=== PATIENT | male | born 1960 | race Caucasian/White ===

== ENCOUNTER → 2017-10-01 14:28 | Outpatient (CLI) | payer OTHER, SELFPAY ==
--- NOTE | 2017-10-01 14:33 | RAD_ITS ---
STUDY: X-RAY CHEST REASON FOR EXAM: Male, 57 years old. Congestion since Thanksgiving, several rounds of antibiotics. TECHNIQUE: PA and lateral views of the chest. COMPARISON: None. FINDINGS: There are areas of hyperinflation. Linear left basilar markings likely scarring rather than atelectasis. There is no demonstrated pleural abnormality. Normal size heart. Normal mediastinum and narendra. Normal visualized pulmonary arteries. Normal visualized aortic arch and descending thoracic aorta. There are diffuse degenerative changes of the visualized thoracic spine. There is loss of mid vertebral body height with mild kyphosis. Normal visualized ribs, clavicles, and shoulders. There is no demonstrated abnormality of the visualized soft tissue structures of the upper abdomen. RAD/Chest PA and Lateral IMPRESSION: Component of COPD with mild chronic interstitial lung disease suspected. No pulmonary edema, congestive heart failure or confluent pneumonia. Other nonacute findings as outlined above. Electronically Signed: Pennie Key MD at 3:40 EST , Service support ,
== END ==
PROVIDERS: Family Provider Family Medicine; PCP Family Medicine; Visit Provider Family Medicine
DX: J98.01 Acute bronchospasm (principal)
CPT/HCPCS: 71046

== ENCOUNTER → 2018-06-08 08:46 | Outpatient (CLI) | payer OTHER, SELFPAY ==
[2018-06-08 10:38] LABS: AST(SGOT) 17 U/L (15-37); Alanine Aminotransfer ALT/SGPT 21 U/L (16-61); Anion Gap 4 (5-15); BUN 18 mg/dL (7-18); BUN/Creat Ratio 14.3 RATIO (10-20); Calcium,Total 8.7 mg/dL (8.5-10.1); Chloride 105 mmol/L (98-107); Cholesterol 179 mg/dL (200); Creatinine, Serum 1.26 mg/dL (0.70-1.30); EST Glomerular Filtration Rate 63 mL/min (>60); Est Glom Filt Rate - Afr Amer 76 mL/min (>60); Glucose 95 mg/dL (74-106); High Density Lipoprotein 54 mg/dL; Potassium 4.4 mmol/L (3.5-5.1); Sodium Level 139 mmol/L (136-145); Thyroid Stim Hormone (TSH) 1.48 uIU/mL (0.358-3.74); Triglycerides 68 mg/dL; Very Low Density Lipoprotein 14 mg/dL (5-40)
== END ==
PROVIDERS: Family Provider Family Medicine; PCP Family Medicine; Referring Provider Family Medicine; Visit Provider Family Medicine
DX: E78.5 Hyperlipidemia, unspecified (principal); R89.9 Unspecified abnormal finding in specimens from other organs, systems and tissues
CPT/HCPCS: 36415; 80048; 80061; 83036; 84443; 84450; 84460

== ENCOUNTER → 2018-09-04 14:53 | Outpatient (CLI) | payer OTHER, SELFPAY ==
--- NOTE | 2018-09-04 14:56 | RAD_ITS ---
STUDY: X-RAY CHEST REASON FOR EXAM: Male, 58 years old. Cough, wheezing x4 months. TECHNIQUE: PA and lateral views of the chest. COMPARISON: PA and lateral chest x-ray October 01, 2017. FINDINGS: Curvilinear density in the inferolateral left lower lobe consistent with subsegmental atelectasis or scarring. The lungs are otherwise clear and expanded. There is no demonstrated pleural abnormality. Normal size heart. Normal mediastinum and narendra. Normal visualized pulmonary arteries. Normal visualized aortic arch and descending thoracic aorta. There are stable degenerative changes of the visualized thoracic spine as well as stable mild anterior wedging of 2 contiguous mid thoracic vertebrae, likely T8 and T9. 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 There is no demonstrated abnormality of the visualized soft tissue structures of the upper abdomen. RAD/Chest PA and Lateral IMPRESSION: Minor curvilinear subsegmental atelectasis or scarring in the left lung base. Electronically Signed: Silvestre Kelly MD at 14:58 EST , Service support ,
== END ==
PROVIDERS: Family Provider Family Medicine; PCP Family Medicine; Referring Provider Family Medicine; Visit Provider Family Medicine
DX: R05 Cough (principal)
CPT/HCPCS: 71046

== ENCOUNTER → 2018-10-23 15:48 | Outpatient (CLI) | payer OTHER, SELFPAY ==
[2018-10-23 17:47] LABS: AST(SGOT) 24 U/L (15-37); Alanine Aminotransfer ALT/SGPT 30 U/L (16-61); Cholesterol 198 mg/dL (200); High Density Lipoprotein 50 mg/dL; PSA,Total - Annual Screen 0.59 ng/mL (0.00-4.00); Triglycerides 246 mg/dL; Very Low Density Lipoprotein 49 mg/dL (5-40)
== END ==
PROVIDERS: Family Provider Family Medicine; PCP Family Medicine; Referring Provider Family Medicine; Visit Provider Family Medicine
DX: Z00.00 Encounter for general adult medical examination without abnormal findings (principal); E78.5 Hyperlipidemia, unspecified
CPT/HCPCS: 36415; 80061; 84153; 84450; 84460; G0103

== ENCOUNTER → 2018-11-12 08:52 | Outpatient (CLI) | payer OTHER, SELFPAY ==
--- NOTE | 2018-11-12 09:57 | BD_ITS ---
STUDY: DUAL ENERGY X-RAY ABSORPTIOMETRY / DXA REASON FOR EXAM: Male, 58 years old. Compression fracture of the T8 vertebra. No loss of height. TECHNIQUE: Bone Mineral Density (BMD) measurements of lumbar spine and bilateral hips were obtained. COMPARISON: None. FINDINGS: Lumbar Spine (L1-L4): g/cm2 (1.163) / T-score (-0.5) / Z-score (-0.2) Findings are suggestive of normal bone density with a low fracture risk. Left Femur Total: g/cm2 (1.071) / T-score (-0.2) / Z-score (0.2) Left Femoral Neck: g/cm2 (1.077) / T-score (0.1) / Z-score (0.9) Right Femur Total: g/cm2 (1.029) / T-score (-0.5) / Z-score (-0.1) Right Femoral Neck: g/cm2 (1.035) / T-score (-0.3) / Z-score (0.6) BD/Dexa Bone Density Study IMPRESSION: The patient is considered normal as outlined below according to World [place] Organization (WHO) criteria with a low fracture risk. Reference Information: The T-score is the number of standard deviations above or below the standard which is normal for young adults at their peak bone mineral density. The World Health Organization (WHO) interprets the T-scores as follows: Above -1 Normal bone density Between -1 and -2.5 Osteopenia Equal to / or below -2.5 Osteoporosis As a practical clinical guideline, osteopenia may be graded as follows: Mild -1 through -1.5 Moderate -1.6 through -2.0 Severe -2.1 through -2.4 The Z-score is the number of standard deviations above or below age-matched controls. A Z-score of less than -1.5 would be considered abnormal. References: 1. NIH Osteoporosis and Related Bone Diseases http://www.osteo.org 2. International Society for Clinical Densitometry http://www.iscd.org 3. National Osteoporosis Foundation http://www.nof.org Electronically Signed: Vicente Reid, at 15:45 EDT , Service support ,
== END ==
PROVIDERS: Family Provider Family Medicine; PCP Family Medicine; Referring Provider Family Medicine; Visit Provider Family Medicine
DX: M48.54XA Collapsed vertebra, not elsewhere classified, thoracic region, initial encounter for fracture (principal)
CPT/HCPCS: 77080

== ENCOUNTER 2018-11-18 09:04 | Day surgery (SDC) | payer OTHER, SELFPAY ==
[2018-11-18 09:25] VITALS: BP 135/81; PULSE 69; RESP 16; TEMP 36.7; O2SAT 99; BMI 24.6
--- NOTE | 2018-11-18 09:59 | PCM.HP.STD ---
Problem List (1) Screening for colon cancer Status: Acute History of Present Illness Date of Admission: 11/18/18 The patient is a 58 year old M who presents for screening colonoscopy. His last colonoscopy was more than 20 years ago Past Medical History Allergies No Known Allergies Allergy (Verified 11/14/18 11:29) Home Medications: Ambulatory Orders Medication Instructions Recorded Aspirin [Aspirin, Baby] 81 mg PO QHS 11/14/18 Atorvastatin Calcium [Lipitor] 20 mg PO QHS 11/14/18 Smoking Status: Never smoker - *Family History Maternal History Items: No pertinent history Review of Systems Cardiovascular: Denies: Chest Pain, Chest Pressure, Chest Tightness, Palpitations Respiratory: Denies: Cough, Hemoptysis, Shortness of breath at rest, Shortness of breath upon exertion, Wheezing Gastrointestinal: Denies: Abdominal Pain, Constipation, Diarrhea, Hematemesis, Nausea, Melena, Vomiting VTE Information - Inpt Only VTE Present on Admission: No VTE Mechan Device Prophylaxis: None VTE Pharm Prophylaxis ordered?: No Reason prophylaxis not ordered:: Treatment Not Indicated Patient Problems: Active and Suspected Problems Screening for colon cancer (Acute) - Physical Exam General: Alert, Oriented x3 Lungs: Clear to auscultation Cardiovascular: Regular rate, Regular Rhythm, No murmurs Abdomen: Bowel Sounds Present, Soft, Non Tender, Non-Distended Vital Signs Temp Pulse Resp BP Pulse Ox 98.1 F 69 16 135/81 H 99 11/18/18 09:25 11/18/18 09:25 11/18/18 09:25 11/18/18 09:25 11/18/18 09:25 Oxygen Delivery Method Room Air Weight: 181 lb 7.047 oz Body Mass Index (BMI) 24.6 Assessment/Plan All Active Problems Screening for colon cancer (Acute) My plan is to perform a colonoscopy. Risk and benefits have been reviewed in detail with the patient and his . Including but not limited to bleeding injury to the colon which could require further surgeries. Patient agrees to proceed.
[2018-11-18 10:25] VITALS: BP 107/78; BP 135/81; PULSE 59; RESP 16; TEMP 36.8; O2SAT 95
--- NOTE | 2018-11-18 10:26 | OP.ENDO_ITS ---
11/18/2018 Keke Boyd [address] [place] [address] Re : Colonoscopy procedure for Damien Braden Dear Dr. Boyd This procedure was performed on Sunday, November 18, 2018. My impressions and recommendations are as follows: Impressions : - The entire examined colon is normal. - No specimens collected. Recommendations : - Discharge patient to home. - Resume previous diet. - Continue present medications. - Repeat colonoscopy in 5 years because the bowel preparation was poor. - Return to primary care physician at appointment to be scheduled. My findings are described in the full procedure note, which is enclosed. If I can be of further assistance, please feel free to contact me at Doctor phone number(s): , Fax: [phone], Work: . Sincerely, MD Hubert Leigh MD 11/18/2018 10:26:29 AM This report has been signed electronically.
[2018-11-18 10:30] VITALS: BP 108/73; BP 135/81; PULSE 59; RESP 16; O2SAT 95
[2018-11-18 10:35] VITALS: BP 108/73; BP 135/81; PULSE 54; RESP 16; O2SAT 94
[2018-11-18 10:40] VITALS: BP 109/76; BP 135/81; PULSE 61; RESP 16; TEMP 36.7; O2SAT 94
[2018-11-18 10:58] VITALS: BP 135/81
== END 2018-11-18 11:09 | disposition home or self-care (01) ==
LOC: EN 09:04 → AC 09:06
PROVIDERS: Family Provider Family Medicine; PCP Family Medicine; Referring Provider Surgery; Visit Provider Surgery
PROC: 0DJD8ZZ Inspection of Lower Intestinal Tract, Via Natural or Artificial Opening Endoscopic (ICD-10-PCS; CPT 45378; principal; 2018-11-18 09:55)
DX: Z12.11 Encounter for screening for malignant neoplasm of colon (principal); E78.00 Pure hypercholesterolemia, unspecified; J45.909 Unspecified asthma, uncomplicated; G47.30 Sleep apnea, unspecified; Z79.82 Long term (current) use of aspirin; Z79.899 Other long term (current) drug therapy
CPT/HCPCS: 45378; J7120; J1610

== ENCOUNTER → 2020-06-22 12:07 | Outpatient (CLI) | payer BC, SELFPAY ==
[2020-06-22 11:16] VITALS: BMI 24.0
[2020-06-22 12:34] LABS: Absolute Lymphocyte Count 1.72 X10^3/uL (0.83-4.51); Basophil# 0.11 X10^3/uL; Basophil% 1.5 % (0-1); Eosinophil# 0.76 X10^3/uL; Eosinophils% 10.5 % (0-5); Hematocrit 44.8 % (40-54); Hemoglobin 14.7 g/dL (13.0-16.5); Lymphocyte # 1.72 X10^3/ul (4.0); Lymphocyte % 23.8 % (19-41); Mean Corp Hgb Conc 32.8 g/dL (32-36); Mean Corpuscular Hgb 29.3 pg (27.0-32.0); Mean Corpuscular Volume 89.4 fL (80-94); Mean Platelet Vol. 9.3 fl (6.2-12.0); Monocyte# 0.63 X10^3/uL; Monocyte% 8.7 % (0-10); NRBC Flagged by Analyzer 0 % (0-5); Neutrophil # 3.97 X10^3/uL (2.7-7.7); Neutrophil % 54.9 % (47-70); Platelet Count 220 K/mm3 (150-450); RBC Distribution Width SD 39.4 fl (35.1-43.9); Red Blood Count 5.01 M/mm3 (4.6-6.2); White Blood Count 7.2 K/mm3 (4.4-11.0)
[2020-06-24 20:08] LABS: Alternaria tenuis 1.61 kU/L (Class III); Ash, White 0.34 kU/L (Class I); Aspergillus fumigatus 0.18 kU/L (Class 0/I); Birch <0.10 kU/L (Class 0); Black Walnut 0.43 kU/L (Class I); Cat Hair / Dander,Stand 4.98 kU/L (Class IV); Cedar, Mountain 0.47 kU/L (Class I); Cockroach, American 0.27 kU/L (Class 0/I); Cottonwood 0.42 kU/L (Class I); D farinae Mite 0.43 kU/L (Class I); D pteronyssinus 0.44 kU/L (Class I); Dog Epithelia 5.57 kU/L (Class IV); Elm, American White 0.47 kU/L (Class I); Immunoglobulin E 650 IU/mL (6-495); Mulberry, White 0.25 kU/L (Class 0/I); Oak, White 0.36 kU/L (Class I); Pecan 0.34 kU/L (Class I); Penicillium Notatum <0.10 kU/L (Class 0); Ragweed, Short/Common 0.57 kU/L (Class II); Russian Thistle 0.44 kU/L (Class I); Sheep Sorrel 0.39 kU/L (Class I); Sycamore, American 0.37 kU/L (Class I); Timothy Grass 0.42 kU/L (Class I)
[2020-06-24 21:37] LABS: Mouse Urine <0.10 kU/L (Class 0)
[2020-06-26 03:06] LABS: Aspirgillus flavus Negative (Neg:<1:1); Aspirgillus fumigatus Negative (Neg:<1:1); Aspirgillus niger Negative (Neg:<1:1); Cytoplasmic Ab (C-ANCA) <1:20 titer (Neg:<1:20)
[2020-06-28 10:04] LABS: Immunoglobulin E 678 IU/mL (6-495); Perinuclear Ab (P-ANCA) <1:20 titer (Neg:<1:20)
== END ==
PROVIDERS: PCP Family Medicine; Referring Provider Internal Medicine Critical Care Medicine; Visit Provider Internal Medicine Critical Care Medicine
DX: J45.909 Unspecified asthma, uncomplicated (principal)
CPT/HCPCS: 36415; 82785; 85025; 86003; 86256; 86606

== ENCOUNTER → 2020-06-29 08:11 | Outpatient (CLI) | payer BC, SELFPAY ==
[2020-06-22 11:16] VITALS: BMI 24.0
--- NOTE | 2020-06-29 15:13 | PFTCOMP_ITS ---
COMPLETE PULMONARY FUNCTION TEST INTERPRETATION Brief HPI: Patient is a 60 year old male, currently under the care of Dr. Chatman, who presents to [facility] for complete pulmonary function tests secondary to diagnosis of asthma. Respiratory therapist reports good effort and reproducible results. Interpretation: Forced expiration spirometry shows no large airways obstructive ventilatory defect with an FEV1 of 101% predicted. There is no significant bronchodilator response by strict ATS criteria, but this barely missed criteria. Spirograms are of good quality and plateau slowly, indicating slowly emptying areas of the lungs. The respiratory flow volume loop shows decreased expiratory flow rates at high lung volumes consistent with small airways obstruction. Lung volumes by body plethysmography show a normal total lung capacity at 7.89 L, 111% predicted. All other lung volumes are within normal limits. Diffusion capacity by carbon monoxide is elevated at 132% predicted. The airway resistance is normal. No previous pulmonary function tests were available for review. Impression: Grossly normal pulmonary function test that barely misses criteria for a positive bronchodilator response.
== END ==
PROVIDERS: PCP Family Medicine; Referring Provider Internal Medicine Critical Care Medicine; Visit Provider Internal Medicine Critical Care Medicine
DX: J45.909 Unspecified asthma, uncomplicated (principal)
CPT/HCPCS: 94060; 94726; 94729

== ENCOUNTER → 2020-09-10 11:23 | Outpatient (CLI) | payer BC, SELFPAY ==
[2020-09-10 10:48] VITALS: BMI 25.3
[2020-09-10 11:43] LABS: Absolute Lymphocyte Count 1.94 X10^3/uL (0.83-4.51); Absolute Neutrophil Count 4.7 X10^3/uL (2.0-7.7); Basophil% 1.2 % (0-1); Eosinophils% 7.3 % (0-5); Hemoglobin 14.9 g/dL (13.0-16.5); Lymphocyte # 1.94 X10^3/ul (4.0); Lymphocyte % 23.7 % (19-41); Mean Corp Hgb Conc 33.1 g/dL (32-36); Mean Corpuscular Hgb 29.5 pg (27.0-32.0); Mean Corpuscular Volume 89.1 fL (80-94); Mean Platelet Vol. 9.4 fl (6.2-12.0); Monocyte# 0.75 X10^3/uL; Monocyte% 9.2 % (0-10); NRBC Flagged by Analyzer 0 % (0-5); Neutrophil # 4.74 X10^3/uL (2.7-7.7); Neutrophil % 57.9 % (47-70); Platelet Count 241 K/mm3 (150-450); RBC Distribution Width CV 12.3 % (11.6-14.6); RBC Distribution Width SD 40.3 fl (35.1-43.9); Red Blood Count 5.05 M/mm3 (4.6-6.2); White Blood Count 8.2 K/mm3 (4.4-11.0)
[2020-09-13 14:09] LABS: Alternaria alternata 1.55 kU/L (Class III); Bermuda Grass 0.26 kU/L (Class 0/I); Bluegrass, Kentucky 0.31 kU/L (Class 0/I); Cat Hair/Dander, Standard 4.73 kU/L (Class IV); D farinae Mite 0.41 kU/L (Class I); D pteronyssinus 0.32 kU/L (Class I); Dog Epithelia 5.09 kU/L (Class IV); Elm, American White 0.37 kU/L (Class I); Mouse Urine <0.10 kU/L (Class 0); Oak, White 0.26 kU/L (Class 0/I); Plantain, English 0.27 kU/L (Class 0/I); Ragweed, Short/Common 0.38 kU/L (Class I)
[2020-09-13 15:18] LABS: ANTINUCLEAR ANTIBODIES DIRECT Negative (Negative)
[2020-09-14 20:07] LABS: Aspirgillus flavus Negative (Neg:<1:1); Aspirgillus fumigatus Negative (Neg:<1:1); Aspirgillus niger Negative (Neg:<1:1)
[2020-09-14 21:20] LABS: Immunoglobulin E 596 IU/mL (6-495)
== END ==
PROVIDERS: PCP Family Medicine; Referring Provider Nurse Practitioner Acute Care; Visit Provider Nurse Practitioner Acute Care
DX: J45.909 Unspecified asthma, uncomplicated (principal)
CPT/HCPCS: 36415; 82785; 85025; 86003; 86038; 86225; 86235; 86606

== ENCOUNTER → 2020-10-06 08:16 | Outpatient (CLI) | payer BC, SELFPAY ==
[2020-09-22 14:08] VITALS: BMI 25.3
--- NOTE | 2020-10-06 08:20 | CT_ITS ---
STUDY: CT MAXILLOFACIAL SINUSES REASON FOR EXAM: Male, 60 years old. Sinusitis x years, congestion, drainage now causing hoarseness. No prior surgery. [employer] navigation protocol. RADIATION DOSAGE (If Supplied By Facility): CTDIvol = ( 33.06 ) mGy, DLP = ( 912.36 ) mGycm TECHNIQUE: The patient was scanned in a multi detector CT scanner. High resolution axial imaging was performed without the administration of intravenous contrast material. Sagittal and coronal images were reconstructed. Individualized dose optimization techniques were used for this CT. COMPARISON: None. FINDINGS: FRONTAL SINUSES: Mucosal thickening of the anterior aspect of the left frontal sinus. ETHMOIDAL SINUSES: Opacification of the ethmoid sinuses. MAXILLARY SINUSES: Nodular mucosal thickening of the maxillary sinuses bilaterally. SPHENOIDAL SINUSES: Minimal mucosal thickening along the anterior aspect of the right sphenoid sinus. There is compromise of the ostiomeatal complexes bilaterally due to mucosal hypertrophy. There is a elías bullosa of the right middle turbinate. There is hypertrophy of the right inferior nasal turbinate. Normal midline nasal septum. There is patency of the bilateral nasal airways. Nasal septal deviation towards the left side of midline with a bony spur. The visualized osseous structures are normal. The visualized bilateral orbital contents are normal. CT/Sinus/Facial Bone IMPRESSION: Pansinusitis. Hypertrophy of the right inferior turbinate and nasal septal deviation towards the left side of the midline. Electronically Signed: Vicente Reid MD at 9:02 EST , Service support ,
== END ==
PROVIDERS: PCP Family Medicine; Referring Provider Otolaryngology; Visit Provider Otolaryngology
DX: J32.9 Chronic sinusitis, unspecified (principal)
CPT/HCPCS: 70486

== ENCOUNTER → 2020-11-01 14:16 | Outpatient (CLI) | payer BC, SELFPAY ==
[2020-09-22 14:08] VITALS: BMI 25.3
== END ==
PROVIDERS: PCP Family Medicine; Referring Provider Otolaryngology; Visit Provider Otolaryngology
DX: Z11.59 Encounter for screening for other viral diseases (principal)
CPT/HCPCS: 87635; C9803; U0005; U0003

== ENCOUNTER → 2021-05-03 07:37 | Outpatient (CLI) | payer BC, SELFPAY ==
[2021-05-03 08:11] LABS: Absolute Lymphocyte Count 1.93 X10^3/uL (0.83-4.51); Absolute Neutrophil Count 3.1 X10^3/uL (2.0-7.7); Basophil# 0.09 X10^3/uL; Basophil% 1.4 % (0-1); Eosinophil# 0.69 X10^3/uL; Eosinophils% 10.7 % (0-5); Hemoglobin 13.9 g/dL (13.0-16.5); Lymphocyte # 1.93 X10^3/ul (0.83-4.51); Lymphocyte % 29.9 % (19-41); Mean Corp Hgb Conc 33.1 g/dL (32-36); Mean Corpuscular Hgb 29.5 pg (27.0-32.0); Mean Corpuscular Volume 89.2 fL (80-94); Mean Platelet Vol. 9.2 fl (6.2-12.0); Monocyte# 0.58 X10^3/uL; NRBC Flagged by Analyzer 0 % (0-5); Neutrophil # 3.12 X10^3/uL (2.7-7.7); Neutrophil % 48.4 % (47-70); Platelet Count 213 K/mm3 (150-450); RBC Distribution Width CV 12.6 % (11.6-14.6); RBC Distribution Width SD 41.1 fl (35.1-43.9); Red Blood Count 4.71 M/mm3 (4.6-6.2); White Blood Count 6.5 K/mm3 (4.4-11.0)
[2021-05-06 08:35] LABS: Immunoglobulin E 661 IU/mL (6-495)
== END ==
PROVIDERS: PCP Family Medicine; Referring Provider Internal Medicine Critical Care Medicine; Visit Provider Internal Medicine Critical Care Medicine
DX: J45.50 Severe persistent asthma, uncomplicated (principal)
CPT/HCPCS: 36415; 82785; 85025

== ENCOUNTER → 2021-05-26 15:51 | Outpatient (CLI) | payer BC, SELFPAY ==
--- NOTE | 2021-05-26 15:53 | CT_ITS ---
INDICATION: CHRONIC SINUSITIS EXAMINATION: CT SINUSES - CT Sinuses W/O Contrast Injection TECHNIQUE: Helically acquired images were obtained of the paranasal sinuses. A radiation dose optimization technique was used for this scan. IV Contrast dosage and agent: COMPARISON: 10/06/2020 FINDINGS: Persistent paranasal sinus disease with scattered mucosal thickening throughout the ethmoid air cells, left frontoethmoidal recess and bilateral maxillary sinuses. Interval increase in mucosal thickening left maxillary sinus compared to the prior exam and decrease in mucosal thickening of the right maxillary sinus compared to the prior exam. Sphenoid sinuses are clear. Mastoid air cells and middle ears are normally aerated. No sinus wall sclerosis. There is a abnormally smaller right maxillary sinus compared to the left. Moderate leftward spurring of the bony nasal septum. Asymmetric enlargement right inferior turbinate and right middle turbinate compared to the left. Small right middle turbinate elías bullosa. There is narrowing of the left maxillary sinus outflow tract. C4-5 incompletely visualized degenerative endplate changes and facet arthropathy. In the right posterior fossa adjacent to the sigmoid sinuses a 5 mm wide vascular channel, incompletely assessed on this unenhanced exam. CT/Sinus/Facial Bone IMPRESSION: Persistent paranasal sinus disease. Small right maxillary sinus may represent chronic changes from chronic sinus disease. Obstructive paranasal sinus anatomy as above. Incompletely visualized vascular channel through the right occipital bone which appears to communicate the sigmoid sinus with extracranial vessel, incompletely visualized. Electronically Signed: Doc Brown DO at 0:17 EDT Tel , Service support ,
== END ==
PROVIDERS: PCP Family Medicine; Referring Provider Otolaryngology; Visit Provider Otolaryngology
DX: J32.8 Other chronic sinusitis (principal)
CPT/HCPCS: 70486

== ENCOUNTER → 2021-06-05 | Outpatient (CLI) | payer BC, SELFPAY | END | disposition home or self-care (01) | PROVIDERS: PCP Family Medicine; Referring Provider Physician Assistant; Visit Provider Physician Assistant | DX: R50.9 Fever, unspecified (principal) | CPT/HCPCS: 87635; U0005; U0003 ==

== ENCOUNTER → 2021-08-03 09:02 | Outpatient (CLI) | payer BC, SELFPAY ==
--- NOTE | 2021-08-03 09:06 | EKG12_ITS ---
Test Reason : PRE-OP Blood Pressure : / mmHG Vent. Rate : 065 BPM Atrial Rate : 065 BPM P-R Int : 160 ms QRS Dur : 134 ms QT Int : 428 ms P-R-T Axes : 002 -09 -24 degrees QTc Int : 445 ms Normal sinus rhythm Right bundle branch block Voltage criteria for left ventricular hypertrophy Abnormal ECG Confirmed by IESHA GRANADOS, CASTILLO ([id number]), health editor DONA DAWSON ([id number]) on 08/04/2021 8:28:12 AM Referred By: Armaan Simmons Confirmed By:CASTILLO JULIAN MD
[2021-08-03 10:27] LABS: Hematocrit 42.4 % (40-54); Mean Corpuscular Hgb 29.3 pg (27.0-32.0); Mean Corpuscular Volume 88.7 fL (80-94); Mean Platelet Vol. 9.6 fl (6.2-12.0); Platelet Count 216 K/mm3 (150-450); RBC Distribution Width CV 12.5 % (11.6-14.6); Red Blood Count 4.78 M/mm3 (4.6-6.2); White Blood Count 5.7 K/mm3 (4.4-11.0)
[2021-08-03 10:59] LABS: Anion Gap 6 (5-15); BUN 17 mg/dL (7-18); Calcium,Total 9.1 mg/dL (8.5-10.1); Chloride 102 mmol/L (98-107); Creatinine, Serum 1.13 mg/dL (0.70-1.30); EST Glomerular Filtration Rate 70 mL/min (>60); Est Glom Filt Rate - Afr Amer 85 mL/min (>60); Glucose 77 mg/dL (74-106); Potassium 4.1 mmol/L (3.5-5.1); Sodium Level 140 mmol/L (136-145)
== END ==
PROVIDERS: PCP Family Medicine; Referring Provider Otolaryngology; Visit Provider Otolaryngology
DX: Z01.818 Encounter for other preprocedural examination (principal)
CPT/HCPCS: 36415; 80048; 85027; 93005

== ENCOUNTER → 2021-08-10 15:08 | Outpatient (CLI) | payer BC, SELFPAY ==
--- NOTE | 2021-08-09 13:38 | NASAL_PTH ---
PATIENT: REGINALD DA SILVA LOC: LAB U#:[id number] AGE/SX: 65/M ROOM: RE08/10/[address]: Dr. Marc Simmons MD : 1960 BED: DIS: SPEC #: [id number] RECD: 08/10/21 15:03 STATUS: KEVIN PHYLLIS #: [id number] BHARTI: 08/09/21 13:[address]: Marc Simmons DEPT: SURGICAL PATHOLOGY RECD BY: Chel Carpenter ENTERED: 08/11/21 09:18 SP TYPE: NASAL SPEC OTHR DR: Dr. Keke Boyd MD [facility] Tissues: A - Ethmoid sinus, NOS B - Ethmoid sinus, NOS Procedures: Decalcification bone/plaque Surgery Specimen Level III HEADER OPERATION: Septoplasty, resection inferior turbinates, functional endoscopic sinus surgery PRE-OP DIAGNOSIS: Deviated nasal septum TISSUE SUBMITTED: A ? Right sinus contents, B ? Left sinus contents MICROSCOPIC DIAGNOSIS A. Right sinus contents, curettings: Consistent with chronic sinusitis. Fragments of bone with no pathologic change. B. Left sinus contents, curettings: Consistent with chronic sinusitis. Fragments of bone with no pathologic change. AM:dai 08/15/2021 MICROSCOPIC DESCRIPTION Slides are reviewed. GROSS DESCRIPTION A - Received in fixative is one container labeled with the patient's name and designated right sinus contents. The specimen consists of multiple irregular and gritty fragments of butler tissue and bone that in aggregate measure 2 x 1 x 0.2 cm. The specimen is totally submitted in one cassette after decalcification. B - Received in fixative is one container labeled with the patient's name and designated left sinus contents. The specimen consists of multiple irregular and gritty fragments of butler tissue and bone that in aggregate measure 3 x 2.5 x 0.2 cm. The specimen is totally submitted in one cassette after decalcification. / AM:dai 08/11/21 TC:3 CPT: 63581 x2, 80515 x2
== END ==
PROVIDERS: PCP Family Medicine; Visit Provider Otolaryngology
DX: J34.2 Deviated nasal septum (principal)
CPT/HCPCS: 88304; 88305; 88311

== ENCOUNTER 2021-09-09 12:00 | Outpatient (CLI) | payer BC, SELFPAY ==
[2021-09-09 16:01] LABS: AST(SGOT) 25 U/L (15-37); Alanine Aminotransfer ALT/SGPT 36 U/L (16-61); Cholesterol 233 mg/dL (200); High Density Lipoprotein 53 mg/dL; PSA,Total - Annual Screen 2.42 ng/mL (0.00-4.00); Triglycerides 124 mg/dL; Very Low Density Lipoprotein 25 mg/dL (5-40)
== END 2021-09-09 23:59 | disposition short-term general hospital (02) ==
LOC: MFPLAB 12:01
PROVIDERS: PCP Family Medicine; Referring Provider Family Medicine; Visit Provider Family Medicine
DX: Z00.00 Encounter for general adult medical examination without abnormal findings (principal); E78.5 Hyperlipidemia, unspecified; Z12.5 Encounter for screening for malignant neoplasm of prostate
CPT/HCPCS: 36415; 80061; 84153; 84450; 84460; G0103

== ENCOUNTER → 2021-12-26 | Outpatient (CLI) | payer BC, SELFPAY ==
--- NOTE | 2021-12-26 07:52 | CT_ITS ---
EXAM: CT MAXILLOFACIAL SINUSES WITHOUT INTRAVENOUS CONTRAST CLINICAL INDICATION: CHRONIC SINUSITIS TECHNIQUE: Helically acquired images were obtained of the maxillofacial sinuses without intravenous contrast. This CT exam was performed using one or more of the following dose reduction techniques: automated exposure control, adjustment of the mA and/or kV according to patient size, and/or use of iterative reconstruction technique. This report was created using [employer] report generation technology. COMPARISON: May 26, 2021 FINDINGS: Paranasal SINUSES: No significant change in the diffuse mucosal thickening of the paranasal sinuses. Interval bilateral maxillary antrostomies with resection of the middle turbinates. Size disparity of the maxillary sinuses in seen. NASAL CAVITY/SEPTUM: Interval septoplasty which is now within the midline. ORBITS: Intraorbital soft tissues are normal. DENTAL: Unremarkable as visualized. No periodontal osseous erosion. BRAIN AND EXTRA-AXIAL SPACES: Anterior cranial fossa is unremarkable. CT/Sinus/Facial Bone IMPRESSION: 1. Interval bilateral maxillary antrostomies with resection of the middle turbinates and septoplasty. 2. Persistent mucosal thickening of the paranasal sinuses. Electronically Signed: Gonzalez Pineda MD at 8:35 EDT ,
== END | disposition home or self-care (01) ==
LOC: CT 07:50
PROVIDERS: PCP Family Medicine; Referring Provider Otolaryngology; Visit Provider Otolaryngology
DX: J32.9 Chronic sinusitis, unspecified (principal)
CPT/HCPCS: 70486

== ENCOUNTER → 2021-12-29 | Outpatient (CLI) | payer BC, SELFPAY ==
[2021-12-29 17:13] LABS: Hematocrit 43.4 % (40-54); Hemoglobin 14.5 g/dL (13.0-16.5); Mean Corp Hgb Conc 33.4 g/dL (32-36); Mean Corpuscular Hgb 29.8 pg (27.0-32.0); Mean Corpuscular Volume 89.1 fL (80-94); Mean Platelet Vol. 9.9 fl (6.2-12.0); Platelet Count 243 K/mm3 (150-450); RBC Distribution Width CV 12.7 % (11.6-14.6); Red Blood Count 4.87 M/mm3 (4.6-6.2); White Blood Count 8.2 K/mm3 (4.4-11.0)
[2022-01-02 14:10] LABS: Absolute CD4 Helper 990 /uL (359-1519); Basophils (Absolute) 0.1 x10E3/uL (0.0-0.2); CD4/CD8 Ratio 1.97 (0.92-3.72); Eosinophils 5 % (Not Estab.); Eosinophils (Absolute) 0.4 x10E3/uL (0.0-0.4); Hematocrit 45.4 % (37.5-51.0); Hemoglobin 14.7 g/dL (13.0-17.7); Immature Granulocytes 1 % (Not Estab.); Immature Granulocytes Absolute 0.1 x10E3/uL (0.0-0.1); Immunoglobulin A 157 mg/dL (61-437); Immunoglobulin G 1124 mg/dL (603-1613); Lymphs 23 % (Not Estab.); Lymphs (Absolute) 1.9 x10E3/uL (0.7-3.1); MCHC 32.4 g/dL (31.5-35.7); MCV 90 fL (79-97); Monocytes 8 % (Not Estab.); Monocytes (Absolute) 0.6 x10E3/uL (0.1-0.9); Neutrophils 62 % (Not Estab.); Neutrophils (Absolute) 5.2 x10E3/uL (1.4-7.0); Percent % CD4 Pos. Lymph. 52.1 % (30.8-58.5); Percent % CD8 Pos. Lymph. 26.5 % (12.0-35.5); Platelets 260 x10E3/uL (150-450); RBC Count 5.07 x10E6/uL (4.14-5.80); RDW 12.5 % (11.6-15.4); WBC Count 8.3 x10E3/uL (3.4-10.8)
[2022-01-02 16:03] LABS: Immunoglobulin M 78 mg/dL (20-172)
== END | disposition home or self-care (01) ==
LOC: LAB 15:57
PROVIDERS: PCP Family Medicine; Visit Provider Otolaryngology
DX: J32.9 Chronic sinusitis, unspecified (principal)
CPT/HCPCS: 36415; 82784; 85027; 86360

== ENCOUNTER → 2022-03-13 | Outpatient (CLI) | payer BC, SELFPAY | END | disposition home or self-care (01) | PROVIDERS: PCP Family Medicine; Visit Provider Otolaryngology | DX: J32.9 Chronic sinusitis, unspecified (principal) | CPT/HCPCS: 87070; 87077; 87205 ==

== ENCOUNTER → 2022-09-11 | Outpatient (CLI) | payer OTHER, SELFPAY ==
[2022-09-11 14:09] LABS: AST(SGOT) 22 U/L (15-37); Alanine Aminotransfer ALT/SGPT 37 U/L (16-61); Cholesterol 273 mg/dL (200); High Density Lipoprotein 62 mg/dL; Triglycerides 135 mg/dL; Very Low Density Lipoprotein 27 mg/dL (5-40)
== END | disposition home or self-care (01) ==
PROVIDERS: PCP Family Medicine; Referring Provider Family Medicine; Visit Provider Family Medicine
DX: E78.5 Hyperlipidemia, unspecified (principal)
CPT/HCPCS: 36415; 80061; 84450; 84460

== ENCOUNTER → 2024-01-25 | Outpatient (CLI) | payer OTHER, SELFPAY ==
[2024-01-25 09:38] LABS: ALB/GLOB Ratio 1.1 RATIO (0.9-2.4); AST(SGOT) 19 U/L (15-37); Alanine Aminotransfer ALT/SGPT 27 U/L (16-61); Albumin, Serum 3.7 g/dL (3.2-5.0); Alkaline Phosphatase 63 U/L (45-117); Anion Gap 7 (5-15); BUN 19 mg/dL (7-18); BUN/Creat Ratio 14.7 RATIO (10-20); Calcium,Total 8.8 mg/dL (8.5-10.1); Chloride 107 mmol/L (98-107); Cholesterol 191 mg/dL (200); Creatinine, Serum 1.29 mg/dL (0.70-1.30); EST Glomerular Filtration Rate 60 mL/min (>60); Est Glom Filt Rate - Afr Amer 72 mL/min (>60); Globulin 3.5 g/dL (2.2-4.2); Glucose 129 mg/dL (74-106); High Density Lipoprotein 57 mg/dL; Protein, Total 7.2 g/dL (6.4-8.2); Sodium Level 138 mmol/L (136-145); Thyroid Stim Hormone (TSH) 2.31 uIU/mL (0.358-3.74); Triglycerides 88 mg/dL; Very Low Density Lipoprotein 18 mg/dL (5-40)
== END | disposition home or self-care (01) ==
LOC: LAB 07:28
PROVIDERS: Internal Medicine Endocrinology, Diabetes & Metabolism; PCP Family Medicine; Visit Provider Registered Nurse
DX: E78.2 Mixed hyperlipidemia (principal)
CPT/HCPCS: 36415; 80053; 80061; 84443

== ENCOUNTER → 2024-05-30 | Outpatient (CLI) | payer OTHER, SELFPAY ==
--- NOTE | 2024-05-30 07:00 | CT_ITS ---
STUDY: CT FACIAL BONES WITHOUT CONTRAST REASON FOR EXAM: Male, 63 years old. CHRONIC SINUSITIS RADIATION DOSAGE (If Supplied By Facility): CTDIvol = ( 33.06 ) mGy, DLP = ( 904.09 ) mGycm TECHNIQUE: The patient was scanned in a multi detector CT scanner. Sagittal and coronal images were reconstructed. Individualized dose optimization techniques were used for this CT. COMPARISON: Comparison is made with prior study December 26, 2021. FINDINGS: Normal soft tissue structures. Normal orbital waters and orbital contents. Normal nasal bones and anterior nasal spine. Normal facial bones. There is no demonstrated fracture. There is evidence of prior resection of the medial aspects of both maxillary sinuses. There is a 1.3 cm polyp or retention cyst along the lateral wall of the left maxillary sinus. Mild degree of bilateral cortical thickening. There is partial opacification of the ethmoid sinuses. Mucosal thickening of the left frontal sinus. CT/Sinus/Facial Bone IMPRESSION: Prior resection of the medial aspects of both maxillary sinuses. Mild degree of mucosal thickening of both maxillary sinuses with a 1.3 cm polyp or retention cyst along the lateral wall the left maxillary sinus. Partial opacification of the ethmoid sinuses and mucosal thickening of the left frontal sinus. Electronically Signed: Vicente Reid MD at 11:58 EDT ,
== END | disposition home or self-care (01) ==
PROVIDERS: PCP Family Medicine; Referring Provider Otolaryngology; Visit Provider Otolaryngology
DX: J32.9 Chronic sinusitis, unspecified (principal)
CPT/HCPCS: 70486

== ENCOUNTER → 2025-03-04 | Outpatient (CLI) | payer OTHER, SELFPAY ==
[2025-03-04 13:52] LABS: PSA,Total - Annual Screen 0.64 ng/mL (0.02-4.00)
== END | disposition home or self-care (01) ==
LOC: LAB 11:31
PROVIDERS: PCP Family Medicine
DX: Z12.5 Encounter for screening for malignant neoplasm of prostate (principal)
CPT/HCPCS: 36415; 84153; G0103

== ENCOUNTER → 2025-06-09 | Outpatient (CLI) | payer OTHER, SELFPAY ==
--- NOTE | 2025-06-09 13:34 | RAD_ITS ---
EXAM: XR Lumbosacral Spine Flexion/Extension Only, 2 or 3 Views CLINICAL INDICATION: PAIN TECHNIQUE: Lateral flexion/extension views of the lumbar spine and sacrum. COMPARISON: No relevant prior studies available. FINDINGS: VERTEBRAE: Moderate facet arthropathy of L3-S1. Normal sagittal alignment. No acute fracture. SACRUM/COCCYX: Unremarkable as visualized. No acute fracture. DISC SPACES: No acute findings. No significant narrowing. SOFT TISSUES: Unremarkable. RAD/L/S Spine Min 4 Views IMPRESSION: 1. No acute fracture. 2. Degenerative changes as above. Reading Location: [id number]
--- NOTE | 2025-06-09 13:34 | RAD_ITS ---
PROCEDURE: THORACIC SPINE 3 VIEWS 06/09/2025 REASON FOR EXAM: POSSIBLE HISTORY OF COMPRESSION FRACTURE T8 TECHNIQUE: Procedure Code: RADSPT Modality: DX Procedure: THORACIC SPINE 3 VIEWS COMPARISON: None. FINDINGS: Vertebrae: No acute bony abnormalities. Discs: Multilevel disc space narrowing with sclerosis. Alignment: Unremarkable. RAD/Thoracic Spine 3 Views IMPRESSION: No acute osseous abnormalities. Reading Location: [id number]
--- NOTE | 2025-06-09 13:34 | RAD_ITS ---
PROCEDURE: THORACIC SPINE 3 VIEWS 06/09/2025 REASON FOR EXAM: POSSIBLE HISTORY OF COMPRESSION FRACTURE T8 TECHNIQUE: Procedure Code: RADSPT Modality: DX Procedure: THORACIC SPINE 3 VIEWS COMPARISON: None. FINDINGS: Vertebrae: No acute bony abnormalities. Discs: Multilevel disc space narrowing with sclerosis. Alignment: Unremarkable. RAD/Thoracic Spine 3 Views IMPRESSION: No acute osseous abnormalities. Reading Location: [id number]
--- NOTE | 2025-06-09 13:34 | RAD_ITS ---
EXAM: XR Lumbosacral Spine Flexion/Extension Only, 2 or 3 Views CLINICAL INDICATION: PAIN TECHNIQUE: Lateral flexion/extension views of the lumbar spine and sacrum. COMPARISON: No relevant prior studies available. FINDINGS: VERTEBRAE: Moderate facet arthropathy of L3-S1. Normal sagittal alignment. No acute fracture. SACRUM/COCCYX: Unremarkable as visualized. No acute fracture. DISC SPACES: No acute findings. No significant narrowing. SOFT TISSUES: Unremarkable. RAD/L/S Spine Min 4 Views IMPRESSION: 1. No acute fracture. 2. Degenerative changes as above. Reading Location: [id number]
== END | disposition home or self-care (01) ==
LOC: MTRAD 13:32
PROVIDERS: PCP Family Medicine; Referring Provider Family Medicine; Visit Provider Family Medicine
DX: M54.50 Low back pain, unspecified (principal)
CPT/HCPCS: 72072; 72110

== ENCOUNTER → 2025-06-13 | Outpatient (CLI) | payer MEDICARE, OTHER, SELFPAY ==
[2025-06-13 08:10] LABS: Hematocrit 43.6 % (40-54); Hemoglobin 14.6 g/dL (13.0-16.5); Immature Granulocytes Count 0.080 X10^3/uL (0.0-0.0); Mean Corp Hgb Conc 33.5 g/dL (32-36); Mean Corpuscular Volume 86.5 fL (80-94); Mean Platelet Vol. 9.3 fl (6.2-12.0); NRBC Flagged by Analyzer 0 % (0-5); Platelet Count 226 K/mm3 (150-450); RBC Distribution Width CV 12.5 % (11.6-14.6); RBC Distribution Width SD 39.0 fl (35.1-43.9); Red Blood Count 5.04 M/mm3 (4.6-6.2); White Blood Count 8.6 K/mm3 (4.4-11.0)
[2025-06-13 08:28] LABS: Creatinine, Urine (random) 161.00 mg/dL (39.00-259.00); Microalbumin,Random Urine < 12.0 mg/L (<20 mg/L)
[2025-06-13 09:01] LABS: AST(SGOT) 20 U/L (<=37); Alanine Aminotransfer ALT/SGPT 23 U/L (<=46); Albumin, Serum 4.2 g/dL (3.4-4.8); Alkaline Phosphatase 52 U/L (40-129); Anion Gap 9 (5-15); BUN 20 mg/dL (4-19); BUN/Creat Ratio 17.7 RATIO (10-20); Calcium,Total 9.1 mg/dL (7.6-11.0); Carbon Dioxide 28.2 mmol/L (21.0-32.0); Chloride 103 mmol/L (98-108); Cholesterol 151 mg/dL (<=200); Globulin 2.8 g/dL (2.2-4.2); Glucose 94 mg/dL (70-99); Low Density Lipoprotein Calc. 70 mg/dL; Potassium 4.1 mmol/L (3.3-5.1); Triglycerides 65 mg/dL; Very Low Density Lipoprotein 13 mg/dL (5-40); cholesterol:hdl ratio screen 2.23
== END | disposition home or self-care (01) ==
PROVIDERS: PCP Family Medicine; Referring Provider Internal Medicine Endocrinology, Diabetes & Metabolism; Visit Provider Internal Medicine Endocrinology, Diabetes & Metabolism
DX: E78.5 Hyperlipidemia, unspecified (principal); R73.01 Impaired fasting glucose; R73.03 Prediabetes
CPT/HCPCS: 80053; 80061; 82043; 82570; 83036; 85025

== ENCOUNTER → 2025-07-20 | Outpatient (CLI) | payer OTHER, MEDICARE, SELFPAY ==
--- NOTE | 2025-07-20 15:46 | US_ITS ---
PROCEDURE: THYROID 07/20/2025 REASON FOR EXAM: NODEULE TECHNIQUE: Procedure Code: USTHY Modality: US Procedure: THYROID COMPARISON: None FINDINGS: Right thyroid lobe size: 3.9 cm 1.3 cm x 0.9 cm Left thyroid lobe size: 3.8 cm x 0.9 cm 1.1 cm Isthmus: 0.3 cm Background parenchymal echotexture is homogeneous. Nodules: No thyroid nodule seen. US/Thyroid IMPRESSION: Unremarkable examination. RECOMMENDATION: Based on most suspicious nodule. Nodule size = largest diameter Only evaluate nodule if =>5 mm. Growth > 20% in 2 dimensions = worsening. Follow up to 4 nodules. Recommend biopsy for no more than 2 nodules. Reading Location: [id number]
== END | disposition home or self-care (01) ==
LOC: US 15:42
PROVIDERS: PCP Family Medicine; Referring Provider Family Medicine; Visit Provider Family Medicine
DX: E04.1 Nontoxic single thyroid nodule (principal)
CPT/HCPCS: 76536

== ENCOUNTER → 2025-07-28 | Outpatient (CLI) | payer OTHER, MEDICARE, SELFPAY ==
--- NOTE | 2025-07-28 15:22 | RAD_ITS ---
PROCEDURE: HIP, UNI W/ PELVIS 2-3 VIEWS 07/28/2025 REASON FOR EXAM: PAIN IN HIP TECHNIQUE: Procedure Code: RAD Modality: DX Procedure: HIP, UNI W/ PELVIS 2-3 VIEWS Laterality: Right COMPARISON: None FINDINGS: Bones: There are no fractures or dislocations. There are no osteolytic or osteoblastic lesions. There appears to be normal mineralization of the osseous structures. Joints: Mild degenerative osteoarthritic changes are seen involving both hips. SI joints are well preserved. Pubic symphysis is unremarkable. Soft tissues: Unremarkable. Other: Phleboliths are seen in the pelvis. Degenerative changes of the lower lumbar spine are noted. Moderate amount of stool and gas is present throughout a nondistended colon. RAD/HIP, UNI W/ Pelvis 2-3 Views IMPRESSION: Mild degenerative osteoarthritic changes are seen involving both hips. Degenerative changes of the lower lumbar spine are noted. Reading Location: [id number]
--- OUTSIDE RECORDS SUMMARY | 2025-07-28 19:02 | XMS RPT_ITS | CCD ---
Author Organization [facility] Care Team Providers Care Out Patient Therapist Name Role Phone Dr. Keke Boyd Primary Care Provider Dr. Keke Boyd Referring Provider Dr. Amol Chatman Attending Provider Keke Boyd Unavailable Unavailable Unavailable Dr. Keke Boyd Primary Care Unavail able Dimas, Elizabeth Attending Unavailable Jolliff, Dr. eKke Shaver Primary Care Unavail able Maroniavahid, Elizabeth Attending Unavailable Jolliff, Dr. Keke Shaver Primary Care Unavail able Maroniavahid, Elizabeth Attending Unavailable Jolliff, Dr. Keke Shaver Primary Care Unavail able Maroniavahid, Elizabeth Attending Unavailable Jolliff, Dr. Keke Shaver Primary Care Unavail able Marnola, Elizabeth Attending Unavailable Maroniavahid, Elizabeth Attending Unavailable Iris, Dr. Marc Quezada Referring Unavailable Oliver, Dr. Keke Shaver Primary Care Unavail able Verona Hi MD Primary Care Provider Dr. Verona Hi MD Primary Care Provider Gloriaorrow Boris YEE Attending Provider [phone] Glorianorth matewanBoris Myers Referring Provider Dr. Verona Hi MD [facility] SH[facility] STAMPERBoris Motley Attending Physician Dr. Verona Hi MD Attending Physician Dr. Verona Hi MD Referring Provider Dr. Amol Chatman DO Attending Physician [phone] Dr. Keke Boyd MD Referring Provider King DARWIN, Dr. Aly Attending Physician Dr. Jermain Solis MD Attending Physician UnavailDr. Jermain Schaefer MD Referring Provider CHANTAL ALVES Attending Unavailable SCHVERONA PATRICIA Primary Care Unavailable HUBERT MORENO Attending Unavailable CHANTAL ALVES Referring Unavailable SCHINMOISES, VERONA Berg Primary Care Unavailable VERONA HI Primary Care Unavailable Jermain Solis Referring Unavailable Jermain Solis Attending Unavailable Verona Hi Primary Care Unavailable McMorrow SHOE STAMPER, Boris Attending Unavailable McMorrow SHOE STAMPER, Boris Referring Unavailable Schinner, Verona Berg Primary Care Unavailable SchVerona patricia Attending Unavailable Verona Hi Referring Unavailable Verona Hi Primary Care Unavailable Keke Boyd Referring Unavailable Amol Chatman Attending Unavailable Verona Hi Primary Care Unavailable Jermain Solis Attending Unavailable Keke Boyd Referring Unavailable Verona Hi Primary Care Unavailable Medications Current Medications Medication Drug Class(es) Dates Sig (Normalized) Sig (Original) allergy shots (3 sources) Start: 10-09-2022 Start: 10-09-2022 allergy shots Active IM October 09, 2022 1:00am weekly Complies with drug therapy Start: 10-09-2022 allergy shots Active IM October 09, 2022 1:00am weekly aspirin 81 mg delayed release oral tablet (14 sources) Platelet Aggregation Inhibitor, Nonsteroidal Anti-inflammatory Drug Start: 02-25-2024 Start: 11-14-2018 End: 12-01-2020 take 1 tablet by mouth at bedtime Aspirin 81 MG tablet,chewable Discontinued 81 mg PO AT BEDTIME November 14, 2018 12:00am December 01, 2020 7:20am [facility] atorvastatin 40 mg oral tablet (17 sources) HMG-CoA Reductase Inhibitor Start: 02-18-2025 take 1 tablet by mouth once daily atorvastatin (LIPITOR) 40 mg tablet Take 1 tablet by mouth once daily. 02/18/2025 Active Start: 11-14-2018 End: 11-20-2022 take 1 tablet by mouth at bedtime Atorvastatin 20 MG tablet Discontinued 20 mg PO AT BEDTIME November 14, 2018 12:00am November 20, 2022 9:32am CHOLESTEROL Atorvastatin Jonas cium 40 MG Oral Tablet Quantity: 0 Refills: 0 Ordered: 03-Apr-2022 DO Active Blood-Glucose Sensor (Freestyle Daisy 3 Plus Sensor) device (3 sources) Start: 09-25-2024 Blood-Glucose Sensor (Freestyle Daisy 3 Plus Sensor) device Active 0 .Route 6 September 25, 2024 1:00am As directed empagliflozin 25 mg oral tablet (1 source) Sodium-Glucose Cotransporter 2 Inhibitor Start: 06-23-2025 take 1 tablet by mouth once daily Start: 06-23-2025 take 1 tablet by mouth once da tiffanie ezetimibe 10 mg oral tablet (8 sources) Dietary Cholesterol Absorption Inhibitor Start: 02-25-2024 End: 05-05-2025 take 1 tablet by mouth once daily Fluticasone Furoate (18 sources) Corticosteroid Start: 06-10-2025 take 200 ug by inhalation once daily Start: 06-10-2025 take 200 ug by inhal ation once daily Fluticasone Furoate (Arnuity Ellipta) 200 mcg/actuation blister with device Active 1 NMA INHALATION daily 09 13June 10, 2025 11:35am administer at approximately the same time(s) each day Complies with drug therapy Start: 08-15-2024 End: 06-10-2025 take 200 ug by inhalation once daily Fluticasone Furoate (Arnuity Ellipta) 200 mcg/actuation blister with device Discontinued 1 NMA INHALATION daily 09 13August 15, 2024 1:00am June 10, 2025 11:35am administer at approximately the same time(s) each day Start: 08-15-2024 take 200 ug by inhal ation once daily Fluticasone Furoate (Arnuity Ellipta) 200 mcg/actuation blister with device Active 1 NMA INHALATION daily 09 13August 15, 2024 1:00am administer at approximately the same time(s) each day Start: 02-26-2023 End: 08-15-2024 Fluticasone Propionate 220 mcg/actuation HFA aerosol inhaler Discontinued 2 NMA INHALATION TWICE A DAY 08 13March 04, 2024 12:36pm August 15, 2024 11:41am administer with spacer Start: 08-06-2020 End: 12-01-2020 Fluticasone Propionate 50 mcg/actuation spray,suspension Discontinued 2 NMA INTRANASAL DAILY 16 August 06, 2020 1:00am December 01, 2020 7:20am Unspecified asthma, uncomplicated Start: 08-06-2020 End: 12-01-2020 Fluticasone Propionate Disco ntinued 2 SPRAY INTRANASAL DAILY August 06, 2020 12:00am December 01, 2020 6:20am omeprazole 40 mg delayed release oral capsule (20 sources) Proton Pump Inhibitor Start: 02-25-2024 take 1 capsule by mouth once daily Start: 02-23-2021 End: 02-21-2023 take 1 capsule by mouth once daily Omeprazole 40 mg capsule,delayed release(DR/EC) Discontinued 40 mg PO DAILY February 23, 2021 12:00am February 21, 2023 8:22am predniSONE 20 mg oral tablet (16 sources) Start: 06-10-2025 take 1 tablet by mouth twice d aily Start: 09-10-2020 End: 09-22-2020 Prednisone 10 mg tablet Disc ontinued 10 mg PO daily 30 September 10, 2020 1:00am September 22, 2020 3:09pm take 4 tabs for three days, then 3 tabs for three days, then 2 tabs for three days, then 1 tab for 3 days Start: 08-06-2020 End: 09-10-2020 take 3 tablets by mouth once daily at mealtime Prednisone 20 mg tablet Discontinued 60 mg PO daily 15 August 06, 2020 1:00am September 10, 2020 11:48am Unspecified asthma, uncomplicated administer with food or milk Start: 08-06-2020 End: 09-10-2020 take 60 mg by mouth once daily at mealtime Prednisone Discontinued 60 MG PO daily August 06, 2020 12:00am September 10, 2020 10:48am administer with food or milk Completed/Discontinued Medications Medication Drug Class(es) Dates Sig (Normalized) Sig (Original) [id number] 200 actuat albuterol 0.09 mg/actuat metered dose inhaler (20 sources) beta2-Adrenergic Agonist Start: 06-22-2020 End: 05-16-2024 Albuterol Sulfate 90 mcg/actuation HFA aerosol inhaler Discontinued 2 NMA INHALATION Q4H as needed for shortness of breath or wheezing 18 01March 16, 2022 7:45am May 16, 2024 3:13pm Start: 06-22-2020 End: 03-16-2022 take 1 puff(s) by inhalation every four hours Albuterol Sulfate Discontinued 2 PUFF INHALATION Q4H December 07, 2020 12:32pm March 16, 2022 6:45am take 2 puff(s) by in halation every four hours as needed for wheezing albuterol HFA (PROAIR HFA) 90 mcg/actuation inhaler Inhale 2 puffs as instructed every 4 hours as needed for wheezing/shortness of breath. Active Budesonide-Formoterol (20 sources) Corticosteroid, beta2-Adrenergic Agonist Start: 05-05-2022 End: 02-21-2023 Budesonide-Formoterol (Symbicort) 160-4.5 mcg/actuation HFA aerosol inhaler Discontinued 2 NMA INHALATION TWICE A DAY 10.2 6 May 05, 2022 1:52pm February 21, 2023 8:31am Start: 05-05-2022 take 1 puff(s) by in halation twice daily Budesonide-Formoterol (Symbicort) 160-4.5 mcg/actuation HFA aerosol inhaler Active 2 PUFF INHALATION TWICE A DAY 10.2 May 05, 2022 12:52pm Start: 05-02-2021 End: 05-05-2022 Budesonide-Formoterol (Symbi jax) 160-4.5 mcg/actuation HFA aerosol inhaler Discontinued 2 NMA INHALATION TWICE A DAY 10.2 May 02, 2021 1:46pm May 05, 2022 1:53pm Start: 05-02-2021 End: 05-05-2022 take 1 puff(s) by inhalation twice daily Budesonide-Formoterol (Symbicort) 160-4.5 mcg/actuation HFA aerosol inhaler Discontinued 2 PUFF INHALATION TWICE A DAY 10.2 May 02, 2021 12:46pm May 05, 2022 12:53pm Start: 05-02-2021 take 1 puff(s) by in halation twice daily Budesonide-Formoterol (Symbicort) 160-4.5 mcg/actuation HFA aerosol inhaler Active 2 PUFF INHALATION TWICE A DAY 10.2 May 02, 2021 1:46pm Start: 12-01-2020 End: 05-02-2021 take 1 puff(s) by inhalation twice daily Budesonide-Formoterol (Symbicort) 160-4.5 mcg/actuation HFA aerosol inhaler Discontinued 2 PUFF INHALATION TWICE A DAY 10.2 December 01, 2020 7:37am May 02, 2021 1:46pm Start: 12-01-2020 End: 05-02-2021 Budesonide-Formoterol (Symbi jax) 160-4.5 mcg/actuation HFA aerosol inhaler Discontinued 2 NMA INHALATION TWICE A DAY 10.2 6 December 01, 2020 12:00am May 02, 2021 1:46pm Start: 12-01-2020 End: 05-02-2021 take 1 puff(s) by inhalation twice daily Budesonide-Formoterol (Symbicort) 160-4.5 mcg/actuation HFA aerosol inhaler Discontinued 2 PUFF INHALATION TWICE A DAY 10.2 November 30, 2020 11:00pm May 02, 2021 12:46pm Start: 12-01-2020 End: 05-02-2021 take 1 puff(s) by inhalation twice daily Budesonide-Formoterol (Symbicort) 160-4.5 mcg/actuation HFA aerosol inhaler Discontinued 2 PUFF INHALATION TWICE A DAY 10.2 December 01, 2020 12:00am May 02, 2021 1:46pm Start: 06-29-2020 End: 12-01-2020 Budesonide-Formoterol (Symbi jax) 160-4.5 mcg/actuation HFA aerosol inhaler Discontinued 2 NMA INHALATION TWICE A DAY 10.2 3 June 29, 2020 11:10am December 01, 2020 7:20am Start: 06-29-2020 End: 12-01-2020 take 1 puff(s) by inhalation twice daily Budesonide-Formoterol (Symbicort) 160-4.5 mcg/actuation HFA aerosol inhaler Discontinued 2 PUFF INHALATION TWICE A DAY 10.2 June 29, 2020 10:10am December 01, 2020 6:20am Start: 06-29-2020 End: 12-01-2020 take 1 puff(s) by inhalation twice daily Budesonide-Formoterol (Symbicort) 160-4.5 mcg/actuation HFA aerosol inhaler Discontinued 2 PUFF INHALATION TWICE A DAY 10.2 June 29, 2020 11:10am December 01, 2020 7:20am Start: 06-22-2020 End: 06-29-2020 take 1 puff(s) by inhalation twice daily Budesonide-Formoterol (Symbicort) 160-4.5 mcg/actuation HFA aerosol inhaler Discontinued 2 PUFF INHALATION TWICE A DAY 10.2 June 22, 2020 12:04pm June 29, 2020 11:10am Start: 06-22-2020 End: 06-29-2020 Budesonide-Formoterol (Symbi jax) 160-4.5 mcg/actuation HFA aerosol inhaler Discontinued 2 NMA INHALATION TWICE A DAY 10.2 3 June 22, 2020 12:00am June 29, 2020 11:10am Start: 06-22-2020 End: 06-29-2020 take 1 puff(s) by inhalation twice daily Budesonide-Formoterol (Symbicort) 160-4.5 mcg/actuation HFA aerosol inhaler Discontinued 2 PUFF INHALATION TWICE A DAY 10.2 June 21, 2020 11:00pm June 29, 2020 10:10am Start: 06-22-2020 End: 06-29-2020 take 1 puff(s) by inhalation twice daily Budesonide-Formoterol (Symbicort) 160-4.5 mcg/actuation HFA aerosol inhaler Discontinued 2 PUFF INHALATION TWICE A DAY 10.2 June 22, 2020 12:00am June 29, 2020 11:10am budesonide-formo terol (SYMBICORT) 160-4.5 mcg/actuation inhaler Inhale as instructed. Active Symbicort 160-4. 5 MCG/ACT Inhalation Aerosol Quantity: 0 Refills: 0 Ordered: 03-Apr-2022 DO Active calcium chloride 0.0014 meq/ml / potassium chloride 0.004 meq/ml / sodium chloride 0.103 meq/ml / sodium lactate 0.028 meq/ml injectable solution (1 source) Start: 03-26-2025 End: 03-26-2025 take 30 mL intravenously every hour 30 mL/hr, INTRAVENOUS, CONTINUOUS, Starting on [place] 03/26/25 at 1100, Until [place] 03/26/25 at 1142, Preprocedure diphenhydrAMINE (1 source) Histamine-1 Receptor Antagonist Start: 03-26-2025 End: 03-26-2025 12.5-50 mg, INTRAVENOUS, DIRECTED, Starting on [place] 03/26/25 at 1130, Until [place] 03/26/25 at 1529, DOSING DIRECTED BY PHYSICIAN FOR PROCEDURAL SEDATION ONLY, Intraprocedure 1 ml fentaNYL 0.05 mg/ml injection (1 source) Opioid Agonist Start: 03-26-2025 End: 03-26-2025 25-100 mcg, INTRAVENOUS, DIRECTED, Starting on [place] 03/26/25 at 1130, Until [place] 03/26/25 at 1529, DOSING DIRECTED BY PHYSICIAN FOR PROCEDURAL SEDATION ONLY, Intraprocedure Flucelvax Quad [id number] (PF) (flu vac qs 2020(2 yr up)CD(PF)) 60 mcg (15 mcg x (2 sources) Start: 05-31-2021 End: 05-31-2021 inject 15 ug by intramuscular injection once Flucelvax Quad (PF) (flu vac qs 2020(2 yr up)CD(PF)) 60 mcg (15 mcg x Discontinued 0.5 ML IM ONCE 0.5 May 31, 2021 8:17am May 31, 2021 8:54am Fluticasone Propionate (Flovent Hfa) 220 mcg/actuation HFA aerosol inhaler (2 sources) Start: 02-28-2023 End: 03-04-2024 Fluticasone Propionate (Flovent Hfa) 220 mcg/actuation HFA aerosol inhaler Discontinued 2 NMA INHALATION TWICE A DAY 08 13February 28, 2023 3:40pm March 04, 2024 12:36pm administer with spacer Start: 02-26-2023 End: 02-28-2023 Fluticasone Propionate (Flov ent Hfa) 220 mcg/actuation HFA aerosol inhaler Discontinued 2 NMA INHALATION TWICE A DAY 12 February 26, 2023 12:00am February 28, 2023 3:40pm administer with spacer Fluticasone Propionate 220 mcg/actuation HFA aerosol inhaler (1 source) Start: 03-04-2024 End: 08-15-2024 Fluticasone Propionate 220 mcg/actuation HFA aerosol inhaler Discontinued 2 NMA INHALATION TWICE A DAY 08 13March 04, 2024 12:36pm August 15, 2024 11:41am administer with spacer glucagon (rdna) 1 mg injection (1 source) Antihypoglycemic Agent Start: 03-26-2025 End: 03-26-2025 0.25-1 mg, INTRAMUSCULAR, DIRECTED, Starting on [place] 03/26/25 at 1130, Until [place] 03/26/25 at 1529, Dosing as directed for intraprocedural use only, Intraprocedure ipratropium bromide 0.042 mg/actuat metered dose nasal spray (7 sources) Anticholinergic Start: 02-23-2021 End: 10-09-2022 Ipratropium [place] 42 mcg (0.06 %) spray,non-aerosol Discontinued 2 NMA INTRANASAL THREE TIMES A DAY 15 02February 23, 2021 12:00am October 09, 2022 9:18am administer into each nostril Start: 02-23-2021 take 1 spray(s) nasa l route three times daily Ipratropium [place] Active 2 SPRAY INTRANASAL THREE TIMES A DAY February 22, 2021 11:00pm administer into each nostril loratadine 10 mg oral capsule (20 sources) Start: 02-23-2021 End: 06-12-2025 take 1 capsule by mouth once daily Loratadine 10 mg capsule Discontinued 10 mg PO DAILY May 05, 2022 1:53pm June 12, 2025 1:08pm Start: 08-06-2020 End: 12-01-2020 take 1 capsule by mouth once daily Loratadine 10 mg capsule Discontinued 10 mg PO daily 02 03August 06, 2020 1:00am December 01, 2020 7:20am Unspecified asthma, uncomplicated End: 02-26-2025 take 1 tablet by mouth once daily loratadine (CLARITIN) 10 mg tablet Take 10 mg by mouth once daily. 02/26/2025 Discontinued 5 ml midazolam 1 mg/ml injection (1 source) Benzodiazepine Start: 03-26-2025 End: 03-26-2025 1-5 mg, INTRAVENOUS, DIRECTED, Starting on [place] 03/26/25 at 1130, Until [place] 03/26/25 at 1529, DOSING DIRECTED BY PHYSICIAN FOR PROCEDURAL SEDATION ONLY, Intraprocedure 120 actuat mometasone furoate 0.1 mg/actuat metered dose inhaler (2 sources) Corticosteroid Start: 02-21-2023 End: 02-26-2023 Mometasone (Asmanex Hfa) 100 mcg/actuation HFA aerosol inhaler Discontinued 2 NMA INHALATION TWICE A DAY 13 February 21, 2023 12:00am February 26, 2023 9:17am Mometasone (Asmanex Hfa) 100 mcg/actuation HFA aerosol inhaler (1 source) Start: 02-21-2023 End: 02-26-2023 Mometasone (Asmanex Hfa) 100 mcg/actuation HFA aerosol inhaler Discontinued 2 NMA INHALATION TWICE A DAY 13 February 21, 2023 12:00am February 26, 2023 9:17am montelukast 10 mg oral tablet (20 sources) Leukotriene Receptor Antagonist Start: 08-06-2020 End: 10-09-2022 take 1 tablet by mouth once daily in the evening Montelukast (Singulair) 10 mg tablet Discontinued 10 mg PO EVERY EVENING 30 6 May 02, 2021 1:46pm October 09, 2022 9:18am rosuvastatin calcium 40 mg oral tablet (11 sources) HMG-CoA Reductase Inhibitor Start: 11-20-2022 End: 04-02-2025 take 1 tablet by mouth once daily Rosuvastatin 40 mg tablet Discontinued 40 mg PO DAILY 90 0 December 05, 2023 5:10pm February 25, 2024 9:46am Problems Active Problems Problem Classification Problem Date Documented Da te Episodic/Chronic Asthma (11 sources) Asthma; Translations: [Unspecified asthma, uncomplicated] Onset: 06-23-2025 Chronic Chronic obstructive pulmonary disease and bronchiectasis (7 sources) Bronchitis; Translations: [Bronchitis, not specified as acute or chronic] 06-22-2020 Episodic Diabetes mellitus without complication (3 sources) Diabetes mellitus; Translations: [Type 2 diabetes mellitus without complications] Onset: 2025 06-15-2025 Chronic Diabetes mellitus without complication (1 source) Prediabetes; Translations: [Prediabetes] Onset: 2025 Episodic Disorders of lipid metabolism (6 sources) Mixed hyperlipidemia; Translations: [Mixed hyperlipidemia] Onset: 2025 03-10-2024 Chronic Fever of unknown origin (7 sources) Fever; Translations: [Fever, unspecified] 06-05-2021 Episodic Other lower respiratory disease (7 sources) Cough; Translations: [Cough with exposure to COVID-19 virus] 06-05-2021 Episodic Other upper respiratory disease (6 sources) Bilateral partial vocal cord paralysis; Translations: [Bilateral paralysis of vocal cords or larynx, partial] Chronic Other upper respiratory disease (3 sources) Allergic rhinitis; Translations: [Allergic rhinitis, unspecified] 05-16-2024 Chronic Other upper respiratory disease (6 sources) Hoarse; Translations: [Dysphonia] Episodic Other upper respiratory disease (6 sources) Disorder of vocal cord; Translations: [Other diseases of vocal cords] Episodic Other upper respiratory disease (6 sources) Dysphonia; Translations: [Dysphonia] Episodic Residual codes; unclassified (7 sources) Obstructive sleep apnea syndrome; Translations: [Obstructive sleep apnea (adult) (pediatric)] 06-22-2020 Chronic Thyroid disorders (1 source) Nontoxic single thyroid nodule; Translations: [Nontoxic uninodular goiter] Onset: 07-09-2025 Chronic Unclassified (1 source) Low back pain, unspecified; Translations: [Low back pain, unspecified] Onset: 06-26-2025 Past or Other Problems Problem Classification Problem Date Documented Da te Episodic/Chronic Other screening for suspected conditions (not mental disorders or infectious disease) (14 sources) Patient encounter status; Translations: [Encounter for screening for malignant neoplasm of colon] Onset: 03-10-2025 11-18-2018 Episodic Sprains and strains (4 sources) Sprain of wrist; Translations: [Unspecified sprain of unspecified wrist, initial encounter] Onset: 04-03-2005 12-30-2024 Episodic Unclassified (2 sources) Patient encounter status 02-26-2025 Results Test Name Value Interpretation Reference Range Facility T4 Free SerPl-mCncon 025 Free T4 [Mass/Vol] 1.2 ng/dL Normal 0.9-1.7 [facility] Comment on above: Order Comment: Rom farias Type: BLOOD SPECIMEN Ordering Facility: [facility] Address: [address] [facility] [place] [address] Performed By: #### 3 016-3, 3024-7 #### [facility] CLIA [id number] [address] [place] [address] [place] THYROGLOBULIN ANTIBODYon Thyroglobulin Ab Qn [IU]/mL Normal <4.0 [facility] Comment on above: Order Comment: Rom farias Type: BLOOD SPECIMEN Ordering Facility: [facility] Address: [place] [address] Result Comment: The Thyroglobulin Antibody test was performed using the Ecochlor DXI paramagnetic particle chemiluminescent immunoassay method. Results obtained with different assay methods or kits cannot be used interchangeably. Performed By: #### T BRYANT #### [facility] CLIA [id number] [address] [place] [address] [place] THYROID PEROXIDASE ANTIBODYo n 07-09-2025 TPO Ab Qn [IU]/mL Normal <5.6 [facility] Comment on above: Order Comment: Rom farias Type: BLOOD SPECIMEN Ordering Facility: [facility] Address: [place] [address] Result Comment: Thyr oid Peroxidase Antibody test is used as an aid in diagnosis of autoimmune thyroid disease. Clinical correlation is required. Performed By: #### M ICRO #### [facility] CLIA [id number] [address] [place] [address] [place] TSH SerPl-aCncon 07-09-2025 TSH Qn 1.940 m[IU]/L Normal 0.270-4.200 [facility] Comment on above: Order Comment: Rom farias Type: BLOOD SPECIMEN Ordering Facility: [facility] Address: [address] [facility] [place] [address] Performed By: #### 3 016-3, 3024-7 #### [facility] CLIA [id number] [address] [place] [address] [place] Absolute lymphocyte countOrd ered By: Verona Hi on 06-13-2025 Lymphocytes Auto (Unsp spec) [#/Vol] 2.98 10*3/uL 0.83-4.51 [facility] Absolute neutrophil countOrd ered By: Verona Hi on 06-13-2025 Neutrophils (Bld) [#/Vol] 4.4 10*3/uL 2.0-7.7 [facility] Anion gap in Serum or Plasma Ordered By: Verona Hi on 06-13-2025 Anion gap [Moles/Vol] 9 mmol/L 01-15 [facility] Automated lymphocyte count a s percentage of total leukocytesOrdered By: Verona Hi on 06-13-2025 Lymphocytes/100 WBC Auto (Unsp spec) 34.8 % [facility] BUN/creatinine ratioOrdered By: Verona Hi on 06-13-2025 Urea nitrogen/Creatinine [Mass ratio] 17.7 mg/mg 06-22 [facility] Basophil percentageOrdered B y: Verona Hi on 06-13-2025 Basophils/100 WBC (Bld) 1.2 % High 0- [facility] Bilirubin, totalOrdered By: Verona Hi on 06-13-2025 Bilirubin [Mass/Vol] 0.46 mg/dL 0.00-1.30 [facility] CBC W/Diff, Automatedon 06-03 Absolute Lymph 2.98 X10 3/uL Normal 0.83-4.51 [facility] Comment on above: Order Comment: Order Date: 06/09/25 Order Info: 0184-1 - CBCD Performed By: #### L 100.0100, L500.4100, L500.4050, L501.9985 #### [facility] [address] [place], [place], [id number] Absolute Neut 4.4 X10 3/uL Normal 2.0-7.7 [facility] Comment on above: Order Comment: Order Date: 06/09/25 Order Info: 0184-1 - CBCD Performed By: #### L 100.0100, L500.4100, L500.4050, L501.9985 #### [facility] [address] [place], [address] Basophils/100 WBC (Bld) 1.2 % High 0-1 [facility] Comment on above: Order Comment: Order Date: 06/09/25 Order Info: 0184-1 - CBCD Performed By: #### L 100.0100, L500.4100, L500.4050, L501.9985 #### [facility] [address] [place], [address] Eosinophils/100 WBC (Bld) 4.0 % Normal 0-5 [facility] Comment on above: Order Comment: Order Date: 06/09/25 Order Info: 0184-1 - CBCD Performed By: #### L 100.0100, L500.4100, L500.4050, [id number] #### [facility] [address] [place], [address] Erythrocyte distribution width (RBC) [Ratio] 12.5 % Normal 11.6-14.6 [facility] Comment on above: Order Comment: Order Date: 06/09/25 Order Info: 0184-1 - CBCD Performed By: #### L 100.0100, L500.4100, L500.4050, [id number] #### [facility] [address] [place], [address] Hematocrit (Bld) [Volume fraction] 43.6 % Normal 40-54 [facility] Comment on above: Order Comment: Order Date: 06/09/25 Order Info: 0184-1 - CBCD Performed By: #### L 100.0100, L500.4100, L500.4050, [id number] #### [facility] [address] [place], [address] Hemoglobin (Bld) [Mass/Vol] 14.6 g/dL Normal 13.0-16.5 [facility] Comment on above: Order Comment: Order Date: 06/09/25 Order Info: 0184-1 - CBCD Performed By: #### L 100.0100, L500.4100, L500.4050, [id number] #### [facility] [address] [place], [address] IG% 0.900 Normal 0.0-0.9 [facility] Comment on above: Order Comment: Order Date: 06/09/25 Order Info: 0184- - CBCD Result Comment: IG% - Immature Granulocytes (promyelocytes, myelocytes and metamyelocytes) > 1% indicates that a LEFT SHIFT is Present. Performed By: #### L 100.0100, L500.4100, L500.4050, L501.9985 #### [facility] Laboratory [address] [place], [address] Lymphocytes/100 WBC (Bld) 34.8 % Normal 19-41 [facility] Comment on above: Order Comment: Order Date: 06/09/25 Order Info: 0184-1 - CBCD Performed By: #### L 100.0100, L500.4100, L500.4050, L501.9985 #### [facility] [address] [place], [address] MCH (RBC) [Entitic mass] 29.0 pg Normal 27.0-32.0 [facility] Comment on above: Order Comment: Order Date: 06/09/25 Order Info: 0184-1 - CBCD Performed By: #### L 100.0100, L500.4100, L500.4050, L501.9985 #### [facility] [address] [place], [address] MCHC (RBC) [Mass/Vol] 33.5 g/dL Normal 32-36 [facility] Comment on above: Order Comment: Order Date: 06/09/25 Order Info: 0184-1 - CBCD Performed By: #### L 100.0100, L500.4100, L500.4050, L501.9985 #### [facility] [address] [place], [address] MCV (RBC) [Entitic vol] 86.5 fL Normal 80-94 [facility] Comment on above: Order Comment: Order Date: 06/09/25 Order Info: 0184-1 - CBCD Performed By: #### L 100.0100, L500.4100, L500.4050, [id number] #### [facility] [address] [place], [address] Monocytes/100 WBC (Bld) 8.2 % Normal 0-10 [facility] Comment on above: Order Comment: Order Date: 06/09/25 Order Info: 0184-1 - CBCD Performed By: #### L 100.0100, L500.4100, L500.4050, [id number] #### [facility] [address] [place], [address] Neutrophils/100 WBC (Bld) 50.9 % Normal 47-70 [facility] Comment on above: Order Comment: Order Date: 06/09/25 Order Info: 0184-1 - CBCD Performed By: #### L 100.0100, L500.4100, L500.4050, L501.9985 #### [facility] [address] [place], [address] Nucleated RBC (Bld) [#/Vol] 0 10*3/uL Normal 0-5 [facility] Comment on above: Order Comment: Order Date: 06/09/25 Order Info: 0184-1 - CBCD Performed By: #### L 100.0100, L500.4100, L500.4050, L501.9985 #### [facility] [address] [place], [address] Platelet mean volume (Bld) [Entitic vol] 9.3 fL Normal 6.2-12.0 [facility] Comment on above: Order Comment: Order Date: 06/09/25 Order Info: 0184-1 - CBCD Performed By: #### L 100.0100, L500.4100, L500.4050, L501.9985 #### [facility] [address] [place], [address] Platelets (Bld) [#/Vol] 226 10*3/uL Normal 150-450 [facility] Comment on above: Order Comment: Order Date: 06/09/25 Order Info: 0184-1 - CBCD Performed By: #### L 100.0100, L500.4100, L500.4050, L501.9985 #### [facility] [address] [place], [address] RBC (Bld) [#/Vol] 5.04 10*6/uL Normal 4.6-6.2 [facility] Comment on above: Order Comment: Order Date: 06/09/25 Order Info: 0184-1 - CBCD Performed By: #### L 100.0100, L500.4100, L500.4050, L501.9985 #### [facility] [address] [place], [address] RDW SD 39.0 fl Normal 35.1-43.9 [facility] Comment on above: Order Comment: Order Date: 06/09/25 Order Info: 0184-1 - CBCD Performed By: #### L 100.0100, L500.4100, L500.4050, L501.9985 #### [facility] [address] [place], [address] WBC (Bld) [#/Vol] 8.6 10*3/uL Normal 4.4-11.[address] [facility] Comment on above: Order Comment: Order Date: 06/09/25 Order Info: 0184-1 - CBCD Performed By: #### L 100.0100, L500.4100, L500.4050, L501.9985 #### [facility] [address] [place], [address] Calculated very low density lipoprotein (VLDL) cholesterol measurementOrdered By: Verona Hi on 06-13-2025 Calculated very low density lipoprotein (VLDL) cholesterol measurement 13 mg/dL 5-40 [facility] Carbon dioxide, total [Moles /volume] in Central venous bloodOrdered By: Verona Hi on 06-13-2025 CO2 [Moles/Vol] 28.2 mmol/L 21.0-32.0 [facility] Chloride assayOrdered By: Tika Hi on 06-13-2025 Chloride [Moles/Vol] 103 mmol/L 98-108 [facility] Comprehensive Metabolic Prof ilon 06-13-2025 Albumin [Mass/Vol] 4.2 g/dL Normal 3.4-4.[address] [facility] Comment on above: Order Comment: Order Date: 06/09/25 Order Info: 0786-1 - CMP Order Info: [id number] - LIPID Performed By: #### L 100.0100, L500.4100, L500.4050, L501.9985 #### [facility] [address] [place], [address] Albumin/Globulin [Mass ratio] 1.5 {ratio} Normal 0.9-2.4 [facility] Comment on above: Order Comment: Order Date: 06/09/25 Order Info: 0786-1 - CMP Order Info: [id number] - LIPID Performed By: #### L 100.0100, L500.4100, L500.4050, L501.9985 #### [facility] [address] [place], [address] ALK PHOS 52 U/L Normal 40-129 [facility] Comment on above: Order Comment: Order Date: 06/09/25 Order Info: 0786-1 - CMP Order Info: [id number] - LIPID Performed By: #### L 100.0100, L500.4100, L500.4050, L501.9985 #### [facility] [address] [place], [address] ALT [Catalytic activity/Vol] 23 U/L Normal <=46 [facility] Comment on above: Order Comment: Order Date: 06/09/25 Order Info: 86-1 - CMP Order Info: [id number] - LIPID Performed By: #### L 100.0100, L500.4100, L500.4050, L501.9985 #### [facility] [address] [place], [address] AST [Catalytic activity/Vol] 20 U/L Normal <=37 [facility] Comment on above: Order Comment: Order Date: 06/09/25 Order Info: 785- - CMP Order Info: [id number] - LIPID Performed By: #### L 100.0100, L500.4100, L500.4050, L501.9985 #### [facility] [address] [place], [address] Bilirubin [Mass/Vol] 0.46 mg/dL Normal 0.00-1.30 [facility] Comment on above: Order Comment: Order Date: 06/09/25 Order Info: 0786- - CMP Order Info: [id number] - LIPID Performed By: #### L 100.0100, L500.4100, L500.4050, L501.9985 #### [facility] [address] [place], [address] BUN/CRE 17.7 RATIO Normal 10-20 [facility] Comment on above: Order Comment: Order Date: 06/09/25 Order Info: 0786-1 - CMP Order Info: [id number] - LIPID Performed By: #### L 100.0100, L500.4100, L500.4050, L501.9985 #### [facility] [address] [place], [address] Calcium [Mass/Vol] 9.1 mg/dL Normal 7.6-11.[address] [facility] Comment on above: Order Comment: Order Date: 06/09/25 Order Info: 0786 - CMP Order Info: [id number] - LIPID Performed By: #### L 100.0100, L500.4100, L500.4050, L501.9985 #### [facility] [address] [place], [address] Chloride [Moles/Vol] 103 mmol/L Normal 98-108 [facility] Comment on above: Order Comment: Order Date: 06/09/25 Order Info: 07 - CMP Order Info: [id number] - LIPID Performed By: #### L 100.0100, L500.4100, L500.4050, L501.9985 #### [facility] [address] [place], [address] CO2 [Moles/Vol] 28.2 mmol/L Normal 21.0-32.0 [facility] Comment on above: Order Comment: Order Date: 06/09/25 Order Info: 0786 - CMP Order Info: [id number] - LIPID Performed By: #### L 100.0100, L500.4100, L500.4050, L501.9985 #### [facility] [address] [place], [address] Creatinine [Mass/Vol] 1.15 mg/dL Normal 0.70-1.20 [facility] Comment on above: Order Comment: Order Date: 06/09/25 Order Info: 0786 - CMP Order Info: [id number] - LIPID Performed By: #### L 100.0100, L500.4100, L500.4050, L501.9985 #### [facility] [address] [place], [address] GAP 9 Normal 5-15 [facility] Comment on above: Order Comment: Order Date: 06/09/25 Order Info: 0786-1 - CMP Order Info: [id number] - LIPID Performed By: #### L 100.0100, L500.4100, L500.4050, L501.9985 #### [facility] [address] [place], [address] GFR/1.73 sq M.predicted among non-blacks MDRD (S/P/Bld) [Vol rate/Area] 71 mL/min/{1.73_m2} Normal >60 [facility] Comment on above: Order Comment: Order Date: 06/09/25 Order Info: 0786-1 - CMP Order Info: [id number] - LIPID Result Comment: mL/m in/1.73m2 CKD-EPI Creatinine Equation (2020) Performed By: #### L 100.0100, L500.4100, L500.4050, L501.9985 #### [facility] [address] [place], [address] Globulin (S) [Mass/Vol] 2.8 g/dL Normal 2.2-4.2 [facility] Comment on above: Order Comment: Order Date: 06/09/25 Order Info: 0786-1 - CMP Order Info: [id number] - LIPID Performed By: #### L 100.0100, L500.4100, L500.4050, L501.9985 #### [facility] [address] [place], [address] Glucose [Mass/Vol] 94 mg/dL Normal 70-[address] [facility] Comment on above: Order Comment: Order Date: 06/09/25 Order Info: 0786-1 - CMP Order Info: [id number] - LIPID Performed By: #### L 100.0100, L500.4100, L500.4050, L501.9985 #### [facility] [address] [place], [address] Potassium [Moles/Vol] 4.1 mmol/L Normal 3.3-5.1 [facility] Comment on above: Order Comment: Order Date: 06/09/25 Order Info: 0786- - CMP Order Info: [id number] - LIPID Performed By: #### L 100.0100, L500.4100, L500.4050, L501.9985 #### [facility] [address] [place], [address] Sodium [Moles/Vol] 140 mmol/L Normal 133-[address] [facility] Comment on above: Order Comment: Order Date: 06/09/25 Order Info: 0786- - CMP Order Info: [id number] - LIPID Performed By: #### L 100.0100, L500.4100, L500.4050, L501.9985 #### [facility] [address] [place], [address] T PROT 6.9 g/dL Normal 5.9-8.4 [facility] Comment on above: Order Comment: Order Date: 06/09/25 Order Info: 0786- - CMP Order Info: [id number] - LIPID Performed By: #### L 100.0100, L500.4100, L500.4050, L501.9985 #### [facility] [address] [place], [address] Urea nitrogen [Mass/Vol] 20 mg/dL High 4-19 [facility] Comment on above: Order Comment: Order Date: 06/09/25 Order Info: 0786- - CMP Order Info: [id number] - LIPID Performed By: #### L 100.0100, L500.4100, L500.4050, L501.9985 #### [facility] [address] [place], [address] Eosinophil percentageOrdered By: Verona Hi on 06-13-2025 Eosinophils/100 WBC (Bld) 4.0 % 0-5 [facility] Erythrocyte distribution wid th ratioOrdered By: Verona Hi on 06-13-2025 Erythrocyte distribution width (RBC) [Ratio] 12.5 % 11.6-14.6 [facility] Erythrocyte distribution wid th standard deviationOrdered By: Verona Hi on 06-13-2025 Erythrocyte distribution width (RBC) [Ratio] 39.0 fl 35.1-43.9 [facility] Glomerular filtration rate ( GFR) estimation/1.73 sq m using serum, plasma, or whole bOrdered By: Verona Hi on 06-13-2025 GFR/1.73 sq M.predicted among non-blacks MDRD (S/P/Bld) [Vol rate/Area] 71 mL/min/{1.73_m2} >60 [facility] Comment on above: mL/min/1.73m2 CKD-EP I Creatinine Equation (2020) Hematocrit Auto (Bld) [Volum e fraction]Ordered By: Verona Hi on 06-13-2025 Hematocrit (Bld) [Volume fraction] 43.6 % 40-54 [facility] Hemoglobin A1con 06-13-2025 HbA1c (Bld) [Mass fraction] 6.3 % High <=5.6 [facility] Comment on above: Order Comment: Order Date: 06/09/25 Order Info: [id number] - A1C Result Comment: Norm al < 5.7 % Prediabetic 5.7 - 6.4 % Diabetic >or= 6.5 % Please note range changes. Performed By: #### L 100.0100, L500.4100, L500.4050, L501.9985 #### [facility] [address] [place] [address]. [place], [address] Hemoglobin A1c percentageOrd ered By: Verona Hi on 06-13-2025 HbA1c (Bld) [Mass fraction] 6.3 % High <5.7 [facility] Comment on above: Normal < 5.7 % Predi abetic 5.7 - 6.4 % Diabetic >or= 6.5 % Please note range changes. Hemoglobin measurementOrdere d By: Verona Hi on 06-13-2025 Hemoglobin (Bld) [Mass/Vol] 14.6 g/dL 13.0-16.5 [facility] Immature granulocytes/100 WB C Auto (Bld)Ordered By: Verona Hi on 06-13-2025 Immature granulocytes/100 WBC (Bld) 0.900 % 0.0-0.9 [facility] Comment on above: IG% - Immature Granu locytes (promyelocytes, myelocytes and metamyelocytes) > 1% indicates that a LEFT SHIFT is Present. LDL calc ser/plasOrdered By: Verona Hi on 06-13-2025 Cholesterol in LDL [Mass/Vol] 70 mg/dL [facility] Comment on above: Boeynzwcgr=105-940 m g/dL & Higher Rwho=710 mg/dL or greaterFriedwald Equation for LDL-C Laboratory - Chemistry and C hemistry - challengeOrdered By: Verona Hi on 06-13-2025 AST [Catalytic activity/Vol] 20 U/L <38 [facility] Lipid Profileon 06-13-2025 CHOL:HDL 2.[address] [facility] Comment on above: Order Comment: Order Date: 06/09/25 Order Info: 0786-1 - CMP Order Info: [id number] - LIPID Performed By: #### L 100.0100, L500.4100, L500.4050, L501.9985 #### [facility] [address] [place], [address] Cholesterol [Mass/Vol] 151 mg/dL Normal <=200 [facility] Comment on above: Order Comment: Order Date: 06/09/25 Order Info: 0786-1 - CMP Order Info: [id number] - LIPID Result Comment: Chol esterol level, Desirable <200 mg/dL Borderline high cholesterol 200-239 mg/dL High cholesterol >=240 mg/dL Recommendations of the NCEP Adult Treatment Panel for the following risk-cutoff thresholds for the [place] population. Performed By: #### L 100.0100, L500.4100, L500.4050, L501.9985 #### [facility] [address] [place], [address] Cholesterol in HDL [Mass/Vol] 68 mg/dL Normal [facility] Comment on above: Order Comment: Order Date: 06/09/25 Order Info: 0786-1 - CMP Order Info: [id number] - LIPID Result Comment: Vandana onal Cholesterol Education Program (NCEP) guidelines: <40 mg/dL: Low HDL-cholesterol (major risk factor for CHD) >= 60 mg/dL: High HDL-cholesterol (negative risk factor for CHD) HDL-cholesterol is affected by a number of factors, e.g. smoking, exercise, hormones, sex and age. Performed By: #### L 100.0100, L500.4100, L500.4050, L501.9985 #### [facility] [address] [place], [address] Cholesterol in LDL [Mass/Vol] 70 mg/dL Normal [facility] Comment on above: Order Comment: Order Date: 06/09/25 Order Info: 0786- - CMP Order Info: [id number] - LIPID Result Comment: Bord otlvcj=082-341 mg/dL Higher Xnfs=096 mg/dL or greater Friedwald Equation for LDL-C Performed By: #### L 100.0100, L500.4100, L500.4050, L501.9985 #### [facility] [address] [place], [address] Cholesterol in VLDL [Mass/Vol] 13 mg/dL Normal 5-40 [facility] Comment on above: Order Comment: Order Date: 06/09/25 Order Info: 0786-1 - CMP Order Info: [id number] - LIPID Performed By: #### L 100.0100, L500.4100, L500.4050, L501.9985 #### [facility] [address] [place], [address] Triglyceride [Mass/Vol] 65 mg/dL Normal [facility] Comment on above: Order Comment: Order Date: 06/09/25 Order Info: 0786-1 - CMP Order Info: [id number] - LIPID Result Comment: The drugs N-Acetylcysteine and Metamizole may falsely depress this assay. Normal range: <150 mg/dL Borderline High: 150-199 mg/dL High: 200-499 mg/dL Very High: >500 mg/dL Performed By: #### L 100.0100, L500.4100, L500.4050, L501.9985 #### [facility] [address] [place], [place], [address] MCV (mean corpuscular volume ) determinationOrdered By: Verona Hi on 06-13-2025 MCV (RBC) [Entitic vol] 86.5 fL 80-94 [facility] Mean corpuscular hemoglobin (MCH) determinationOrdered By: Verona Hi on 06-13-2025 MCH (RBC) [Entitic mass] 29.0 pg 27.0-32.0 [facility] Mean corpuscular hemoglobin concentration (MCHC) determinationOrdered By: Verona Hi on 06-13-2025 MCHC (RBC) [Mass/Vol] 33.5 g/dL 32-36 [facility] Mean platelet volume determi nationOrdered By: Verona Hi on 06-13-2025 Platelet mean volume (Bld) [Entitic vol] 9.3 fL 6.2-12.0 [facility] Microalb:Creat Ratio,Random URon 06-13-2025 Creatinine [Mass/Vol] 161.00 mg/dL Normal 39.00-259.00 [facility] Comment on above: Performed By: #### L 502.0250 #### [facility] [address] [place], [place], [address] MALB:CREAT UNABLE TO CALCULATE Normal <30 mg/g CRE [facility] Comment on above: Performed By: #### L 502.0250 #### [facility] [address] [place], [place], [address] MICROALBUMIN,UR < 12.0 Normal <20 mg/L [facility] Comment on above: Performed By: #### L 502.0250 #### [facility] [address] [place], [address] Microalbumin/creat ratio urO rdered By: Jermain Solis on 06-13-2025 Urine microalbumin/creatinine ratio measurement UNABLE TO CALCULATE mg/g CRE <30 [facility] Monocyte percentageOrdered B y: Verona Hi on 06-13-2025 Monocytes/100 WBC (Bld) 8.2 % 0-10 [facility] Neutrophil percentageOrdered By: Verona Hi on 06-13-2025 Neutrophils/100 WBC (Bld) 50.9 % 47-70 [facility] Nucleated red blood cell per centageOrdered By: Verona Hi on 06-13-2025 Nucleated RBC/100 WBC (Bld) [Ratio] 0 % 0-5 [facility] Platelet countOrdered By: Tika Hi on 06-13-2025 Platelets (Bld) [#/Vol] 226 10*3/uL 150-450 [facility] Potassium measurement (mass/ volume)Ordered By: Verona Hi on 06-13-2025 Potassium (Unsp spec) [Mass/Vol] 4.1 mmol/L 3.3-5.1 [facility] RBC Auto (Bld) [#/Vol]Ordere d By: Verona Hi on 06-13-2025 RBC (Bld) [#/Vol] 5.04 10*6/uL 4.6-6.2 [facility] Random urine creatinine steph urement (mass/volume)Ordered By: Jermain Solis on 06-13-2025 Creatinine Unsp time (U) [Mass/Vol] 161.00 mg/dL 39.00-259.00 [facility] Screening total cholesterol/ high density lipoprotein (HDL) cholesterol ratioOrdered By: Verona Hi on 06-13-2025 Cholesterol.total/Choles terol in HDL [Mass ratio] 2.23 {ratio} [facility] Serum creatinine measurement (mass/volume)Ordered By: Verona Hi on 06-13-2025 Creatinine [Mass/Vol] 1.15 mg/dL 0.70-1.20 [facility] Serum globulin measurementOr dered By: Verona Hi on 06-13-2025 Globulin (S) [Mass/Vol] 2.8 g/dL 2.2-4.2 [facility] Serum glucose measurement (m ass/volume)Ordered By: Verona Hi on 06-13-2025 Glucose [Mass/Vol] 94 mg/dL 70-[address] [facility] Serum or plasma alanine peterson otransferase (ALT) measurementOrdered By: Verona Hi on 06-13-2025 ALT [Catalytic activity/Vol] 23 U/L <47 [facility] Serum or plasma albumin steph urement (mass/volume)Ordered By: Verona Hi on 06-13-2025 Albumin [Mass/Vol] 4.2 g/dL 3.4-4.[address] [facility] Serum or plasma albumin/glob ulin mass ratioOrdered By: Verona Hi on 06-13-2025 Albumin/Globulin [Mass ratio] 1.5 {ratio} 0.9-2.4 [facility] Serum or plasma alkaline josi sphatase measurementOrdered By: Verona Hi on 06-13-2025 ALP [Catalytic activity/Vol] 52 U/L 40-129 [facility] Serum or plasma calcium steph urement (mass/volume)Ordered By: Verona Hi on 06-13-2025 Calcium [Mass/Vol] 9.1 mg/dL 7.6-11.[address] [facility] Serum or plasma cholesterol in HDL measurement (mass/volume)Ordered By: Verona Hi on 06-13-2025 Cholesterol in HDL [Mass/Vol] 68 mg/dL >40 [facility] Comment on above: National Cholesterol Education Program (NCEP) guidelines:<40 mg/dL: Low HDL-cholesterol (major risk factor for CHD)>= 60 mg/dL: High HDL-cholesterol (negative risk factor for CHD)HDL-cholesterol is affected by a number of factors, e.g. smoking, exercise, hormones, sex and age. Serum or plasma cholesterol measurement (mass/volume)Ordered By: Verona Hi on 06-13-2025 Cholesterol [Mass/Vol] 151 mg/dL <201 [facility] Comment on above: Cholesterol level, D esirable <200 mg/dLBorderline high cholesterol 200-239 mg/dLHigh cholesterol >=240 mg/dLRecommendations of the NCEP Adult Treatment Panel for the following risk-cutoff thresholds for the [place] population. Serum or plasma urea nitroge n measurement (mass/volume)Ordered By: Verona Hi on 06-13-2025 Urea nitrogen [Mass/Vol] 20 mg/dL High 4-19 [facility] Sodium levelOrdered By: Verona Hi on 06-13-2025 Sodium [Moles/Vol] 140 mmol/L 133-[address] [facility] Total proteinOrdered By: Adan Hi on 06-13-2025 Protein [Mass/Vol] 6.9 g/dL 5.9-8.[address] [facility] Triglycerides measurementOrd ered By: Verona Hi on 06-13-2025 Triglyceride [Mass/Vol] 65 mg/dL <199 [facility] Comment on above: The drugs N-Acetylcy steine and Metamizole may falsely depress this assay. Normal range: <150 mg/dLBorderline High: 150-199 mg/dLHigh: 200-499 mg/dLVery High: >500 mg/dL Urine albumin measurement [facility] detection limit of 20 mg/L or less (mass/volume)Ordered By: Jermain Solis on 06-13-2025 Albumin DL <= 20 mg/L (U) [Mass/Vol] < 12.0 mg/L <20 mg/L [facility] White blood cell (WBC) count Ordered By: Verona Hi on 06-13-2025 WBC (Bld) [#/Vol] 8.6 10*3/uL 4.4-11.[address] [facility] Endocrinology Visit Reporton 06-12-2025 Endocrinology Visit Report [facility] [address] [place] [address] [address] [place] [address] OFFICE VISIT Date of Service: 06/12/25 MR#: [id number] Acct: [id number] Name: REGINALD BRADEN Rep #: [id number] : 1960 Provider: Lukas Panchal Age/Sex: 64/M [place] [facility] [place]: Signed Intake Vital Signs 05/16/24 10:59 06/10/25 08:46 06/12/25 13:02 Height 6 ft 6 ft 6 ft Weight: 187 lb 4 oz BMI 25.4 BP 148/80 H Blood Pressure Location Rt brachial Position Sitting Pulse 59 L Pulse Source Monitor Pulse Oximetry (%) 97 Oxygen Delivery Method room air Intake Visit Reasons: 16 M FU Chief Complaint: Hyperlipidemia/pre-d iabetes Is patient in pain?: No Allergies No Known Allergies Allergy (Verified 06/12/25 13:07) Medications ???Medication ???Instructions ???Recorded ???Confirmed ???Type allergy shots IM 10/09/22 06/12/25 History aspirin 81 mg tablet,delayed 81 mg PO DAILY 02/25/24 06/12/25 H istory release (Adult Low Dose Aspirin) omeprazole 40 mg capsule,delayed 40 mg PO QDAY 02/25/24 06/12/25 Hi story release albuterol sulfate 90 mcg/actuation 2 puff inhalation Q4H PRN 06/12/25 Rx aerosol inhaler shortness of breath or wheezing #18 grams FreeStyle Daisy 3 Plus Sensor #6 ea 09/25/24 06/10/25 Rx (blood-glucose sensor) rosuvastatin 40 mg tablet 40 mg PO DAILY #90 tabs 04/02/25 1 Rx ezetimibe 10 mg tablet 10 mg PO DAILY #90 tabs 05/05/25 1 Rx fluticasone furoate 200 1 inh inhalation QDAY #1 ea 06/12/25 Rx mcg/actuation blister powder for inhalation (Arnuity Ellipta) prednisone 20 mg tablet 20 mg PO BID 06/10/25 06/12/25 His tory [facility] Medical History (Updated 06/15/25 @ 07:[address] Jermain Solis MD) Diabetes Mixed hyperlipidemia RICARDO (obstructive sleep apnea) Asthma Surgical History History of surgery on arm Hx of appendectomy Family History Father Asthma Heart disease Diabetes Myocardial infarction age 81 High cholesterol Mother Heart disease Asthma Anxiety Arthritis Depression Myocardial infarction ages 79 and 81 High cholesterol CHF (congestive heart failure) Social History household members: spouse housing: house pets and animals: Yes pets and animals: dog(s) Smoking Status: Never smoker second hand exposure: No alcohol intake: current alcohol intake frequency: 0-2 drinks per day Alcohol type: beer substance use type: does not use what type of physical activity do you participate in: running frequency: 3-4 times per week HPI HPI Chief Complaint: Hyperlipidemia/pre-d iabetes Details: REGINALD BRADEN, is a 64 M who presents to the office today for follow up. He has FMH of hyperlipidemia. His grandfather had an SD in his 60's but was a smoker and drinker. His parents have heart disease, but first events in their 70's. He has never smoked. He drinks about one drink per day. He exercises regularly and follows a healthy diet. He has been on atorvastatin for years and he started ezetimibe 18 months ago. Lipids are controlled. TC 151 LDL 70 HDL 68 A1C is 6.3% He has sciatica and has been on steroids. ROS Const Constitutional: No fatigue, weight change or change in appetite Eyes Eyes: No change in vision ENT ENT: No dizziness/vertigo or difficulty swallowing Cardio Cardiology: No chest pain at rest, chest pain with exertion, shortness of breath or palpitations Musc Musculoskeletal: Positive for joint pain, radiating pain into limb, tingling and sciatica; No abnormal gait or numbness Neuro Neurology: Positive for tingling; No abnormal gait, memory loss or numbness Psych Psychiatric: No change in appetite, No memory loss and No Thoughts of harming yourself/Others Resp Respiratory: No cough, chest congestion or shortness of breath Gastro GI: No abdominal pain, constipation, diarrhea or difficulty swallowing Genitourinary Male: No burning urination Skin Skin: No itchy eyes or wounds Endo Endocrine: No fatigue or weight change Aller/Imm Allergy/Immunologic: No itchy eyes Exam Const General: cooperative, healthy appearing, comfortable, no acute distress, well developed and not cushingoid Nutritional Appearance: well nourished Orientation: alert, awake and oriented x3 HENMT Head: normal to inspection Ears: hearing grossly normal bilaterally Nose: external nose normal Mouth: oral mucosae normal Eyes General: appearance normal, both eyes and all related structures Alignment and Position: alignment normal Periorbital: periorbital findings normal Eyelids: eyelids (more content not included)... Normal [facility] Pulmonary Visit Reporton Pulmonary Visit Report [facility] Pulmonary Medicine [address] [place] [address] OFFICE VISIT Date of Service: 06/10/25 MR#: [id number] Acct: [id number] Name: REGINALD BRADEN Rep #: [id number] : 1960 Provider: Dr. Amol Chatman DO Age/Sex: 64/M Location: [facility].PMW Status: Signed Assessment and Plan Assessment and Plan (1) Asthma: Status: Chronic Qualifiers: Asthma complication type: uncomplicated Asthma persistence: persistent Asthma severity: severe Qualified Code(s): J45.50 - Severe persistent asthma, uncomplicated Plan: The patient remains symptomatically well-controlled on Arnuity Ellipta, which will be continued without change. The patient was instructed to contact our office with any worsening in his breathing quality and/or increasing reliance on his short acting beta agonist. Medications: Refilled fluticasone furoate 200 mcg/actuation (Arnuity Ellipta) administer at approximately the same time(s) each day 1 inh inhalation QDAY 1 ea 11RF HPI HPI Comments Details: The patient is a 64-year-old male who presents to the clinic today for a routine scheduled follow-up office visit due to underlying asthma. His is present at today's office visit as well. If you recall, the patient initially presented to our office in June 2020 for the evaluation of asthma, initially diagnosed in childhood. The patient apparently with time outgrew his symptoms and for a period of time the patient had no respiratory complaints. He reported that a typical trigger for him includes exposure to cat dander. The patient is a lifelong non-smoker and denied having grown up in a smoking household. 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 A multitude of years ago, the patient was diagnosed with mild obstructive sleep apnea, which apparently responded to positional therapy. He was never placed on any form of nocturnal CPAP therapy. Pulmonary function studies completed in June 2020 were grossly within normal limits. The patient did have a partial bronchodilator response. Lab work completed in April 2021 revealed evidence of peripheral eosinophilia along with an elevated IgE of 661. Today, the patient reported overall stability in his breathing quality. He has remained compliant with the Arnuity Ellipta and reports no recent use of his rescue inhaler. The patient has not been treated for any recent exacerbations. He denies any significant shortness of breath, chest tightness, wheezing or cough. He continues to receive weekly allergy immunotherapy injections through ENT. In addition, he reported that he is currently scheduled to undergo a sinuplasty surgery in the upcoming weeks with Dr. Simmons. His weight and appetite have been stable. He denies any fevers, chills or night sweats. The patient has already been vaccinated against influenza. 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 Required: No Accompanied by: Allergies No Known Allergies Allergy (Verified 06/10/25 11:12) Medications ???Medication ???Instructions ???Recorded ???Confirmed ???Type loratadine 10 mg capsule 10 mg PO DAILY #90 caps 05/05/22 1 Rx allergy shots IM 10/09/22 06/10/25 History aspirin 81 mg tablet,delayed 81 mg PO DAILY 02/25/24 06/10/25 H istory release (Adult Low Dose Aspirin) omeprazole 40 mg capsule,delayed 40 mg PO QDAY 02/25/24 06/10/25 Hi story release albuterol sulfate 90 mcg/actuation 2 puff inhalation Q4H PRN 06/10/25 Rx aerosol inhaler shortness of breath or wheezing #18 grams FreeStyle Daisy 3 Plus Sensor #6 ea 09/25/24 06/10/25 Rx (blood-glucose sensor) rosuvastatin 40 mg tablet 40 mg PO DAILY #90 tabs 04/02/25 1 Rx ezetimibe 10 mg tablet 10 mg PO DAILY #90 tabs 05/05/25 1 Rx fluticasone furoate 200 1 inh inhalation QDAY #1 ea 06/10/25 Rx mcg/actuation blister powder for inhalation (Arnuity Ellipta) prednisone 20 mg tablet 20 mg PO BID 06/10/25 06/10/25 His tory [facility] Medical History Mixed hyperlipidemia RICARDO (obstructive sleep apnea) Asthma Surgical History History of surgery on arm Hx of appendectomy Family History Father Asthma Heart disease Diabetes Myocardial infarction age (more content not included)... Normal [facility] L/S Spine Min 4 Viewson L/S Spine Min 4 Views [facility] Imaging Services [address] [place], [place] [id number] L/S Spine Min 4 Views MR#: [id number] Acct: [id number] Name: REGINALD BRADEN Rep #: [id number] : 1960 M 64 From: Alexander Muller MD PCP: Dr. Verona Hi MD Status: REG CLI Study: L/S Spine Min 4 Views Date of Exam: 06/09/25 Exam# [id number] Ordering Dr: Verona Hi MD EXAM: XR Lumbosacral Spine Flexion/Extension Only, 2 or 3 Views CLINICAL INDICATION: PAIN TECHNIQUE: Lateral flexion/extension views of the lumbar spine and sacrum. COMPARISON: No relevant prior studies available. FINDINGS: VERTEBRAE: Moderate facet arthropathy of L3-S1. Normal sagittal alignment. No acute fracture. SACRUM/COCCYX: Unremarkable as visualized. No acute fracture. DISC SPACES: No acute findings. No significant narrowing. SOFT TISSUES: Unremarkable. RAD/L/S Spine Min 4 Views IMPRESSION: 1. No acute fracture. 2. Degenerative changes as above. Reading Location: [facility] CC: Dr. Verona Hi MD Motor Polarizer: Signed Normal [facility] Thoracic Spine 3 Viewson Thoracic Spine 3 Views [facility] Imaging Services [address] [place] [address] Thoracic Spine 3 Views MR#: [id number] Acct: [id number] Name: REGINALD BRADEN Rep #: [id number] : 1960 M 64 From: Gm Soria MD PCP: Dr. Verona Hi MD Status: REG CLI Study: Thoracic Spine 3 Views Date of Exam: 06/09/25 Exam# [id number] Ordering Dr: Verona Hi MD PROCEDURE: THORACIC SPINE 3 VIEWS 06/09/2025 REASON FOR EXAM: POSSIBLE HISTORY OF COMPRESSION FRACTURE T8 TECHNIQUE: Procedure Code: RADSPT Modality: DX Procedure: THORACIC SPINE 3 VIEWS COMPARISON: None. FINDINGS: Vertebrae: No acute bony abnormalities. Discs: Multilevel disc space narrowing with sclerosis. Alignment: Unremarkable. RAD/Thoracic Spine 3 Views IMPRESSION: No acute osseous abnormalities. Reading Location: [facility] CC: Dr. Verona Hi MD Motor Polarizer: Signed Normal [facility] [id number] 03-26-2025 [id number] HNO ID: [id number] Author: LISA MANNING RN Service: ? Author Type: Registered Nurse Type: [id number] Filed: 03/26/2025 11:47 Note Text: The patient received a copy of Colonoscopy discharge instructions that contain information for how to contact the physician who performed the procedure and when to seek medical care. Normal [facility] Colonoscopyon 03-26-2025 Colonoscopy [facility] Gastrointestinal Endoscopy Patient Name: Reginald Braden Procedure Date: 03/26/2025 10:51 AM Date of : 1960 Admit Type: Outpatient Age: 64 Gender: Male Note Status: Finalized Procedure: Colonoscopy Indications: Screening for colorectal malignant neoplasm Providers: Hubert Moreno MD Patient Profile: This is a 64 year old male. Refer to note in patient chart for documentation of history and physical. Last Colonoscopy: 2019. Referring Physician: Chantal Alves (Referring ) Medicines: Fentanyl 100 micrograms IV, Midazolam 5 mg IV, Diphenhydramine 50 mg IV, Glucagon 1 mg IV Complications: No immediate complications. Estimated blood loss: None. Requesting Provider: Procedure: Pre-Anesthesia Assessment: - Prior to the procedure, a History and Physical was performed, and patient medications and allergies were reviewed. The patient's tolerance of previous anesthesia was also reviewed. The risks and benefits of the procedure and the sedation options and risks were discussed with the patient. All questions were answered, and informed consent was obtained. Prior Anticoagulants: The patient has taken no anticoagulant or antiplatelet agents except for aspirin. ASA Grade Assessment: II - A patient with mild systemic disease. After reviewing the risks and benefits, the patient was deemed in satisfactory condition to undergo the procedure. After I obtained informed consent, the scope was passed under direct vision. Throughout the procedure, the patient's blood pressure, pulse, and oxygen saturations were monitored continuously. The Colonoscope was introduced through the anus and advanced to the cecum, identified by appendiceal orifice and ileocecal valve. The colonoscopy was performed without difficulty. The patient tolerated the procedure well. The quality of the bowel preparation was adequate to identify polyps greater than 5 mm in size. The ileocecal valve, appendiceal orifice, and rectum were photographed. Moderate Sedation: The administration of moderate sedation was initiated at 11:06. Moderate (conscious) sedation was personally administered by the endoscopist. The following parameters were monitored: oxygen saturation, heart rate, blood pressure, respiratory rate, EKG, adequacy of pulmonary ventilation, and response to care. Total physician intraservice time was 26 minutes. Findings: The perianal and digital rectal examinations were normal. Non-bleeding internal hemorrhoids were found during retroflexion. The hemorrhoids were mild and small. The exam was otherwise without abnormality. Impression: - Non-bleeding internal hemorrhoids. - The examination was otherwise normal. - No specimens collected. Recommendation: - Patient has a contact number available for emergencies. The signs and symptoms of potential delayed complications were discussed with the patient. Return to normal activities tomorrow. Written discharge instructions were provided to the patient. - Resume previous diet. - Continue present medications. - Repeat colonoscopy in 10 years for screening purposes. - Return to primary care physician PRN. - Resume previous antiplatelet medication today at prior dose. Procedure Code(s): --- Professional --- 20345, Colonoscopy, flexible; diagnostic, including collection of specimen(s) by brushing or washing, when performed (separate procedure) G0500, Moderate sedation services provided by the same physician or other qualified health manager respiratory care performing a gastrointestinal endoscopic service that sedation supports, requiring the presence of an independent trained observer to assist in the monitoring of the patient's level of consciousness and physiological status; initial 15 minutes of intra-service time; patient age 5 years or older (additional time may be reported with 85086, as appropriate) 29235, Moderate sedation; each additional 15 minutes intraservice time Diagnosis Code(s): --- Professional --- Z12.11, Encounter for screening for malignant neoplasm of colon K64.8, Other hemorrhoids CPT copyright 2020 [employer]. All rights reserved. The codes documented in this report are preliminary and upon visiting professor review may be revised to meet current compliance requirements. Attending Participation: I personally performed the entire procedure. Scope In: 11:10:11 AM Scope Out: 11:32:51 AM MD Hubert Zavala MD 03/26/2025 11:36:48 AM This report has been signed electronically by Hubert Moreno MD Number of Addenda: 0 Note Initiated On: 03/26/2025 10:51 AM Estimated Blood Loss: Estimated blood loss: none. Normal [facility] Colonoscopy Study observatio non 03-26-2025 [facility] Gastrointestinal Endoscopy Patient Name: Reginald Braden Procedure Date: 03/26/2025 10:51 AM Date of : 1960 Admit Type: Outpatient Age: 64 Gender: Male Note Status: Finalized Procedure: Colonoscopy Indications: Screening for colorectal malignant neoplasm Providers: Hubert Moreno MD Patient Profile: This is a 64 year old male. Refer to note in patient chart for documentation of history and physical. Last Colonoscopy: 2018. Referring Physician: Chantal Alves (Referring ) Medicines: Fentanyl 100 micrograms IV, Midazolam 5 mg IV, Diphenhydramine 50 mg IV, Glucagon 1 mg IV Complications: No immediate complications. Estimated blood loss: None. Requesting Provider: Procedure: Pre-Anesthesia Assessment: - Prior to the procedure, a History and Physical was performed, and patient medications and allergies were reviewed. The patient's tolerance of previous anesthesia was also reviewed. The risks and benefits of the procedure and the sedation options and risks were discussed with the patient. All questions were answered, and informed consent was obtained. Prior Anticoagulants: The patient has taken no anticoagulant or antiplatelet agents except for aspirin. ASA Grade Assessment: II - A patient with mild systemic disease. After reviewing the risks and benefits, the patient was deemed in satisfactory condition to undergo the procedure. After I obtained informed consent, the scope was passed under direct vision. Throughout the procedure, the patient's blood pressure, pulse, and oxygen saturations were monitored continuously. The Colonoscope was introduced through the anus and advanced to the cecum, identified by appendiceal orifice and ileocecal valve. The colonoscopy was performed without difficulty. The patient tolerated the procedure well. The quality of the bowel preparation was adequate to identify polyps greater than 5 mm in size. The ileocecal valve, appendiceal orifice, and rectum were photographed. Moderate Sedation: The administration of moderate sedation was initiated at 11:06. Moderate (conscious) sedation was personally administered by the endoscopist. The following parameters were monitored: oxygen saturation, heart rate, blood pressure, respiratory rate, EKG, adequacy of pulmonary ventilation, and response to care. Total physician intraservice time was 26 minutes. Findings: The perianal and digital rectal examinations were normal. Non-bleeding internal hemorrhoids were found during retroflexion. The hemorrhoids were mild and small. The exam was otherwise without abnormality. Impression: - Non-bleeding internal hemorrhoids. - The examination was otherwise normal. - No specimens collected. Recommendation: - Patient has a contact number available for emergencies. The signs and symptoms of potential delayed complications were discussed with the patient. Return to normal activities tomorrow. Written discharge instructions were provided to the patient. - Resume previous diet. - Continue present medications. - Repeat colonoscopy in 10 years for screening purposes. - Return to primary care physician PRN. - Resume previous antiplatelet medication today at prior dose. Procedure Code(s): --- Professional --- 99447, Colonoscopy, flexible; diagnostic, including collection of specimen(s) by brushing or washing, when performed (separate procedure) G0500, Moderate sedation services provided by the same physician or other qualified health manager respiratory care performing a gastrointestinal endoscopic service that sedation supports, requiring the presence of an independent trained (more content not included)... [facility] Radiology Study observation (narrative) [facility] HISTORY PHYSICALon HISTORY PHYSICAL HNO ID: [id number] Author: HUBERT MORENO MD Service: General Surgery Author Type: Physician Type: H&P Filed: 03/26/2025 10:56 Note Text: HISTORY AND PHYSICAL Reginald Braden : 1960 REFERRING PHYSICIAN: No referring provider defined for this encounter. CHIEF COMPLAINT: Patient presents with: Consult: Last colonoscopy 2024 HPI: Reginald is a 64 year old male referred for endoscopy. Reginald notes due for screening colonoscopy-poor bowel prep. Reginald denies abdominal pain. Reginald denies diarrhea. Reginald denies constipation. Reginald denies a change in bowel habits. Reginald denies melena. Reginald denies bright red blood per rectum. Reginald denies hemorrhoids. Reginald denies family history of colon issues. Reginald denies heartburn. -takes omeprazole daily with good relief -notes EGD at [facility] recently Reginald denies dysphagia. Reginald denies a history of ulcers/ peptic ulcer disease. Reginald thinks last time he did Golytely, does recall following the instructions, denies any issues with constipation. Reginald has undergone prior endoscopy. Last colonoscopy was 11/[address] Moreno at [facility]. Sedation: MAC Impressions : - The entire examined colon is normal. - No specimens collected. CURRENT MEDICATIONS Current Outpatient Medications Medication Sig ezetimibe (ZETIA) 10 mg tablet Take 1 tablet by mouth once daily. atorvastatin (LIPITOR) 40 mg tablet Take 1 tablet by mouth once daily. albuterol HFA (PROAIR HFA) 90 mcg/actuation inhaler Inhale 2 puffs as instructed every 4 hours as needed for wheezing/shortness of breath. aspirin, enteric coated (ADULT LOW DOSE ASPIRIN) 81 mg EC tablet Take 81 mg by mouth once daily. omeprazole (PRILOSEC) 40 mg capsule Take 40 mg by mouth once daily. budesonide-formotero l (SYMBICORT) 160-4.5 mcg/actuation inhaler Inhale as instructed. No current facility-administere d medications for this visit. ALLERGIES: Patient has no known allergies. PAST MEDICAL HISTORY PAST MEDICAL HISTORY Diagnosis Date Asthma (HCC) Elevated fasting glucose HLD (hyperlipidemia) RICARDO (obstructive sleep apnea) Pain in back Sleep apnea PAST SURGICAL HISTORY PAST SURGICAL HISTORY Procedure Laterality Date APPENDECTOMY 1978 FRACTURE SURGERY Left Left Arm/ Closed reduction SINUS SURGERY HX x 2 FAMILY HISTORY FAMILY HISTORY Problem Relation Age of Onset Coronary Artery Disease Father other (high cholesterolemia) Father other (suicide) Sister Prostate Cancer Paternal Grandmother SOCIAL HISTORY Social History Tobacco Use Smoking status: Never Substance Use Topics Alcohol use: Yes REVIEW OF SYMPTOMS: REVIEW OF SYSTEMS: General: The patient denies fatigue, denies weight loss, denies weight gain, denies feeling hot, and feelings of cold. Eyes: The patient denies glaucoma, denies eye injury/surgery, + glasses or contacts. Ear/Nose/Throat: The patient + allergies, denies hayfever, denies ear infections, and denies bloody noses. Cardiovascular: The patient denies chest pain, denies heart disease, denies high blood pressure, denies high cholesterol, and denies poor circulation. Respiratory: The patient denies tuberculosis, denies pneumonia, denies frequent cough, denies shortness of breath, and denies coughing up blood. Gastrointestinal: The patient denies difficulty swallowing, denies acid reflux, denies ulcers, denies jaundice/hepatitis, denies gallbladder problems, denies vomiting, denies black or tarry stools, denies hemorrhoids, denies bleeding from rectum, denies diverticulitis, denies constipation, denies diarrhea, denies loss of stool control, and denies hernias. Kidney/Bladder: The patient denies kidney stones, denies urine infections, and denies bloody urine. Skin: The patient denies a history of skin cancer, denies bleeding/changing moles, and denies a history of skin rash. Neurologic: The patient denies a history of epilepsy/convulsions , denies headaches, denies head/spinal injuries, and denies stroke/TIA. Psychiatric: The patient denies psychiatric medications, denies depression, and denies voices. Endocrine: The patient denies thyroid disorders, denies diabetes, and denies hormonal problems. Hematologic: The patient denies a history of bruising, denies bleeding, and denies anemia. Infections: The patient denies a history of measles and mumps, denies rheumatic fever, and denies sexually transmitted diseases. Musculoskeletal: The patient denies back pain/injury, denies back problems, denies sciatica, denies knee/foot trouble, denies arthritis, or denies gout. PHYSICAL EXAMINATION: General: The patient is 64 year old, male well nourished, well hydrated in no acute distress. The patient is oriented to time, place, and person. VITALS: Blood pressure 137/78, pulse (!) 55, height 185.4 cm (6' 1), weight 84.8 kg (187 lb), SpO2 98%. Body mass index is 24.67 kg/m?. HEENT: Nor (more content not included)... [facility] - [facility] Screen[facility] 03-04-2025 PSA,TOT SCREEN 0.64 ng/mL Normal 0.02-4.00 [facility] Comment on above: Order Comment: Order Date: 02/18/25 Order Info: [id number] - PSA Comments: screening for prostate cancer Result Comment: This test was performed using the [employer] tPSA method. Measured values of a patient??sample can vary depending on the testing procedure used. PSA values determined on patient samples by different testing procedures cannot be used interchangeably. If there is a change in PSA assays while monitoring therapy, sequential testing should be performed to confirm baseline values. Performed By: #### L [id number] #### [facility] [address] [place], [address] CNOVon 02-26-2025 CNOV Office Visit (GENSWS) REGINALD BRADEN ([id number]) 1960 Date Time Provider Department 02/26/25 3:00 PM CHANTAL ALVES GENS During your visit today, we recorded the following information about you: Pulse Blood pressure Weight Height 55/minute 137/78 84.8 kg 1.854 m Chantal Alves APRN.AURICULOTHERAPIST 02/26/2025 3:25 PM Signed HISTORY AND PHYSICAL Reginald Samuels Jesúskelseaulises : 1960 REFERRING PHYSICIAN: No referring provider defined for this encounter. CHIEF COMPLAINT: Patient presents with: Consult: Last colonoscopy 2024 HPI: Reginald is a 64 year old male referred for endoscopy. Reginald notes due for screening colonoscopy-poor bowel prep. Reginald denies abdominal pain. Reginald denies diarrhea. Reginald denies constipation. Reginald denies a change in bowel habits. Reginald denies melena. Reginlad denies bright red blood per rectum. Reginald denies hemorrhoids. Reginald denies family history of colon issues. Reginald denies heartburn. -takes omeprazole daily with good relief -notes EGD at [facility] recently Reginald denies dysphagia. Reginald denies a history of ulcers/ peptic ulcer disease. Reginald thinks last time he did Golytely, does recall following the instructions, denies any issues with constipation. Reginald has undergone prior endoscopy. Last colonoscopy was 11/[address] Moreno at [facility]. Sedation: MAC Impressions : - The entire examined colon is normal. - No specimens collected. Current Outpatient Medications Medication Sig ezetimibe (ZETIA) 10 mg tablet Take 1 tablet by mouth once daily. atorvastatin (LIPITOR) 40 mg tablet Take 1 tablet by mouth once daily. albuterol HFA (PROAIR HFA) 90 mcg/actuation inhaler Inhale 2 puffs as instructed every 4 hours as needed for wheezing/shortness of breath. aspirin, enteric coated (ADULT LOW DOSE ASPIRIN) 81 mg EC tablet Take 81 mg by mouth once daily. omeprazole (PRILOSEC) 40 mg capsule Take 40 mg by mouth once daily. budesonide-formotero l (SYMBICORT) 160-4.5 mcg/actuation inhaler Inhale as instructed. No current facility-administere d medications for this visit. ALLERGIES: Patient has no known allergies. PAST MEDICAL HISTORY Diagnosis Date Asthma (HCC) Elevated fasting glucose HLD (hyperlipidemia) RICARDO (obstructive sleep apnea) Pain in back Sleep apnea PAST SURGICAL HISTORY Procedure Laterality Date APPENDECTOMY 1978 FRACTURE SURGERY Left Left Arm/ Closed reduction SINUS SURGERY HX x 2 FAMILY HISTORY Problem Relation Age of Onset Coronary Artery Disease Father other (high cholesterolemia) Father other (suicide) Sister Prostate Cancer Paternal Grandmother Social History Tobacco Use Smoking status: Never Substance Use Topics Alcohol use: Yes REVIEW OF SYMPTOMS: REVIEW OF SYSTEMS: General: The patient denies fatigue, denies weight loss, denies weight gain, denies feeling hot, and feelings of cold. Eyes: The patient denies glaucoma, denies eye injury/surgery, + glasses or contacts. Ear/Nose/Throat: The patient + allergies, denies hayfever, denies ear infections, and denies bloody noses. Cardiovascular: The patient denies chest pain, denies heart disease, denies high blood pressure, denies high cholesterol, and denies poor circulation. Respiratory: The patient denies tuberculosis, denies pneumonia, denies frequent cough, denies shortness of breath, and denies coughing up blood. Gastrointestinal: The patient denies difficulty swallowing, denies acid reflux, denies ulcers, denies jaundice/hepatitis, denies gallbladder problems, denies vomiting, denies black or tarry stools, denies hemorrhoids, denies bleeding from rectum, denies diverticulitis, denies constipation, denies diarrhea, denies loss of stool control, and denies hernias. Kidney/Bladder: The patient denies kidney stones, denies urine infections, and denies bloody urine. Skin: The patient denies a history of skin cancer, denies bleeding/changing moles, and denies a history of skin rash. Neurologic: The patient denies a history of epilepsy/convulsions , denies headaches, denies head/spinal injuries, and denies stroke/TIA. Psychiatric: The patient denies psychiatric medications, denies depression, and denies voices. Endocrine: The patient denies thyroid disorders, denies diabetes, and denies hormonal problems. Hematologic: The patient denies a history of bruising, denies bleeding, and denies anemia. Infections: The patient denies a history of measles and mumps, denies rheumatic fever, and denies sexually transmitted diseases. Musculoskeletal: The patient denies back pain/injury, denies back problems, denies sciatica, denies knee/foot trouble, denies arthritis, or denies gout. PHYSICAL EXAMINATION: General: The patient is 64 year old, male well nourished, well hydrated in no acute distress. The patient is oriented to time, tank (more content not included)... Normal [facility] Basophil percentageOrdered B y: Dr. Boyd on 09-11-2022 Cholesterol [Mass/Vol] 273 mg/dL <200 [facility] Comment on above: <200 mg/dL Desirable 200-240 mg/dL Borderline >240 mg/dL High Risk Triglyceride [Mass/Vol] 135 mg/dL <199 [facility] Comment on above: The drugs N-Acetylcy steine and Metamizole may falsely depress this assay.Serum Triglycerides Reference Interval Normal <150 mg/dL Borderline high 150 - 199 mg/dL High 200 - 499 mg/dL Very High > or = 500 mg/dL Laboratory - Chemistry and C hemistry - challengeOrdered By: Dr. Boyd on 09-11-2022 ALT [Catalytic activity/Vol] 37 U/L 16-61 [facility] Serum or plasma cholesterol in HDL measurement (mass/volume)Ordered By: Dr. Boyd on 09-11-2022 Cholesterol in HDL [Mass/Vol] 62 mg/dL >40 [facility] Comment on above: The drugs N-Acetylcy steine and Metamizole may falsely depress this assay. Reference Range HDL <40 mg/dL Low HDL Cholesterol HDL >or= 60 mg/dL High HDL Cholesterol Serum or plasma cholesterol in VLDL measurement (mass/volume)Ordered By: Dr. Boyd on 09-11-2022 Cholesterol in VLDL [Mass/Vol] 27 mg/dL 5-40 [facility] Serum or plasma low density lipoprotein (LDL) cholesterol measurement (mass/volume)Ordered By: Dr. Boyd on 09-11-2022 Cholesterol in LDL [Mass/Vol] 184 mg/dL 0-130 [facility] Thin prep Papanicolaou smear with manual screeningOrdered By: Dr. Boyd on 09-11-2022 Thin prep Papanicolaou smear with manual screening 22 U/L 15-37 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 You need speech therapy as part of your treatment. We will help you to schedule your speech appointment after your visit or you can call Speech Therapy Scheduling at [phone]. Please follow up pending the outcome of speech therapy. Welcome to Dr. Cochran?s clinic. We are here to assist you through your ENT care at [facility]. Dr. Cochran is an ENT surgeon who specializes in voice, airway and swallowing issues. This means that she specializes in taking care of patients with complex voice, airway and swallowing problems. Dr. Cochran's office number is [phone]. Please use this number to contact her and her care team regardless of which office you use to access care. This number is the most direct way to communicate with all the members of the care team. Dr. Cochran?s x ray consultant answers the office phone from 9am-4pm Sun-Sun. Call [phone] and push [phone]. She can help you with scheduling of appointments, general questions and information. You may need to leave a message if she is helping another patient. In this case, someone from the team will call you back the same day if you leave your message before 3pm, or the next business morning. Dr. Cochran?s nurse and can be reached by calling [phone]. We make every effort to return phone calls the same day. If you are in need of urgent assistance after hours, please call [phone] and ask for ENT labor conciliator. Dr. Cochran works closely with speech therapists as they work together to help solve your issues with speech and swallowing. You may see a speech therapist during your appointment if Dr. Cochran feels this is needed. If you need to reach speech therapy to talk with a therapist or to schedule an appointment, please call [phone]. Others who may be included in your care are dieticians, social workers, audiologists, neurologists, and physical therapists. Dr. Cochran will provide these referrals as needed. Please let her know if you would like to request a specific referral. For your convenience, Dr. Cochran sees patients at different [facility] locations including the [facility], and [facility] at the main campus of [facility]. While we try to make your appointments as convenient as possible, occasionally a visit to another location may be necessary to provide the best care for you. Dr. Cochran makes every effort to run on time for your appointments. Therefore, if you are more than 30 minutes late unrelated to a scan or another appointment such therapy or audiology, your appointment will need to be rescheduled to another day. We appreciate your understanding. We look forward to working with you to meet your healthcare goals. By signing my name below, I, Stephenie Ravi Breann, attest that this documentation has been prepared under the direction and in the presence of Dr. Elizabeth Cochran MD. 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 Working with Natalie in 2-3 sessions to rebalance the vocal cords. If there are no improvement in his voice, we will consider vocal cord injections to improve vocal cord closure. The patient?s questions were answered. Chief Complaint Voice History of Present IllnessREGINALD BRADEN is a 61 year male referred to me today by Dr. Simmons for dysphonia. He reports a 10-year history of dysphonia and hoarseness that was initially on and off until 2017 following a severe asthma attack. Today, his voice is stable. He did not receive voice therapy. Since that time he has noticed that his voice has been persistently hoarse. He recently underwent sinus surgery and septoplasty earlier this year and attempt to reduce his postnasal drainage. He is currently using nasal saline continues to have postnasal drainage. Denies heartburn or reflux-like symptoms. He has been trialed on omeprazole for the past year with no improvement to his voice. 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 He reports that his voice worsens as the day goes on. No voice recovery over the weekend as he is very social. Symptoms worsen with voice use, and appear to be worse in the morning. He endorses throat clearing, but this is improved sinc (more content not included)... 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 Short term goals: Patient will increase vocal wellness and decrease phono trauma in adherence with clinician prescribed vocal hygiene and wellness program per patient report 80% of his/her day. Patient will increase ability to produce voice without tension within 5 minute conversational task x 80% accuracy as judged by clinician observation and/or patient report. Patient will demonstrate independent use of voice techniques x 80% accuracy. Patient will increase the balance of the respiratory/laryngea l musculature x 80% accuracy. Recommendations For Therapeutic Interventions: speech/voice exercises and vocal hygiene program Patient/family understands and agrees with goals/plan. Potential for improvement: good Factors affecting prognosis: none Discussed plan of care with: patient, caregiver/family and physician Discussed risks/benefits with patient/caregiver. Patient/caregiver agreeable with plan of care. Plan of care was developed with input and agreement by the patient. Assessment Voice assessment: Patient presents with dysphonia 2/2 a diagnosis of bilateral vocal cord paresis and compensatory MTD. Patient appears to be an excellent candidate for therapy which will target vocal wellness and voice rebalancing. Voice quality based on the GRBAS scale: 0=absent; 1=mild; 2=moderate; 3=severe Grade: 1-2 Roughness: 1-2 Breathiness: 0 Asthenia: 0 Strain: 1-2 Contributing Factors: supraglottic compression , inadequate breath support , decreased neuromuscular control of speech/swallow muscles , habitual behaviors that misuse/abuse the voice and abnormal vibratory mechanisms due to physical changes NOMS Score: mild-moderate: level 5 Treatment recommendations: treatment indicated (see goals below) Adult Risk Screening There are no spiritual/cultural practices/values/nee ds that are important to know Initial Fall Risk Screening: REGINALD has not fallen in the last 6 months. Pain Scale: On a scale of 0 to 10, the patient rates the pain at 0. Domestic Violence Screen: Does not feel threatened or abused physically, emotionally or sexually. Do you feel UNSAFE? The patient feels safe in the home. Depression/Suicide Screening: During the past 2 weeks, the patient has not felt down, depressed or hopeless. During the past 2 weeks, the patient has not felt little interest or pleasure in doing things. He does not have a risk of suicide. He has not had thoughts of harming others. Medrano Learner(s) are identified by the patient as person(s) most likely to participate in providing care, such as managing medications or taking them to doctors? appointments. Primary Language for learning: Burmese. Insurance Insurance reviewed Visit number: 1 Onset Date: 2021 Subjective Living Environment: home - patient lives with family. Patient arrival: accompanied by spouse Voice evaluation: Reason for Referral: REGINALD BRADEN is a 61 year male referred to [facility] by Dr. Simmons for dysphonia. The patient reports a 10 year history of hoarseness that was initially on and off until 2017 following a severe asthma attack. Today, his voice is stable. He did not receive voice therapy. Since that time he has noticed that his voice has been persistently hoarse. He recently underwent sinus surgery and septoplasty earlier this year and attempt to reduce his postnasal drainage. He is currently using nasal saline and continues to have postnasal drainage but mild. Denies heartburn or reflux-like symptoms. He has been trialed on omeprazole for the past year with no improvement to his voice. 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 He reports that his voice worsens as the day goes on. No voice recovery over the weekend as he is very social. Symptoms worsen with voice use, and appear to be worse in the morning. He endorses throat clearing, but this is improved since his sinus surgery and no coughing. His asthma is well controlled. No heartburn or indigestion. He is currently on PPIs and reports GERD being well controlled. He has age related hearing loss, but this is not worsened. PMH: asthma Social: Tobacco - none Referred by: Dr. Cochran Voice Use Inventory: Voice misuse/abuse: yes excessive talking hyperphonia throat clear Exposure to noise: no Exposure to respiratory irritants: no Consistent use of singing voice: no Occupation relies on speaking voice: yes Objective PERCEPTUAL VOICE FEATURES Intonation: WFL Loudness: WFL Nasal resonance: WFL Additional vocal charact (more content not included)... Normal [facility] Tobacco Screening.on 022 Adult depression screening assessment No [facility] Work Phone: Fall risk assessment a) No falls within the last year [facility]tolaryng[facility] Work Phone: Tobacco use status CPHS b) No M [facility] Work Phone: Absolute immature granulocyt e counton 12-29-2021 Immature granulocytes (Bld) [#/Vol] 0.1 10*3/uL 0.0-0.1 [facility] Work Phone: Absolute lymphocyte counton 12-29-2021 Lymphocytes Auto (Unsp spec) [#/Vol] 1.9 10*3/uL 0.7-3.1 [facility] Work Phone: [phone] Basophil percentageon 2021 Monocytes (Bld) [#/Vol] 0.6 10*3/uL 0.1-0.9 [facility] Work Phone: [phone] Neutrophils (Bld) [#/Vol] 5.2 10*3/uL 1.4-7.0 [facility] Work Phone: [phone] Neutrophils/100 WBC (Bld) 62 % Not Estab. [facility] Work Phone: [phone] WBC (Bld) [#/Vol] 8.3 10*3/uL 3.4-10.8 [facility] Work Phone: [phone] Basophils/100 WBC Auto (Bld) on 12-29-2021 Basophils/100 WBC (Bld) 1 % Not Estab. [facility] Work Phone: [phone] Blood basophils count (numbe r/volume)on 12-29-2021 Basophils (Bld) [#/Vol] 0.1 10*3/uL 0.0-0.2 [facility] Work Phone: [phone] Blood eosinophils count (num sara/volume)on 12-29-2021 Eosinophils (Bld) [#/Vol] 0.4 10*3/uL 0.0-0.4 [facility] Work Phone: Blood hematocrit (volume fra ction)on 12-29-2021 Hematocrit (Bld) [Volume fraction] 45.4 % 37.5-51.0 [facility] Work Phone: Blood hemoglobin measurement (mass/volume)on 12-29-2021 Hemoglobin (Bld) [Mass/Vol] 14.7 g/dL 13.0-17.7 [facility] Work Phone: Blood immature cells/100 darrell kocyteson 12-29-2021 Immature cells/100 WBC (Bld) TNP [facility] Work Phone: Comment on above: Test not performed Blood immature granulocytes/ 100 leukocyteson 12-29-2021 Immature granulocytes/100 WBC (Bld) 1 % Not Estab. [facility] Work Phone: Blood platelet mean volumeon 12-29-2021 Platelet mean volume (Bld) [Entitic vol] 9.9 fL 6.2-12.0 [facility] Work Phone: CD3+CD8+ (T8 suppressor cell s) cells/100 cells (Bld)on 12-29-2021 CD3+CD8+ (T8 suppressor cells) cells (Bld) [#/Vol] 504 /uL 109-897 [facility] Work Phone: Count of whole blood cells p ositive for CD3 and CD4 antigens (number/volume)on 12-29-2021 CD3+CD4+ (T4 helper) cells (Bld) [#/Vol] 990 /uL [phone] [facility] Work Phone: Eosinophils/100 WBC Auto (Bl d)on 12-29-2021 Eosinophils/100 WBC (Bld) 5 % Not Estab. [facility] Work Phone: Erythrocyte distribution wid th ratioon 12-29-2021 Erythrocyte distribution width (RBC) [Ratio] 12.5 % 11.6-15.4 [facility] Work Phone: Interpretation of morphologi c examination of blood (narrative result)on 12-29-2021 Morphology Ray (Bld) [Interp] TNP [facility] Work Phone: Comment on above: Test not performed Laboratory - Hematology and Cell countson 12-29-2021 Erythrocyte distribution width (RBC) [Entitic vol] 42.0 fL 35.1-43.9 [facility] Work Phone: Erythrocyte distribution width (RBC) [Ratio] 12.7 % 11.6-14.6 [facility] Work Phone: Lymphocytes/100 WBC Auto (Bl d)on 12-29-2021 Lymphocytes/100 WBC (Bld) 23 % Not Estab. [facility] Work Phone: MCHC Auto (RBC) [Mass/Vol]on 12-29-2021 MCHC (RBC) [Mass/Vol] 32.4 g/dL 31.5-35.7 [facility] Work Phone: Percentage of whole blood ce lls positive for CD3 and CD4 antigenson 12-29-2021 CD3+CD4+ (T4 helper) cells/100 cells (Bld) 52.1 % 30.8-58.5 [facility] Work Phone: Percentage of whole blood ce lls positive for CD3 and CD8 antigenson 12-29-2021 CD3+CD8+ (T8 suppressor cells) cells/100 cells (Bld) 26.5 % 12.0-35.5 [facility] Work Phone: Platelets bldon 12-29-2021 Platelets (Bld) [#/Vol] 260 10*3/uL 150-450 [facility] Work Phone: RBC Auto (Bld) [#/Vol]on RBC (Bld) [#/Vol] 5.07 10*6/uL 4.14-5.80 [facility] Work Phone: Ratio of whole blood cells p ositive for CD3 and CD4 antigens to cells positive for CDon 12-29-2021 CD3+CD4+ (T4 helper) cells/CD3+CD8+ (T8 suppressor cells) cells (Bld) [# ratio] 1.97 % 0.92-3.72 [facility] Work Phone: Serum or plasma IgA measurem ent (mass/volume)on 12-29-2021 IgA [Mass/Vol] 157 mg/dL 61-437 [facility] Work Phone: Serum or plasma IgG measurem ent (mass/volume)on 12-29-2021 IgG [Mass/Vol] 1124 mg/dL [phone] [facility] Work Phone: Serum or plasma IgM measurem ent (mass/volume)on 12-29-2021 IgM [Mass/Vol] 78 mg/dL 20-172 [facility] Work Phone: Comment on above: Performed at: [place] [id number] Director: Neeraj Rene PhD, Phone: [phone] Thin prep Papanicolaou smear with manual screeningon 12-29-2021 Thin prep Papanicolaou smear with manual screening 90 fL 79-97 [facility] Work Phone: Thin prep Papanicolaou smear with manual screening 29.0 pg 26.6-33.0 [facility] Work Phone: Thin prep Papanicolaou smear with manual screening 8 % Not Estab. [facility] Work Phone: Basophil percentageon 2021 Cholesterol [Mass/Vol] 233 mg/dL <200 [facility] Work Phone: Comment on above: <200 mg/dL Desirable 200-240 mg/dL Borderline >240 mg/dL High Risk Triglyceride [Mass/Vol] 124 mg/dL [facility] Work Phone: Comment on above: The drugs N-Acetylcy steine and Metamizole may falsely depress this assay.Serum Triglycerides Reference Interval Normal <150 mg/dL Borderline high 150 - 199 mg/dL High 200 - 499 mg/dL Very High > or = 500 mg/dL Laboratory - Chemistry and C hemistry - challengeon 09-09-2021 ALT [Catalytic activity/Vol] 36 U/L 16-61 [facility] Work Phone: No Panel Informationon 09-09 Prostate Specific Antigen Screen 2.42 ng/mL 0.00-4.00 [facility] Work Phone: Comment on above: This test was perfor med using the TPSA assay method for the[facility] system. Values obtained with differentassay methods cannot be used interchangably.When changing PSA assays in the course of monitoring apatient, additional sequential testing should be carriedout to confirm baseline values. Serum or plasma cholesterol in HDL measurement (mass/volume)on 09-09-2021 Cholesterol in HDL [Mass/Vol] 53 mg/dL [facility] Work Phone: Comment on above: The drugs N-Acetylcy steine and Metamizole may falsely depress this assay. Reference Range HDL <40 mg/dL Low HDL Cholesterol HDL >or= 60 mg/dL High HDL Cholesterol Serum or plasma cholesterol in VLDL measurement (mass/volume)on 09-09-2021 Cholesterol in VLDL [Mass/Vol] 25 mg/dL 5-40 [facility] Work Phone: Serum or plasma low density lipoprotein (LDL) cholesterol measurement (mass/volume)on 09-09-2021 Cholesterol in LDL [Mass/Vol] 155 mg/dL 0-130 [facility] Work Phone: Thin prep Papanicolaou smear with manual screeningon 09-09-2021 Thin prep Papanicolaou smear with manual screening 25 U/L 15-37 [facility] Work Phone: Gram stain for investigation of transfusion reaction Microscopic observation Gram stain Nom (Unsp spec) [facility] Work Phone: No Panel Information Nasopharyngeal Culture Haemophilus influenzae [facility] Work Phone: Vital Signs Date Time Vital Sign Value Performing Clinician Faci lity 06-12-2025 13:02-0400 Body height 182.[address] Verona Hi MD Work Phone: [facility] 06-12-2025 13:02-0400 Body mass index (BMI) [Ratio] 25.4 kg/m2 Dr. Verona Hi MD Work Phone: [phone] [place] [address] 06-12-2025 13:02-0400 Body weight 84.[address] Verona Hi MD Work Phone: [phone] [place] [address] 06-12-2025 13:02-0400 Diastolic blood pressure 80 mm[Hg] Dr. Verona Hi MD Work Phone: [phone] [place] [address] 06-12-2025 13:02-0400 Heart rate 59 /min Dr. Verona Hi MD Work Phone: [phone] [place] [address] 06-12-2025 13:02-0400 SaO2% (BldA) [Mass fraction] 97 % Dr. Verona Hi MD Work Phone: [phone] [place] [address] 06-12-2025 13:02-0400 Systolic blood pressure 148 mm[Hg] Dr. Verona Hi MD Work Phone: [phone] [place] [address] 06-10-2025 08:46-0400 Body mass index (BMI) [Ratio] 25 kg/m2 Dr. Verona Hi MD Work Phone: 5(235)[phone] [place] [address] 06-10-2025 08:46-0400 Body temperature 97.4 [degF] Dr. Verona Hi MD Work Phone: [phone](106)[phone] [place] [address] 06-10-2025 08:46-0400 Body weight 83.[address] Verona Hi MD Work Phone: 6(243)[phone] [place] [address] 06-10-2025 08:46-0400 Diastolic blood pressure 88 mm[Hg] Dr. Verona Hi MD Work Phone: [phone] [place] [address] 06-10-2025 08:46-0400 Heart rate 56 /min Dr. Verona Hi MD Work Phone: [phone] [place] [address] 06-10-2025 08:46-0400 Respiratory rate 18 /min Dr. Verona Hi MD Work Phone: [facility] 06-10-2025 08:46-0400 SaO2% (BldA) [Mass fraction] 98 % Dr. Verona Hi MD Work Phone: [facility] 06-10-2025 08:46-0400 Systolic blood pressure 150 mm[Hg] Dr. Verona Hi MD Work Phone: [facility] 03-26-2025 12:05-0400 Diastolic blood pressure 64 mm[Hg] Hubert Moreno MD Work Phone: [facility] 03-26-2025 12:05-0400 Heart rate 71 /min Hubert Moreno MD Work Phone: [facility] 03-26-2025 12:05-0400 Respiratory rate 16 /min Hubert Moreno MD Work Phone: [facility] 03-26-2025 12:05-0400 SaO2% (BldA) [Mass fraction] 96 % Hubert Moreno MD Work Phone: [facility] 03-26-2025 12:05-0400 Systolic blood pressure 112 mm[Hg] Hubert Moreno MD Work Phone: [facility] 03-26-2025 10:52-0400 Body mass index (BMI) [Ratio] 24.67 kg/m2 Hubert Moreno MD Work Phone: [facility] 03-26-2025 10:52-0400 Body temperature 97.7 [degF] Hubert Moreno MD Work Phone: [facility] 03-26-2025 10:52-0400 Body weight 84.8 kg Hubert Moreno MD Work Phone: [facility] 02-26-2025 15:23-0400 Body height 185.4 cm Chantal Alves APRN.AURICULOTHERAPIST Work Phone: [facility] 02-26-2025 15:23-0400 Body mass index (BMI) [Ratio] 24.67 kg/m2 Chantal Darren MARKETING COMMUNICATIONS ASSOCIATE.AURICULOTHERAPIST Work Phone: [facility] 02-26-2025 15:23-0400 Body weight 84.82 kg Chantal Alves MARKETING COMMUNICATIONS ASSOCIATE.AURICULOTHERAPIST Work Phone: [facility] 02-26-2025 15:23-0400 Diastolic blood pressure 78 mm[Hg] Chantal Hurdir MARKETING COMMUNICATIONS ASSOCIATE.AURICULOTHERAPIST Work Phone: [facility] 02-26-2025 15:23-0400 Heart rate 55 /min Chantal Hurdir MARKETING COMMUNICATIONS ASSOCIATE.AURICULOTHERAPIST Work Phone: [facility] 02-26-2025 15:23-0400 SaO2% (BldA) [Mass fraction] 98 % Chantal Hurdir MARKETING COMMUNICATIONS ASSOCIATE.AURICULOTHERAPIST Work Phone: [facility] 02-26-2025 15:23-0400 Systolic blood pressure 137 mm[Hg] Chantal Hurdir MARKETING COMMUNICATIONS ASSOCIATE.AURICULOTHERAPIST Work Phone: [facility] 04-03-2022 13:08-0400 Body height 177.8 cm Keke Lepeiff Work Phone: [facility] Work Phone: 04-03-2022 13:08-0400 Body mass index (BMI) [Ratio] 22.67 kg/m2 Keke Lepeiff Work Phone: [facility] Work Phone: 04-03-2022 13:08-0400 Body surface area Derived from formula 1.89 m2 Keke Villelalliff Work Phone: [facility] Work Phone: 04-03-2022 13:08-0400 Body temperature 98.1 [degF] Keke Villelalliff Work Phone: [facility] Work Phone: 04-03-2022 13:08-0400 Body weight 71.67 kg Keke Villelalliff [facility] Phone[facility] Work Phone: 02-21-2022 06:02-0400 Body height 182.[address] Keke Boyd Work Phone: [facility] Work Phone: 02-21-2022 06:02-0400 Body mass index (BMI) [Ratio] 25.9 kg/m2 Dr. Keke Boyd Work Phone: [facility] Work Phone: 02-21-2022 06:02-0400 Body temperature 98.7 [degF] Dr. Keke Boyd Work Phone: [facility] Work Phone: 02-21-2022 06:02-0400 Body weight 86.[address] Keke Boyd Work Phone: [facility] Work Phone: 02-21-2022 06:02-0400 Diastolic blood pressure 77 mm[Hg] Dr. Keke Boyd Work Phone: [facility] Work Phone: 02-21-2022 06:02-0400 Heart rate 79 /min Dr. Keke Boyd Work Phone: [facility] Work Phone: 02-21-2022 06:02-0400 Respiratory rate 17 /min Dr. Keke Boyd Work Phone: [facility] Work Phone: 02-21-2022 06:02-0400 SaO2% (BldA) [Mass fraction] 97 % Dr. Keke Byod Work Phone: [facility] Work Phone: 02-21-2022 06:02-0400 Systolic blood pressure 121 mm[Hg] Dr. Keke Boyd Work Phone: [facility] Work Phone: Encounters Encounter Date Encounter Type Care Provider Facility Start: 07-09-2025 End: 07-09-2025 ambulatory VERONA HI Facility:[facility] Start: 06-13-2025 End: 06-13-2025 Patient encounter procedure Jermain Solis MD -Laboratory Work Phone: Start: 06-12-2025 End: 06-12-[address] Jermain Solis MD -[facility] Work Phone: Start: 06-12-2025 End: 06-13-[address] Verona Hi MD Work Phone: -[facility] Start: 06-10-2025 End: 06-10-[address] Amol Chatman DO -[facility] Work Phone: Start: 06-10-2025 End: 06-10-[address] Verona Hi MD Work Phone: -[facility] Start: 06-09-2025 End: 06-09-[address] Verona Hi MD -[facility] [place] Work Phone: Start: 06-09-2025 End: 06-09-2025 ambulatory Verona Hi Facility:[facility] Start: 03-26-2025 ambulatory HUBERT Morelos ty:[facility] Start: 03-26-2025 End: 03-26-2025 Subsequent hospital visit by physician Hubert Moreno MD Work Phone: Ambulatory Surgery Comment on above: Screen for colon can cer [Z12.11] Start: 03-19-2025 End: 03-19-2025 Admission to same day surgery center Hubert Moreno MD Work Phone: Ambulatory Surgery Comment on above: bowel prep tips Start: 03-19-2025 End: 03-19-2025 E-mail encounter from caregiver Hubert Moreno MD Work Phone: Ambulatory Surgery Start: 03-04-2025 End: 03-04-[address] Verona Hi MD Work Phone: -Laboratory Start: 03-04-2025 End: 03-04-2025 Patient encounter procedure Boris Salinas SHOE STAMPER-C -Laboratory Work Phone: Start: 03-04-2025 End: 03-04-2025 ambulatory Boris Salinas SHOE STAMPER Facility:[facility] Start: 02-26-2025 End: 02-26-2025 Patient encounter procedure Chantalyamilex Alves MARKETING COMMUNICATIONS ASSOCIATE.AURICULOTHERAPIST Work Phone: General Surgery Comment on above: Screen for colon can cer (Primary Dx) Start: 02-26-2025 End: 02-26-2025 ambulatory CHANTAL BLAIR Facility:[facility] Start: 02-25-2025 End: 02-25-2025 Chart abstracting Chantal Hurdir MARKETING COMMUNICATIONS ASSOCIATE.AURICULOTHERAPIST Work Phone: General Surgery Start: 09-11-2022 End: 09-11-[address] [facility] Work Phone: Start: 09-11-2022 End: 09-11-[address] [facility] Start: 06-02-[address] Keke Boyd Facility:[id number] Start: 06-02-2022 Patient encounter procedure [facility] Boyd [facility] [address] [place] Work Phone: Start: 05-12-[address] Keke Boyd Facility:[id number] Start: 05-12-2022 Patient encounter procedure [facility]ke Boyd [facility] [address] [place] Work Phone: Start: 05-04-2022 Patient encounter procedure [facility]ke Boyd [facility] [address] [place] Work Phone: Start: 05-04-[address] Keke Boyd Facility:[id number] Start: 04-20-2022 Patient encounter procedure Keke Boyd Work Phone: [facility]Eesvgkpfdpoadr-Cfrzkk n [facility] Work Phone: Start: 04-20-[address] Keke Boyd Facility:[facility] Start: 04-03-[address] Keke Boyd Facility:[id number] Start: 04-03-2022 Office consultation new/estab patient 40 min Keke Boyd Work Phone: BB-Maqdjyhbhfjyzy-Mgiwtw n Voice Work Phone: Start: 04-03-2022 Patient encounter procedure Keke Abril Oliver Work Phone: YL[facility]Blmeopos[facility]hiq[facility]ug n Work Phone: Start: 04-03-2022 ambulatory Elizabeth Damon y:[id number] Start: 03-13-2022 End: 03-13-[address] Keke Boyd Work Phone: [facility], Specimen Start: 02-21-2022 End: 02-21-[address] Keke Boyd Work Phone: [facility]-Pulmonary Medicine [facility] Start: 12-29-2021 End: 12-29-[address] [facility] Start: 12-26-2021 End: 12-26-[address] [facility]-Cat Scan, [facility] Start: 09-09-2021 End: 09-09-[address] [facility], [facility] Procedures Date Procedure Procedure Detail Performing Clinician Start: 06-09-2025 Radex spine thoracic [address] Verona Hi MD Work Phone: Start: 06-09-2025 X-ray of lumbosacral spine Dr. Verona Hi MD Work Phone: Start: 03-26-2025 Colonoscopy flx dx w/collj spec when pfrmd Chantal Alves MARKETING COMMUNICATIONS ASSOCIATE.AURICULOTHERAPIST Work Phone: Start: 03-26-2025 Colonoscopy Hubert torres MD Work Phone: Start: 03-04-2025 Prostate specific an tigen measurement Dr. Verona Hi MD Work Phone: Comment on above: This test was perfor med using the [employer] tPSA method. Measured values of a patient sample can vary depending on the testing procedure used. PSA values determined on patient samples by different testing procedures cannot be used interchangeably. If there is a change in PSA assays while monitoring therapy, sequential testing should be performed to confirm baseline values. Start: 12-26-2021 CT of face H/O: surgery History of surge ry on arm Comment on above: childhood History of appendectomy Hx of appendectom y Comment on above: [address] Investigation of transfusion reaction Dr. Keke Boyd Work Phone: Nasopharyngeal Culture Dr. Zahira Boyd Work Phone: Plan of Treatment Date Care Activity Detail Author Start: 2035 RSV Vaccine (1 - 1-d ose 75+ series) RSV Vaccine (1 - 1-dose 75+ series) [facility] Start: 02-18-2035 Urine microalbumin profile DTaP,Tdap,Td Vaccine (3 - Td or Tdap) [facility] Start: 03-26-2026 Screening for malign ant neoplasm of colon [facility] Start: 06-09-2025 X-ray of lumbosacral spine L/S Spine Min [address] [facility] Start: 05-04-2025 Influenza vaccination [facility] Start: 03-26-2025 End: 03-26-2025 Patient encounter procedure 03/26/2025 12:15 PM EDT Appointment Ambulatory Surgery [address] [place] [address] Hubert Moreno MD [address] [place] [address] colonoscopy Ambulatory Surgery Comment on above: colonoscopy Start: 02-26-2025 End: 02-26-2025 Patient encounter procedure 02/26/2025 3:00 PM EDT Office Visit General Surgery [address] [place] [address] Chantal Alves, ERIN.AURICULOTHERAPIST [address] [place] [address] CONSULT: Colonoscopy. Never. Update PCP. [facility] General Surgery Comment on above: CONSULT: Colonoscopy . Never. Update PCP. [facility] Start: 05-04-2024 Covid-19 Vaccine () Covid-19 Vaccine () [facility] Start: 05-04-2024 Covid-19 Vaccine () Covid-19 Vaccine () [facility] Start: 04-14-2024 Shingrix Vaccine (2 of 2) Shingrix Vaccine (2 of 2) [facility] Start: 06-02-2022 VIRFUVHOME, Provider : Natalie Alexander, Status: Pen, Time: 10:30 AM VIRFUVHOME, Provider: Natalie Alexander, Status: Pen, Time: 10:30 AM [facility] [address] [place] Work Phone: Start: 05-04-2022 VIRFUVHOME, Provider : Natalie Alexander, Status: Pen, Time: 1:00 PM VIRFUVHOME, Provider: Natalie Alexander, Status: Pen, Time: 1:00 PM NM-Qkdghycfhsqhvd-Kkj dman Voice Work Phone: Start: 04-26-2022 VIRFUVHOME, Provider : Natalie Alexander, Status: Pen, Time: 9:00 AM VIRFUVHOME, Provider: Natalie Alexander, Status: Pen, Time: 9:00 AM JY-Gruhmzmmeicrvn-Gsu dman Work Phone: Start: 04-20-2022 VIRFUVKYLEE, Provider : Natalie Alexander, Status: Pen, Time: 1:00 PM VIRFUVHOME, Provider: Natalie Alexander, Status: Pen, Time: 1:00 PM RK-Htnkisvuxiipip-Rlm dman Work Phone: Start: 2010 Pneumococcal Vaccine : 50+ (1 of 1 - PCV) Pneumococcal Vaccine: 50+ (1 of 1 - PCV) [facility] Start: 2010 Shingrix Vaccine (1 of 2) Shingrix Vaccine (1 of 2) [facility] Start: 2005 Diabetes Screening Diabetes Screenin g [facility] Start: 2005 Prostate specific antigen measurement Prostate Cancer Screening Discussion [facility] Start: 2005 Screening for malign ant neoplasm of colon [facility] Start: 1995 Lipid panel Lipid Screening [facility] Start: 1979 Urine microalbumin profile DTaP,Tdap,Td Vaccine (1 - Tdap) [facility] Start: 1978 Anxiety Screening Anxiety Screening [facility] Start: 1978 Depression Screening Depression Scre ening [facility] Start: 1978 Hepatitis C screening Hepatitis C Sc reening [facility] Start: 1978 HIV screening HIV Screening [facility] End: 02-26-2026 Screening colonoscopy COLONOSCOPY SCREENING Endoscopy Routine Screen for colon cancer 1 Occurrences starting 02/26/2025 until 02/26/2026 [facility] Work Phone: Comment on above: 1 Occurrences starti ng 02/26/2025 until 02/26/2026 Immunizations Immunization Date Immunization Notes Care Provider Logan peña 07-25-2024 influenza virus vaccine, unspecified formulation Hubert Moreno MD Work Phone: [facility] 05-16-2024 influenza, injectabl e, quadrivalent, preservative free Dr. Verona Hi MD Work Phone: [facility] Payers Date Payer Category Payer Medicare [id number] 2025 Self-pay [id number] 2025 Medicare [id number] 2025 Private Health Insurance [id number] 2024 Private Health Insurance [facility] CHO ICE PLUS [id number] 2024 Private Health Insurance [id number] 2021 Unknown [id number] 1960 Unknown [id number] 356 1960 Unknown [id number] 356 1960 Unknown [id number] 356 1960 Unknown [id number] 356 1960 Unknown [id number] 356 1960 Unknown [id number] 356 Self-pay [id number] Unknown [id number] Unknown ANTHEM Unknown [id number] 462 Unknown [id number] Unknown [id number] 462 Unknown [id number] Unknown [id number] 462 Social History Date Type Detail Facility Start: 08-24-2021 End: 02-21-2022 Tobacco smoking status NHIS Unknown if ever smoked [facility] Start: 1960 Sex Assigned At Male [facility] Start: 02-25-2025 End: 03-26-2025 Non-smoker Non-smoker IU-Raepwruuwcntlq-Lx id man Work Phone: Start: 02-21-2023 End: 02-25-2025 Tobacco smoking status NHIS Never smoked tobacco [facility] Start: 02-25-2025 End: 03-26-2025 Alcoholic beverage intake Current drinker of alcohol (finding) [facility] Start: 02-25-2025 End: 03-26-[address] [facility] Start: 1960 Sex assigned at Not on file [facility] Start: 03-26-2025 Tobacco use and exposure Smokeless tobacco non-user [facility] Start: 03-26-2025 Alcohol Comment 1 beer daily [facility] Clinical Notes 04-20-2022 to 06-12-2025 Note Date & Type Note Facility 06-12-2025 Progress note [facility] 06-12-2025 Progress note Note Date/Time June 12, 2025 2:15pm [facility] [address] [place] [address] OFFICE VISIT Date of Service: 06/12/25 MR#: [id number] Acct: [id number] Name: REGINALD BRADEN Rep #: [id number] : 1960 Provider: Dr. Jermain Solis MD Age/Sex: 64/M Location: [facility] Status: Signed Intake Vital Signs 05/16/24 10:59 06/10/25 08:46 06/12/25 13:02 Height 6 ft 6 ft 6 ft Weight: 187 lb 4 oz BMI 25.4 BP 148/80 H Blood Pressure Location Rt brachial Position Sitting Pulse 59 L Pulse Source Monitor Pulse Oximetry (%) 97 Oxygen Delivery Method room air Intake Visit Reasons: 16 M FU Chief Complaint: Hyperlipidemia/pre-diabetes Is patient in pain?: No Allergies No Known Allergies Allergy (Verified 06/12/25 13:07) Medications ?Medication ?Instructions ?Recorded ?Confirmed ?Type allergy shots IM 10/09/22 06/12/25 History aspirin 81 mg tablet,delayed 81 mg PO DAILY 02/25/24 1 History release (Adult Low Dose Aspirin) omeprazole 40 mg capsule,delayed 40 mg PO QDAY 4 06/12/25 History release albuterol sulfate 90 mcg/actuation 2 puff inhalation Q 4H PRN 05/16/24 06/12/25 Rx aerosol inhaler shortness of breath or wheez ing #18 grams FreeStyle Daisy 3 Plus Sensor #6 ea 09/25/24 06/10/25 Rx (blood-glucose sensor) rosuvastatin 40 mg tablet 40 mg PO DAILY #90 tabs 03/0506/12/25 Rx ezetimibe 10 mg tablet 10 mg PO DAILY #90 tabs 10/2806/12/25 Rx fluticasone furoate 200 1 inh inhalation QDAY #1 ea 06/10/25 06/12/25 Rx mcg/actuation blister powder for inhalation (Arnuity Ellipta) prednisone 20 mg tablet 20 mg PO BID 06/10/25 History PFSH Medical History (Updated 06/15/25 @ 07:[address] Jermain Solis MD) Diabetes Mixed hyperlipidemia RICARDO (obstructive sleep apnea) Asthma Surgical History History of surgery on arm Hx of appendectomy Family History Father Asthma Heart disease Diabetes Myocardial infarction age 81 High cholesterol Mother Heart disease Asthma Anxiety Arthritis Depression Myocardial infarction ages 79 and 81 High cholesterol CHF (congestive heart failure) Social History household members: spouse housing: house pets and animals: Yes pets and animals: dog(s) Smoking Status: Never smoker second hand exposure: No alcohol intake: current alcohol intake frequency: 0-2 drinks per day Alcohol type: beer substance use type: does not use what type of physical activity do you participate in: running frequency: 3-4 times per week HPI HPI Chief Complaint: Hyperlipidemia/pre-diabetes Details: REGINALD BRADEN, is a 64 M who presents to the office today for follow up. He has H of hyperlipidemia. His grandfather had an SD in his 60's but was a smoker and drinker. His parents have heart disease, but first events in their 70's. He has never smoked. He drinks about one drink per day. He exercises regularly and follows a healthy diet. He has been on atorvastatin for years and he started ezetimibe 18 months ago. Lipids are controlled. TC 151 LDL 70 HDL 68 A1C is 6.3% He has sciatica and has been on steroids. ROS Const Constitutional: No fatigue, weight change or change in appetite Eyes Eyes: No change in vision ENT ENT: No dizziness/vertigo or difficulty swallowing Cardio Cardiology: No chest pain at rest, chest pain with exertion, shortness of breathor palpitations Musc Musculoskeletal: Positive for joint pain, radiating pain into limb, tingling andsciatica; No abnormal gait or numbness Neuro Neurology: Positive for tingling; No abnormal gait, memory loss or numbness Psych Psychiatric: No change in appetite, No memory loss and No Thoughts of harming yourself/Others Resp Respiratory: No cough, chest congestion or shortness of breath Gastro GI: No abdominal pain, constipation, diarrhea or difficulty swallowing Genitourinary Male: No burning urination Skin Skin: No itchy eyes or wounds Endo Endocrine: No fatigue or weight change Aller/Imm Allergy/Immunologic: No itchy eyes Exam Const General: cooperative, healthy appearing, comfortable, no acute distress, well developed and not cushingoid Nutritional Appearance: well nourished Orientation: alert, awake and oriented x3 HENMT Head: normal to inspection Ears: hearing grossly normal bilaterally Nose: external nose normal Mouth: oral mucosae normal Eyes General: appearance normal, both eyes and all related structures Alignment and Position: alignment normal Periorbital: periorbital findings normal Eyelids: eyelids normal Conjunctivae: conjunctivae normal Neck Neck: normal visual inspection Neck mass: No Thyroid: thyroid normal Carotids: no bruits Lymphatic: no lymphadenopathy noted Chest Chest palpation & inspection: normal inspection of the chest Resp Effort & Inspection: normal respiratory effort, able to speak in complete sentences, symmetric chest movement, no audible wheezes and no cough Auscultation: Bilateral: Clear to Auscultation Cardio Rate: regular rate Rhythm: regular rhythm Skin General: no rashes or lesions noted Neuro General: patient alert, patient awake and patient oriented x3 Cranial Nerves: CN's II-XI intact bilaterally Cognition: normal cognition Speech: speech normal Gait: normal gait Motor: muscle tone normal throughout Extrem General: no edema Psych Appearance: grossly normal Mental Status: mental status grossly normal Mood: congruent mood Affect: normal affect Speech and Movement: speech and movement normal Attitude: cooperative Thought Process: normal Thought Content: normal Judgment: judgment good Assessment and Plan Assessment and Plan (1) Mixed hyperlipidemia: Status: Chronic Plan: Controlled. Continue statin and ezetimibe. (2) Diabetes: Status: Acute Qualifiers: Diabetes mellitus type: type 2 Diabetes mellitus chcf insulin use:without chcf use Diabetes mellitus complication status: without complication Qualified Code(s): E11.9 - Type 2 diabetes mellitus without complications Plan: Discussed treatment options including SGLT2 and GLP-1. He will consider and make a choice. Discussed A1C goal and CV risk. I have spent [35] minutes today reviewing labs, records and history. Time includes coordinating care, interpretation of tests, discussion with patient's other health care providers via telephone. This also includes time I spent with the patient for exam, treatment plan and education as well as documenting clinical information. 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 Verona Hi MD ~ [facility] Work Phone: 1(543) 948-984610-08-2025 Evaluation note* Diagnosis Onset Date Resolution Status Admit Date Asthma chronic June 10, 025 11:10am Diabetes acute June 12, 2025 1:04pm Mixed hyperlipidemia chronic Octo 2024 1:04pm [facility] Work Phone: 1(923) 331-647507-24-2025 Note* Discharge Instr - Nursing - Lisa Manning RN - 03/26/2025 11:47 AM EDT The patient received a copy of Colonoscopy discharge instructions that contain information for how to contact the physician who performed the procedure and when to seek medical care. [facility]07-24-2025 Miscellaneous Notes* Discharge Instr - Nursing - Lisa Manning RN - 03/26/2025 11:47 AM EDT The patient received a copy of Colonoscopy discharge instructions that contain information for how to contact the physician who performed the procedure and when to seek medical care. [facility] History and physical note * Hubert Moreno MD - 03/26/2025 11:30 AM EDT HISTORY AND PHYSICAL Reginald Braden : 1960 REFERRING PHYSICIAN: No referring provider defined for this encounter. CHIEF COMPLAINT: Patient presents with: Consult: Last colonoscopy 2024 HPI: Reginald is a 64 year old male referred for endoscopy. Reginald notes due for screening colonoscopy-poor bowel prep. Reginald denies abdominal pain. Reginald denies diarrhea. Reginald denies constipation. Reginald denies a change in bowel habits. Reginald denies melena. Reginald denies bright red blood per rectum. Reginald denies hemorrhoids. Reginald denies family history of colon issues. Reginald denies heartburn. -takes omeprazole daily with good relief -notes EGD at [facility] recently Reginald denies dysphagia. Reginald denies a history of ulcers/ peptic ulcer disease. Reginald thinks last time he did Golytely, does recall following the instructions, denies any issues with constipation. Reginald has undergone prior endoscopy. Last colonoscopy was 11/[address] Moreno at [facility]. Sedation: MAC Impressions : - The entire examined colon is normal. - No specimens collected. CURRENT MEDICATIONS Current Outpatient Medications Medication Sig ezetimibe (ZETIA) 10 mg tablet Take 1 tablet by mouth once daily. atorvastatin (LIPITOR) 40 mg tablet Take 1 tablet by mouth once daily. albuterol HFA (PROAIR HFA) 90 mcg/actuation inhaler Inhale 2 puffs as instructed every 4 hours as needed for wheezing/shortness of breath. aspirin, enteric coated (ADULT LOW DOSE ASPIRIN) 81 mg EC tablet Take 81 mg by mouth once daily. omeprazole (PRILOSEC) 40 mg capsule Take 40 mg by mouth once daily. budesonide-formoterol (SYMBICORT) 160-4.5 mcg/actuation inhaler Inhale as instructed. No current facility-administered medications for this visit. ALLERGIES: Patient has no known allergies. PAST MEDICAL HISTORY PAST MEDICAL HISTORY Diagnosis Date Asthma (HCC) Elevated fasting glucose HLD (hyperlipidemia) RICARDO (obstructive sleep apnea) Pain in back Sleep apnea PAST SURGICAL HISTORY PAST SURGICAL HISTORY Procedure Laterality Date APPENDECTOMY 1979 FRACTURE SURGERY Left Left Arm/ Closed reduction SINUS SURGERY HX x 2 FAMILY HISTORY FAMILY HISTORY Problem Relation Age of Onset Coronary Artery Disease Father other (high cholesterolemia) Father other (suicide) Sister Prostate Cancer Paternal Grandmother SOCIAL HISTORY Social History Tobacco Use Smoking status: Never Substance Use Topics Alcohol use: Yes REVIEW OF SYMPTOMS: REVIEW OF SYSTEMS: General: The patient denies fatigue, denies weight loss, denies weight gain, denies feeling hot, and feelings of cold. Eyes: The patient denies glaucoma, denies eye injury/surgery, + glasses or contacts. Ear/Nose/Throat: The patient + allergies, denies hayfever, denies ear infections, and denies bloodynoses. Cardiovascular: The patient denies chest pain, denies heart disease, denies high blood pressure, denies high cholesterol, and denies poor circulation. Respiratory: The patient denies tuberculosis, denies pneumonia, denies frequent cough, denies shortness of breath, and denies coughing up blood. Gastrointestinal: The patient denies difficulty swallowing, denies acid reflux, denies ulcers, denies jaundice/hepatitis, denies gallbladder problems, denies vomiting, denies black or tarry stools, denies hemorrhoids, denies bleeding from rectum, denies diverticulitis, denies constipation, denies diarrhea, denies loss of stool control, and denies hernias. Kidney/Bladder: The patient denies kidney stones, denies urine infections, and denies bloody urine. Skin: The patient denies a history of skin cancer, denies bleeding/changing moles, and denies a history of skin rash. Neurologic: The patient denies a history of epilepsy/convulsions, denies headaches, denies head/spinal injuries, and denies stroke/TIA. Psychiatric: The patient denies psychiatric medications, denies depression, and denies voices. Endocrine: The patient denies thyroid disorders, denies diabetes, and denies hormonal problems. Hematologic: The patient denies a history of bruising, denies bleeding, and denies anemia. Infections: The patient denies a history of measles and mumps, denies rheumatic fever, and denies sexually transmitted diseases. Musculoskeletal: The patient denies back pain/injury, denies back problems, denies sciatica, deniesknee/foot trouble, denies arthritis, or denies gout. PHYSICAL EXAMINATION: General: The patient is 64 year old, male well nourished, well hydrated in no acute distress. The patient is oriented to time, place, and person. VITALS: Blood pressure 137/78, pulse (!) 55, height 185.4 cm (6' 1), weight 84.8 kg (187 lb), [id number]%. Body mass index is 24.67 kg/m . HEENT: Normal cephalic, ataumatic, pupils are equally round, sclera are anicteric, mucous membranesare moist, oropharynx is clear. Neck has no masses or asymmetry . Respiratory: Clear to auscultation. Cardiac: Regular rate and rhythm. Abdominal exam: Soft, nontender, with no palpable masses. No hepatosplenomegaly. No palpable hernias. Extremities: no clubbing or cyanosis LABORATORY VALUES: As Noted RADIOLOGIC STUDIES: As Noted Assessment IMPRESSION: screen for colon cancer PLAN: I have reviewed my findings with the surgeon. Will plan for lower endoscopy. We discussed therisks and benefits of the planned endoscopy in terms understandable to the patient. I have informedthe patient that complications can occur including failure to complete the endoscopy and perforation. Reginald had the opportunity to ask questions concerning the planned endoscopy. Reginald freely consents to surgery. I plan to use miraLAX bowel preparation I have explained to the patient the difference between IV conscious sedation and MAC anesthesia - and I have offered either, according to the patient's wishes. I have explained that with IV conscioussedation there is no anesthesia provider available and therefore there is a limitation of the amount of IV medications that can be given and that the patient may wake up in the middle of the procedure and/or experience pain/discomfort during the procedure. Further discussion was done and the patient was given the opportunity to ask questions and all questions were answered. Reginald chooses IV conscious sedation. Reginald was counseled that if there are changes in his/her medical condition, to let the office knowif surgery should proceed. If there are changes in patient's medical condition from time of this encounter to the day of the procedure that preclude anesthesia, patient may have procedure cancelled for patient's safety. Diagnoses: (Z12.11) Screen for colon cancer (primary encounter diagnosis) Portions of this documentation were copied and pasted from previous office visit notes in order to provide a cohesive continuity of the history. The note has been reviewed and edited and updated as necessary. Chantal Alves APRN.AURICULOTHERAPIST UPDATED HISTORY AND PHYSICAL EXAMINATION SERVICE DATE: 03/26/2025 SERVICE TIME: 10:55 AM PHYSICAL EXAM MUST BE COMPLETED ON ADMISSION The History and Physical (completed in the past 30 days) has been reviewed and the patient has beenexamined. The contents accurately reflect the patient's condition with the following additions or revisions since the H&P was completed. Examination indicates no changes. This H&P can be found in the attached. SIGNATURE: Hubert Moreno III, MD PATIENT NAME: Reginald Braden DATE: March 26, 2025 TIME: 10:55 AM [facility]07-24-2025 History and physical note* Hubert Moreno MD - 03/26/2025 11:30 AM EDT HISTORY AND PHYSICAL Reginald Braden : 1960 REFERRING PHYSICIAN: No referring provider defined for this encounter. CHIEF COMPLAINT: Patient presents with: Consult: Last colonoscopy 2024 HPI: Reginald is a 64 year old male referred for endoscopy. Reginald notes due for screening colonoscopy-poor bowel prep. Reginald denies abdominal pain. Reginald denies diarrhea. Reginald denies constipation. Reginald denies a change in bowel habits. Reginald denies melena. Reginald denies bright red blood per rectum. Reginald denies hemorrhoids. Reginald denies family history of colon issues. Reginald denies heartburn. -takes omeprazole daily with good relief -notes EGD at [facility] recently Reginald denies dysphagia. Reginald denies a history of ulcers/ peptic ulcer disease. Reginald thinks last time he did [facility], does recall following the instructions, denies any issues with constipation. Reginald has undergone prior endoscopy. Last colonoscopy was 11/[address] Moreno at [facility]. Sedation: MAC Impressions : - The entire examined colon is normal. - No specimens collected. CURRENT MEDICATIONS Current Outpatient Medications Medication Sig ezetimibe (ZETIA) 10 mg tablet Take 1 tablet by mouth once daily. atorvastatin (LIPITOR) 40 mg tablet Take 1 tablet by mouth once daily. albuterol HFA (PROAIR HFA) 90 mcg/actuation inhaler Inhale 2 puffs as instructed every 4 hours as needed for wheezing/shortness of breath. aspirin, enteric coated (ADULT LOW DOSE ASPIRIN) 81 mg EC tablet Take 81 mg by mouth once daily. omeprazole (PRILOSEC) 40 mg capsule Take 40 mg by mouth once daily. budesonide-formoterol (SYMBICORT) 160-4.5 mcg/actuation inhaler Inhale as instructed. No current facility-administered medications for this visit. ALLERGIES: Patient has no known allergies. PAST MEDICAL HISTORY PAST MEDICAL HISTORY Diagnosis Date Asthma (HCC) Elevated fasting glucose HLD (hyperlipidemia) RICARDO (obstructive sleep apnea) Pain in back Sleep apnea PAST SURGICAL HISTORY PAST SURGICAL HISTORY Procedure Laterality Date APPENDECTOMY 1978 FRACTURE SURGERY Left Left Arm/ Closed reduction SINUS SURGERY HX x 2 FAMILY HISTORY FAMILY HISTORY Problem Relation Age of Onset Coronary Artery Disease Father other (high cholesterolemia) Father other (suicide) Sister Prostate Cancer Paternal Grandmother SOCIAL HISTORY Social History Tobacco Use Smoking status: Never Substance Use Topics Alcohol use: Yes REVIEW OF SYMPTOMS: REVIEW OF SYSTEMS: General: The patient denies fatigue, denies weight loss, denies weight gain, denies feeling hot, and feelings of cold. Eyes: The patient denies glaucoma, denies eye injury/surgery, + glasses or contacts. Ear/Nose/Throat: The patient + allergies, denies hayfever, denies ear infections, and denies bloodynoses. Cardiovascular: The patient denies chest pain, denies heart disease, denies high blood pressure, denies high cholesterol, and denies poor circulation. Respiratory: The patient denies tuberculosis, denies pneumonia, denies frequent cough, denies shortness of breath, and denies coughing up blood. Gastrointestinal: The patient denies difficulty swallowing, denies acid reflux, denies ulcers, denies jaundice/hepatitis, denies gallbladder problems, denies vomiting, denies black or tarry stools, denies hemorrhoids, denies bleeding from rectum, denies diverticulitis, denies constipation, denies diarrhea, denies loss of stool control, and denies hernias. Kidney/Bladder: The patient denies kidney stones, denies urine infections, and denies bloody urine. Skin: The patient denies a history of skin cancer, denies bleeding/changing moles, and denies a history of skin rash. Neurologic: The patient denies a history of epilepsy/convulsions, denies headaches, denies head/spinal injuries, and denies stroke/TIA. Psychiatric: The patient denies psychiatric medications, denies depression, and denies voices. Endocrine: The patient denies thyroid disorders, denies diabetes, and denies hormonal problems. Hematologic: The patient denies a history of bruising, denies bleeding, and denies anemia. Infections: The patient denies a history of measles and mumps, denies rheumatic fever, and denies sexually transmitted diseases. Musculoskeletal: The patient denies back pain/injury, denies back problems, denies sciatica, deniesknee/foot trouble, denies arthritis, or denies gout. PHYSICAL EXAMINATION: General: The patient is 64 year old, male well nourished, well hydrated in no acute distress. The patient is oriented to time, place, and person. VITALS: Blood pressure 137/78, pulse (!) 55, height 185.4 cm (6' 1), weight 84.8 kg (187 lb), HbT434%. Body mass index is 24.67 kg/m . HEENT: Normal cephalic, ataumatic, pupils are equally round, sclera are anicteric, mucous membranesare moist, oropharynx is clear. Neck has no masses or asymmetry . Respiratory: Clear to auscultation. Cardiac: Regular rate and rhythm. Abdominal exam: Soft, nontender, with no palpable masses. No hepatosplenomegaly. No palpable hernias. Extremities: no clubbing or cyanosis LABORATORY VALUES: As Noted RADIOLOGIC STUDIES: As Noted Assessment IMPRESSION: screen for colon cancer PLAN: I have reviewed my findings with the surgeon. Will plan for lower endoscopy. We discussed therisks and benefits of the planned endoscopy in terms understandable to the patient. I have informedthe patient that complications can occur including failure to complete the endoscopy and perforation. Reginald had the opportunity to ask questions concerning the planned endoscopy. Reginald freely consents to surgery. I plan to use miraLAX bowel preparation I have explained to the patient the difference between IV conscious sedation and MAC anesthesia - and I have offered either, according to the patient's wishes. I have explained that with IV conscioussedation there is no anesthesia provider available and therefore there is a limitation of the amount of IV medications that can be given and that the patient may wake up in the middle of the procedure and/or experience pain/discomfort during the procedure. Further discussion was done and the patient was given the opportunity to ask questions and all questions were answered. Reginald chooses IV conscious sedation. Reginald was counseled that if there are changes in his/her medical condition, to let the office knowif surgery should proceed. If there are changes in patient's medical condition from time of this encounter to the day of the procedure that preclude anesthesia, patient may have procedure cancelled for patient's safety. Diagnoses: (Z12.11) Screen for colon cancer (primary encounter diagnosis) Portions of this documentation were copied and pasted from previous office visit notes in order to provide a cohesive continuity of the history. The note has been reviewed and edited and updated as necessary. Chantal Alves APRN.CNP UPDATED HISTORY AND PHYSICAL EXAMINATION SERVICE DATE: 03/26/2025 SERVICE TIME: 10:55 AM PHYSICAL EXAM MUST BE COMPLETED ON ADMISSION The History and Physical (completed in the past 30 days) has been reviewed and the patient has beenexamined. The contents accurately reflect the patient's condition with the following additions or revisions since the H&P was completed. Examination indicates no changes. This H&P can be found in the attached. SIGNATURE: Hubert Moreno III, MD PATIENT NAME: Reginald Bradne DATE: March 26, 2025 TIME: 10:55 AM [facility] Instructions* Patient Instructions* Chantal Alves APRN.CNP - 02/26/2025 3:14 PM EDT Images from the original note were not included. Miralax/Dulcolax Bowel Prep For this bowel preparation you will need to lemon picker the following medications at any pharmacy. Four (4) Dulcolax tablets (generic name Bisacodyl) 238 Gram (or 8.3 oz.) Bottle of Miralax (Generic name Polyethylene Glycol) A responsible family member or friend MUST be available to drive you home after your procedure. Youare NOT ALLOWED to drive, take a taxi, or leave the [facility] ALONE. If you do NOT have a responsible goat driver (family member or friend) to take you home, your exam cannot be done with sedation and WILL BE cancelled. Please remove all jewelry if possible. The [facility] or [facility] (depending on where your procedure is scheduled) will call you THE DAY BEFORE YOUR PROCEDURE with your arrival time. The time in My Chart is just an estimate. Please arriveat the time you are told the day before. Medication BLOOD THINNERS - Blood thinner medication may need to be stopped or adjusted before your colonoscopy, such as Coumadin, Plavix, Paradaxa and Eliquis. - Contact prescribing physician regarding holdingany blood thinner medication. If you were seen in the general surgery office, please follow their instructions as to if and when to hold any blood thinners. If you are having this procedure done by the request of any other providers and were NOT seen in our office, please contact your physician's office to see if you need to hold any medication prior to your procedure. INSULIN and/or DIABETIC MEDICATION -Please call the doctor that monitors your glucose levels. Your insulin dosage needs to be adjusted due to the diet restrictions required with this bowl preparation(please bring your diabetic medication with you on the day of your procedure). If you are on any of the listed medications below, please follow the instructions as to when to stop your medications. If you have any questions or concerns regarding your diabetic medication, pleasecontact your ordering providers office. Failure to hold the medications below could lead to the canc ellation of your procedure. Diabetic Medication Day Prior to Surgery Day of Surgery Communication Oral hypoglycemics (except SGLT2 inhibitors) Continue Hold all on DOS Nurse verifies patient did not take oral medications. Blood glucose checked in preoperative area SGLT2 inhibitors Canagliflozin (Invokana) Dapagliflozin (Farxiga) Empaglifozin (Jardiance) Hold 3 days preoperatively Hold Nurse verifies patient has not taken the medication 3 days preoperatively and has held DOS. Blood glucose check on arrival. SGLT2 inhibitor Ertugliflozin (Steglatro) Hold 4 days preoperatively Hold Nurse verifies patient has not taken the medication 4 days preoperatively and has held DOS. Blood glucose check on arrival. Non-insulin injectables (Except GLP-1 agonists) Take normal dose Hold all Nurse verifies patient has held. Blood glucose check on arrival GLP-1 Agonists (Injected) Semaglutide (Ozempic/Wegovy) Lixisenatide (Adlyxin) Tirzepatide (Mounjaro/Zepbound) Dulaglutide (Trulicity) Hold the week prior to surgery Hold Nurse verifies time of last dose and documents. Assess for symptoms of satiety or nausea. If patient took the week prior to surgery or on DOS, contact the anesthesiologist. GLP-1 Agonists (Daily Injected) Exenatide (Bydureon/ Byetta) Liraglutide (Victoza/Saxenda) Insulin glargine / lixisenatide (Soliqua) Continue Hold on DOS GLP-1 Agonists (oral) Semaglutide (Reybelsus) Continue Hold on DOS Nurse verifies time of last dose and documents. Assessfor symptoms of satiety or nausea. If patient took DOS, contact the anesthesiologist. Insulin pump Follow protocol Follow protocol Nurse verifies settings. Blood glucose check on arrival Long- or intermediate-acting insulin (Levemir, Lantus, NPH etc.) Take 75% of normal dose the night before surgery if possible Check fasting AM glucose. If 200 or greater, take half the prescribed dose. If under 200, hold AM dose. Nurse verifies dose and time. Blood glucose check on arrival. If you take GLP-1 agonists such as semaglutide (Ozempic, Wegovy, Rybelsus), dulaglutide (Trulicity), liraglutide (Victoza, Saxenda), exenatide (Byetta, Bydureon), or lixisenatide (Adylyxin), tirzepatide (MOUNJARO). if you take medication once or twice daily, do not take your medication for 1 day prior to your procedure if you take these medications weekly, do not take your medication the week ( hold the prior week's dose) before your procedure If you take aspirin, take it and ALL other medication prescribed by your doctor unless told otherwise by either the physician's office or Pre-Admission testing if having procedure done in a hospital setting (PACC) with a small sip of water only. You may take over the counter medications if you havea headache. TAKE ALL BLOOD PRESSURE MEDICATION THE MORNING OF THE PROCEDURE. Failure to take usual morning blood pressure meds may result in cancellation of the procedure if hypertensive. Hold erectile dysfunction medications for 48 hrs. prior to the procedure. Five (5) days before your colonoscopy Do not take medications that stop Diarrhea - Imodium, Kaopectate, or Pepto Bismol Do NOT take fiber supplements - Metamucil, Citrucel, FiberCon Do NOT take products that contain iron (check vitamin label) Two (2) to three (3) days before your colonoscopy DO NOT EAT HIGH FIBER FOODS No beans, seeds (flax, sunflower, quinoa), nuts, popcorn, multigrain bread salad/vegetables, or fresh and dried fruit. Do not eat red meat 3 days before your procedure. YOU MAY EAT Lean Chicken breast, fish, eggs, and soup YOU MUST BE ON CLEAR LIQUIDS FOR 2 FULL DAYS PRIOR TO PROCEDURE Two (2) Days before your colonoscopy ONLY DRINK CLEAR LIQUIDS for 2 DAYs BEFORE YOUR COLONOSCOPY. DO NOT EAT ANY SOLID FOODS. Drink at least eight (8) ounces of clear liquids every hour after waking up. Clear fluids include: Water, apple juice, white grape juice, broth (beef, chicken or vegetable), coffee and/or tea (NO DAIRY, MILK OR CREAMER) clear carbonated beverages (sprite, 7-up, haile-yordan), Gatorade, or other sport drinks, Ronen-Aid, Jell-O, Gummy Bears and popsicles. NOTHING RED IN COLOR. DO NOT DRINK ALCOHOL the day before or the day of your procedure. DAY 1 (2 days before your colonoscopy) Clear Liquids all day, you may have water, coffee or tea- NO DAIRY, Clear broth (Beef, Chicken or vegetable) Clear carbonated beverages, apple juice, white grape juice , Gatorade, Jell-O, Ronen-Aid, and popsicles. NO DAIRY, TOMATO, OR ORANGE JUICE. NO RED OR PURPLE! DAY 2 - (day before your colonoscopy) SAME DAY 1, Continue clear fluids and then follow the instructions below~ 8:00 AM - May Mix the Miralax prep with 64 oz. of Gatorade or any of the clear fluids listed above and place in fridge. 1:00 PM - Take 2 Dulcolax Tablets with 8oz of water 3:00 PM - Start to drink the Miralax mixture. - Finish by midnight 4:00 PM - Take 2 Dulcolax tablets with 8oz of water. You may continue to drink clear liquids while you are taking your prep and after you finish as longas it is before midnight. Drink lots of fluids so you don't become dehydrated. Nothing to drink after midnight unless instructed otherwise by nursing staff and/or physician. Please remember to take your normal medications the morning of your procedure with a small sip of water especially your blood pressure medications. If you are diabetic, you need to contact your physiciansregarding how to take your diabetic medications and/or insulin during the prepping period and the day of the procedure. The times above are a general guide. You may change the times if needed to accommodate your schedule. Example, instead of taking your first step at 1 PM you may take your first step at 6 PM. Your time frames would be: 6 PM take 2 Dulcolax tablets, at 8 PM you would start drinking the Miralax mixture and at 9 PM you would take two more Dulcolax tablets. Any questions please call [phone] or [phone] and ask for the general surgery nurses. What is a colonoscopy? A colonoscopy is an outpatient procedure in which the inside of the large intestine (colon and rectum) is examined. A colonoscopy is commonly used to evaluate gastrointestinal symptoms, such as rectal and intestinal bleeding, abdominal pain, or change in bowel habits. Colonoscopies are also performed in individuals without symptoms to check for colorectal polyps or cancer. A screening colonoscopyis recommended for anyone 50 years of age or older, and for anyone with parents, siblings, or children with a history of colorectal cancer or polyps. What happens before a colonoscopy? To have a successful colonoscopy, your bowel must be empty so that your physician can clearly view the colon. To do this, it is very important to read and follow all of the instructions given to you at least 2 weeks BEFORE your exam. If your bowel is not empty, your colonoscopy will not be successful and may have to be repeated. If you feel nauseated or vomit while taking the bowel preparation, wait 30 minutes before drinking more fluid and start with small sips of solution. Some activity (such as walking) may help decrease the nausea you are feeling. If the nausea persist, please contact the office at [phone] and askfor the provider's office that scheduled your colonoscopy or nurse labor conciliator at [phone]. You may experience skin irritation around the anus due to the passage of liquid stool. To prevent and treat skin irritation you should: Apply Vaseline or Desitin ointment to the skin around the anus before drinking the bowel preparation medications. These products can be purchased at any drugstore. Wipe the skin after each bowel movement with disposable wet wipes instead of toilet paper. These are found in the toilet paper area of the store. Sit in a bathtub filled with warm water for 10-15 minutes after you finish passing a stool; after soaking blot the skin dry with a soft cloth, apply Vaseline or Desitin ointment to the anal area, andplace a cotton ball just outside your anus to absorb any leaking fluid. What happens during a Colonoscopy? During a colonoscopy, an experienced physician uses a colonoscope (a long, flexible instrument about inch in diameter) to view the lining of the colon, the colonscope is inserted into the rectum and advanced through the large intestine. If necessary during a colonoscopy, small amounts of tissue canbe removed for analysis (biopsy) and polyps can be identifies and entirely removed. In many cases, a colonoscopy allows accurate diagnosis and treatment of colorectal problems without the need for a major operation. You are asked to wear a hospital gown and an IV will be started You are given a pain reliever and sedative intravenously (in your vein). You will feel relaxed and somewhat drowsy You will lie on your left side, with your knees drawn up towards your chest A small amount of air is used to expand the colon so the physicians can see the colon waters. You may feel mild cramping during the procedure. Cramping can be reduced by taking slow, deep breaths. The colonoscope is slowly withdrawn while the lining of your bowel is carefully examined. The procedure last from approximately 30-60 min. What happens after a Colonoscopy? You will stay in a recovery room for observation until you are ready for discharge You may feel some cramping and/or a sensation of having gas, but this quickly passes If sedation has been given, a responsible family member or friend MUST drive you home. Avoid alcohol, driving and operating machinery for 24 hrs. following the procedure. Unless otherwise instructed, you may immediately return to your normal diet. We recommend you wait until the day after your procedure to resume normal activities. If Polyps were removed or a biopsy was taken, the physicians performing the colonoscopy will tell you when it is safe to resume taking your blood thinners. If a biopsy was taken or if a polyp was removed, you will notice a little amount of rectal bleedingfor 1-2 days after the procedure. If you have a large amount of rectal bleeding, high or persistentfever, or severe abdominal pain within the next 2 weeks, please go to your local emergency room andcall the physician who performed your exam. [facility] History of Present illness Narrative* Chantal Alves APRN.AURICULOTHERAPIST - 02/26/2025 3:00 PM EDT HISTORY AND PHYSICAL Reginald Braden : 1960 REFERRING PHYSICIAN: No referring provider defined for this encounter. CHIEF COMPLAINT: Patient presents with: Consult: Last colonoscopy 2024 HPI: Reginald is a 64 year old male referred for endoscopy. Reginald notes due for screening colonoscopy-poor bowel prep. Reginald denies abdominal pain. Reginald denies diarrhea. Reginald denies constipation. Reginald denies a change in bowel habits. Reginald denies melena. Reginald denies bright red blood per rectum. Reginald denies hemorrhoids. Reginald denies family history of colon issues. Reginald denies heartburn. -takes omeprazole daily with good relief -notes EGD at [facility] recently Reginald denies dysphagia. Reginald denies a history of ulcers/ peptic ulcer disease. Reginald thinks last time he did Golytely, does recall following the instructions, denies any issues with constipation. Reginald has undergone prior endoscopy. Last colonoscopy was 11/[address] Moreno at [facility]. Sedation: MAC Impressions : - The entire examined colon is normal. - No specimens collected. Current Outpatient Medications Medication Sig ezetimibe (ZETIA) 10 mg tablet Take 1 tablet by mouth once daily. atorvastatin (LIPITOR) 40 mg tablet Take 1 tablet by mouth once daily. albuterol HFA (PROAIR HFA) 90 mcg/actuation inhaler Inhale 2 puffs as instructed every 4 hours as needed for wheezing/shortness of breath. aspirin, enteric coated (ADULT LOW DOSE ASPIRIN) 81 mg EC tablet Take 81 mg by mouth once daily. omeprazole (PRILOSEC) 40 mg capsule Take 40 mg by mouth once daily. budesonide-formoterol (SYMBICORT) 160-4.5 mcg/actuation inhaler Inhale as instructed. No current facility-administered medications for this visit. ALLERGIES: Patient has no known allergies. PAST MEDICAL HISTORY Diagnosis Date Asthma (HCC) Elevated fasting glucose HLD (hyperlipidemia) RICARDO (obstructive sleep apnea) Pain in back Sleep apnea PAST SURGICAL HISTORY Procedure Laterality Date APPENDECTOMY 1978 FRACTURE SURGERY Left Left Arm/ Closed reduction SINUS SURGERY HX x 2 FAMILY HISTORY Problem Relation Age of Onset Coronary Artery Disease Father other (high cholesterolemia) Father other (suicide) Sister Prostate Cancer Paternal Grandmother Social History Tobacco Use Smoking status: Never Substance Use Topics Alcohol use: Yes REVIEW OF SYMPTOMS: REVIEW OF SYSTEMS: General: The patient denies fatigue, denies weight loss, denies weight gain, denies feeling hot, and feelings of cold. Eyes: The patient denies glaucoma, denies eye injury/surgery, + glasses or contacts. Ear/Nose/Throat: The patient + allergies, denies hayfever, denies ear infections, and denies bloodynoses. Cardiovascular: The patient denies chest pain, denies heart disease, denies high blood pressure, denies high cholesterol, and denies poor circulation. Respiratory: The patient denies tuberculosis, denies pneumonia, denies frequent cough, denies shortness of breath, and denies coughing up blood. Gastrointestinal: The patient denies difficulty swallowing, denies acid reflux, denies ulcers, denies jaundice/hepatitis, denies gallbladder problems, denies vomiting, denies black or tarry stools, denies hemorrhoids, denies bleeding from rectum, denies diverticulitis, denies constipation, denies diarrhea, denies loss of stool control, and denies hernias. Kidney/Bladder: The patient denies kidney stones, denies urine infections, and denies bloody urine. Skin: The patient denies a history of skin cancer, denies bleeding/changing moles, and denies a history of skin rash. Neurologic: The patient denies a history of epilepsy/convulsions, denies headaches, denies head/spinal injuries, and denies stroke/TIA. Psychiatric: The patient denies psychiatric medications, denies depression, and denies voices. Endocrine: The patient denies thyroid disorders, denies diabetes, and denies hormonal problems. Hematologic: The patient denies a history of bruising, denies bleeding, and denies anemia. Infections: The patient denies a history of measles and mumps, denies rheumatic fever, and denies sexually transmitted diseases. Musculoskeletal: The patient denies back pain/injury, denies back problems, denies sciatica, deniesknee/foot trouble, denies arthritis, or denies gout. PHYSICAL EXAMINATION: General: The patient is 64 year old, male well nourished, well hydrated in no acute distress. The patient is oriented to time, place, and person. VITALS: Blood pressure 137/78, pulse (!) 55, height 185.4 cm (6' 1), weight 84.8 kg (187 lb), [id number]%. Body mass index is 24.67 kg/m . HEENT: Normal cephalic, ataumatic, pupils are equally round, sclera are anicteric, mucous membranesare moist, oropharynx is clear. Neck has no masses or asymmetry . Respiratory: Clear to auscultation. Cardiac: Regular rate and rhythm. Abdominal exam: Soft, nontender, with no palpable masses. No hepatosplenomegaly. No palpable hernias. Extremities: no clubbing or cyanosis LABORATORY VALUES: As Noted RADIOLOGIC STUDIES: As Noted Assessment IMPRESSION: screen for colon cancer PLAN: I have reviewed my findings with the surgeon. Will plan for lower endoscopy. We discussed therisks and benefits of the planned endoscopy in terms understandable to the patient. I have informedthe patient that complications can occur including failure to complete the endoscopy and perforation. Reginald had the opportunity to ask questions concerning the planned endoscopy. Reginald freely consents to surgery. I plan to use miraLAX bowel preparation I have explained to the patient the difference between IV conscious sedation and MAC anesthesia - and I have offered either, according to the patient's wishes. I have explained that with IV conscioussedation there is no anesthesia provider available and therefore there is a limitation of the amount of IV medications that can be given and that the patient may wake up in the middle of the procedure and/or experience pain/discomfort during the procedure. Further discussion was done and the patient was given the opportunity to ask questions and all questions were answered. Reginald chooses IV conscious sedation. Reginald was counseled that if there are changes in his/her medical condition, to let the office knowif surgery should proceed. If there are changes in patient's medical condition from time of this encounter to the day of the procedure that preclude anesthesia, patient may have procedure cancelled for patient's safety. Diagnoses: (Z12.11) Screen for colon cancer (primary encounter diagnosis) Portions of this documentation were copied and pasted from previous office visit notes in order to provide a cohesive continuity of the history. The note has been reviewed and edited and updated as necessary. Chantal Alves APRN.AURICULOTHERAPIST documented in this encounterMem[facility] NoteHNO ID: [id number] Author: CHANTAL ALVES APRN.KEVIN Service: ? Author Type: Nurse Practitioner Type: Progress Notes Filed: 02/26/2025 15:25 Note Text: HISTORY AND PHYSICAL Reginald Braden : 1960 REFERRING PHYSICIAN: No referring provider defined for this encounter. CHIEF COMPLAINT: Patient presents with: Consult: Last colonoscopy 2024 HPI: Reginald is a 64 year old male referred for endoscopy. Reginald notes due for screening colonoscopy-poor bowel prep. Reginald denies abdominal pain. Reginald denies diarrhea. Reginald denies constipation. Reginald denies a change in bowel habits. Reginald denies melena. Reginald denies bright red blood per rectum. Reginald denies hemorrhoids. Reginald denies family history of colon issues. Reginald denies heartburn. -takes omeprazole daily with good relief -notes EGD at [facility] recently Reginald denies dysphagia. Reginald denies a history of ulcers/ peptic ulcer disease. Reginald thinks last time he did Golytely, does recall following the instructions, denies any issues with constipation. Reginald has undergone prior endoscopy. Last colonoscopy was 11/[address] Moreno at [facility]. Sedation: MAC Impressions : - The entire examined colon is normal. - No specimens collected. Current Outpatient Medications Medication Sig ezetimibe (ZETIA) 10 mg tablet Take 1 tablet by mouth once daily. atorvastatin (LIPITOR) 40 mg tablet Take 1 tablet by mouth once daily. albuterol HFA (PROAIR HFA) 90 mcg/actuation inhaler Inhale 2 puffs as instructed every 4 hours as needed for wheezing/shortness of breath. aspirin, enteric coated (ADULT LOW DOSE ASPIRIN) 81 mg EC tablet Take 81 mg by mouth once daily. omeprazole (PRILOSEC) 40 mg capsule Take 40 mg by mouth once daily. budesonide-formoterol (SYMBICORT) 160-4.5 mcg/actuation inhaler Inhale as instructed. No current facility-administered medications for this visit. ALLERGIES: Patient has no known allergies. PAST MEDICAL HISTORY Diagnosis Date Asthma (HCC) Elevated fasting glucose HLD (hyperlipidemia) RICARDO (obstructive sleep apnea) Pain in back Sleep apnea PAST SURGICAL HISTORY Procedure Laterality Date APPENDECTOMY 1979 FRACTURE SURGERY Left Left Arm/ Closed reduction SINUS SURGERY HX x 2 FAMILY HISTORY Problem Relation Age of Onset Coronary Artery Disease Father other (high cholesterolemia) Father other (suicide) Sister Prostate Cancer Paternal Grandmother Social History Tobacco Use Smoking status: Never Substance Use Topics Alcohol use: Yes REVIEW OF SYMPTOMS: REVIEW OF SYSTEMS: General: The patient denies fatigue, denies weight loss, denies weight gain, denies feeling hot, and feelings of cold. Eyes: The patient denies glaucoma, denies eye injury/surgery, + glasses or contacts. Ear/Nose/Throat: The patient + allergies, denies hayfever, denies ear infections, and denies bloody noses. Cardiovascular: The patient denies chest pain, denies heart disease, denies high blood pressure, denies high cholesterol, and denies poor circulation. Respiratory: The patient denies tuberculosis, denies pneumonia, denies frequent cough, denies shortness of breath, and denies coughing up blood. Gastrointestinal: The patient denies difficulty swallowing, denies acid reflux, denies ulcers, denies jaundice/hepatitis, denies gallbladder problems, denies vomiting, denies black or tarry stools, denies hemorrhoids, denies bleeding from rectum, denies diverticulitis, denies constipation, denies diarrhea, denies loss of stool control, and denies hernias. Kidney/Bladder: The patient denies kidney stones, denies urine infections, and denies bloody urine. Skin: The patient denies a history of skin cancer, denies bleeding/changing moles, and denies a history of skin rash. Neurologic: The patient denies a history of epilepsy/convulsions, denies headaches, denies head/spinal injuries, and denies stroke/TIA. Psychiatric: The patient denies psychiatric medications, denies depression, and denies voices. Endocrine: The patient denies thyroid disorders, denies diabetes, and denies hormonal problems. Hematologic: The patient denies a history of bruising, denies bleeding, and denies anemia. Infections: The patient denies a history of measles and mumps, denies rheumatic fever, and denies sexually transmitted diseases. Musculoskeletal: The patient denies back pain/injury, denies back problems, denies sciatica, denies knee/foot trouble, denies arthritis, or denies gout. PHYSICAL EXAMINATION: General: The patient is 64 year old, male well nourished, well hydrated in no acute distress. The patient is oriented to time, place, and person. VITALS: Blood pressure 137/78, pulse (!) 55, height 185.4 cm (6' 1), weight 84.8 kg (187 lb), SpO2 98%. Body mass index is 24.67 kg/m?. HEENT: Normal cephalic, ataumatic, pupils are equally round, sclera are anicteric, mucous membrane (more content not included)...[facility]09-30-[facility] NotePlan of Care Patient instructed to call if problems. Discharge patient: Achieved all and/or the most significant goal(s). Discussed plan of care with: patient and caregiver/family Patient/caregiver agreeable with plan of care. Assessment Patient reports continued daily practice of throat clear reduction and daily practice of RVT HEP. Continued carryover of forwardly placed voicing to conversational speech per patient and spouse. Patient states he is mindful everyday adjusting how is producing voice if the raspiness returns. Monitored performance with RVT bubble blowing, humming, chanting [m] + vowels, reciting initial [m]words and loaded phrases and carryover to provided conversational phrases. Continued increased easewith therapy tasks, independent use of posture and pitch adjustments as needed to smooth the voice and carryover to spontaneous speech. Recommend continued practice 1-2 times a day and mindfulness with carryover. Continued discussion regarding office based vocal cord injections. Patient would like to continue to work on habituation at this time. He has agreed to notify clinician/MD should he decide he would like to proceed with injections. Voice: Voice quality based on the GRBAS scale: 0=absent; 1=mild; 2=moderate; 3=severe Grade: 1 Roughness: 1 Breathiness: 0 Asthenia: 0 Strain: 1 Voice: level 5 initial Voice: level 6 Reason For Visit An interactive audio and video telecommunication system which permits real time communications between the patient (at the originating site) and provider (at the distant site) was utilized to providethis telehealth service. Verbal consent was requested and obtained from REGINALD BRADEN on this date, 06/02/2022 10:30 AM , for a telehealth visit. Adult Risk Screening Initial Fall Risk Screening: REGINALD has fallen in the last 6 months. His fall resulted in the following injury: bruises on face.REGINALD does not have a fear of falling. He does not need assistance with sitting, standing or walking. Does not need assistance walking in his home. He does not need assistance in an unfamiliar setting. The patient is not using an assistive device. Pain Scale: On a scale of 0 to 10, the patient rates the pain at 0. [place] Learner(s) are identified by the patient as person(s) most likely to participate in providing care, such as managing medications or taking them to doctors? appointments. Primary Language for learning: Burmese. Insurance Insurance reviewed Visit number: 5 Onset Date: 2021 Subjective Living Environment: home - patient lives with family. Patient arrival: accompanied by spouse Patient alert and ready to participate in telehealth visit this date. 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 Short term goals: Patient will increase vocal wellness and decrease phono trauma in adherence with clinician prescribed vocal hygiene and wellness program per patient report 80% of his/her day. Patient will increase ability to produce voice without tension within 5 minute conversational task x 80% accuracy as judged by clinician observation and/or patient report. Patient will demonstrate independent use of voice techniques x 80% accuracy. Patient will increase the balance of the respiratory/laryngeal musculature x 80% accuracy. Treatment Time in clinic started at 1030 Time in clinic ended at 1100 Total time in clinic is 30 minutes. Provided to: patient and family Response to education: verbalized understanding, demonstrated understanding and needs reinforcement Patient/caregiver verbalized understanding and agreement: yes CPT Code 10176 Treatment of speech, language AND voice Signatures Electronically signed by : Natalie Alexander CCC-WEIGHT LOSS SALES CONSULTANT; Jun 05 2022 9:04AM EST (Author) [id number] NoteDischarge Summary SPEECH LANGUAGE PATHOLOGY Referral/Discharge Information: Date of Discharge: 06/02/3022 Date of Last Visit: 06/02/2022 Date of Evaluation: 04/03/2022 Number of Attended Visits: 5 Referred by: Dr. Cochran Problems/Issues Addressed: [facility] goals: Improve overall vocal health to foster increased participation levels at home, work and in the community environment. Short term goals: Patient will increase vocal wellness and decrease phono trauma in adherence with clinician prescribed vocal hygiene and wellness program per patient report 80% of his/her day. Patient will increase ability to produce voice without tension within 5 minute conversational task x 80% accuracy as judged by clinician observation and/or patient report. Patient will demonstrate independent use of voice techniques x 80% accuracy. Patient will increase the balance of the respiratory/laryngeal musculature x 80% accuracy. Reason for Discharge: Achieved all and/or the most significant goal(s). Signatures Electronically signed by : Natalie Alexander CCC-WEIGHT LOSS SALES CONSULTANT; Jun 05 2022 9:07AM EST (Author) [id number] NotePlan of Care Continue Current Plan of Care Progress with POC, as tolerated. Discussed plan of care with: patient and caregiver/family Patient/caregiver agreeable with plan of care. Assessment Patient reports continued daily practice of throat clear reduction and daily practice of RVT HEP. Noticeable carryover of forwardly placed voicing to conversational speech noted this date. Patient states he has been working on habituating increased diaphragmatic breath support with speech. Monitored performance with RVT bubble blowing, humming with a lingual anchor, chanting [m] + vowels, reciting initial [m] words and loaded phrases and carryover to provided conversational phrases. Advanced training to include humming without a lingual anchor and the introduction of vocal communicators. Patient starting to demonstrate increased ease with therapy tasks, independent use of posture and pitch adjustments as needed to smooth the voice and carryover to spontaneous speech. Recommend continued practice 1-2 times a day and mindfulness with carryover. Continued discussion regarding office based vocal cord injections. Patient to work on exercises foranother few weeks and will revisit thoughts then. Voice: Voice quality based on the GRBAS scale: 0=absent; 1=mild; 2=moderate; 3=severe Grade: 1-2 Roughness: 1-2 Breathiness: 0 Asthenia: 0 Strain: 1-2 Voice: level 5 initial Reason For Visit An interactive audio and video telecommunication system which permits real time communications between the patient (at the originating site) and provider (at the distant site) was utilized to providethis telehealth service. Verbal consent was requested and obtained from REGINALD BRADEN on this date, 05/12/2022 10:30 AM , for a telehealth visit. Adult Risk Screening Initial Fall Risk Screening: REGINALD has fallen in the last 6 months. His fall resulted in the following injury: bruises on face.REGINALD does not have a fear of falling. He does not need assistance with sitting, standing or walking. Does not need assistance walking in his home. He does not need assistance in an unfamiliar setting. The patient is not using an assistive device. Pain Scale: On a scale of 0 to 10, the patient rates the pain at 0. [place] Learner(s) are identified by the patient as person(s) most likely to participate in providing care, such as managing medications or taking them to doctors? appointments. Primary Language for learning: Burmese. Insurance Insurance reviewed Visit number: 4 Onset Date: 2021 Subjective Living Environment: home - patient lives with family. Patient arrival: accompanied by spouse Patient alert and ready to participate in telehealth visit this date. 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 Short term goals: Patient will increase vocal wellness and decrease phono trauma in adherence with clinician prescribed vocal hygiene and wellness program per patient report 80% of his/her day. Patient will increase ability to produce voice without tension within 5 minute conversational task x 80% accuracy as judged by clinician observation and/or patient report. Patient will demonstrate independent use of voice techniques x 80% accuracy. Patient will increase the balance of the respiratory/laryngeal musculature x 80% accuracy. Treatment Time in clinic started at 1030 Time in clinic ended at 1100 Total time in clinic is 30 minutes. Provided to: patient and family Response to education: verbalized understanding, demonstrated understanding and needs reinforcement Patient/caregiver verbalized understanding and agreement: yes CPT Code 81051 Treatment of speech, language AND voice Signatures Electronically signed by : Natalie Alexander CCC-WEIGHT LOSS SALES CONSULTANT; May 12 2022 11:27AM EST (Author) [id number] Reason for visit Narrative* An interactive audio and video telecommunication system which permits real time communications between the patient (at the originating site) and provider (at the distant site) was utilized to providethis telehealth service. * Verbal consent was requested and obtained from REGINALD BRADEN on this date, 05/12/2022 10:30 AM , for a telehealth visit. [facility] [address] [place] Work Phone: [phone]) 582-436609-01-2022 NotePlan of Care Continue Current Plan of Care Progress with POC, as tolerated. Discussed plan of care with: patient and caregiver/family Patient/caregiver agreeable with plan of care. Assessment Patient reports continued daily practice of throat clear reduction with some gradual success via sips of water. He has started using the sinus irrigation once a day in the evenings and finds it removes mucous but is short lasting. Encouraged continued use and follow up with Dr. Simmons regarding his sinus issues. Patient reports good follow though of head set microphone with phone calls which has allowed him toreduce his volume. Additionally, good follow through of flow phonation reported. Patient reports improved performance with max concentration. Min carryover to conversational speech. He states only when he speaks quickly can he stop the strained phonation. Monitored performance this date. Good performance noted with all tasks. Introduced RVT bubble blowing, humming with a lingual anchor, chanting [m] + vowels and reciting initial [m] words and loaded phrases. Similarly, patient able to achieve targeted airflow with max cues. However, then vocal quality moderately hoarse, breathy suspected 2/2 moderate size mid glottal gap. Regardless, encouraged HEP focused on RVT > flow phonation to more attempt more functional rebalancing. Introduced discussion about office based vocal cord injections for patient's consideration based onminimal progress thus far. Handouts emailed to facilitate optimal home carryover. Voice: Voice quality based on the GRBAS scale: 0=absent; 1=mild; 2=moderate; 3=severe Grade: 1-2 Roughness: 1-2 Breathiness: 0 Asthenia: 0 Strain: 1-2 Voice: level 5 initial Reason For Visit An interactive audio and video telecommunication system which permits real time communications between the patient (at the originating site) and provider (at the distant site) was utilized to providethis telehealth service. Verbal consent was requested and obtained from REGINALD BRADEN on this date, 05/04/2022 01:00 PM , for a telehealth visit. Adult Risk Screening Initial Fall Risk Screening: REGINALD has not fallen in the last 6 months. Medrano Learner(s) are identified by the patient as person(s) most likely to participate in providing care, such as managing medications or taking them to doctors? appointments. Primary Language for learning: Burmese. Insurance Insurance reviewed Visit number: 3 Onset Date: 2021 Subjective Living Environment: home - patient lives with family. Patient arrival: accompanied by spouse Patient alert and ready to participate in telehealth visit this date. Objective Progress to date: [facility] goals: Improve overall vocal health to foster increased participation levels at home, work and in the community environment. Short term goals: Patient will increase vocal wellness and decrease phono trauma in adherence with clinician prescribed vocal hygiene and wellness program per patient report 80% of his/her day. Patient will increase ability to produce voice without tension within 5 minute conversational task x 80% accuracy as judged by clinician observation and/or patient report. Patient will demonstrate independent use of voice techniques x 80% accuracy. Patient will increase the balance of the respiratory/laryngeal musculature x 80% accuracy. Treatment Time in clinic started at 1300 Time in clinic ended at 1340 Total time in clinic is 40 minutes. Provided to: patient and family Response to education: verbalized understanding, demonstrated understanding and needs reinforcement Patient/caregiver verbalized understanding and agreement: yes CPT Code 07624 Treatment of speech, language AND voice Signatures Electronically signed by : Natalie Alexander CCC-WEIGHT LOSS SALES CONSULTANT; May 04 2022 1:53PM EST (Author) [id number] Reason for visit Narrative* An interactive audio and video telecommunication system which permits real time communications between the patient (at the originating site) and provider (at the distant site) was utilized to providethis telehealth service. * Verbal consent was requested and obtained from REGINALD BRADEN on this date, 05/04/2022 01:00 PM , for a telehealth visit. [facility] [address] [place] Work Phone: [phone] NotePlan of Care Continue Current Plan of Care Progress with POC, as tolerated. Discussed plan of care with: patient and caregiver/family Patient/caregiver agreeable with plan of care. Assessment Patient reports daily practice of throat clear reduction with some success via sips of water. He admits that he needs to continue to work on reducing further. Therefore, reviewed cough/throat clear reduction techniques, seltzer gargle technique to safely remove mucus and vocal wellness strategies to reduce cough/throat clear triggers and phono trauma. In addition to using saline nose spray patient encouraged to try sinus irrigation 1-2 times a day. Instructions emailed. Patient encouraged to use a head set microphone with all phone calls in order to reduce vocal intensity. This was demonstrated this date by clinician during his virtual visit. Additionally, initiated voice retraining to improve diaphragmatic breath support and unload supraglottic compression associated with speech via flow phonation (all steps). Multimodality cueing, instruction in proper posture and repeated trials improved patient performance accuracy. Encouraged home practice several times a day for limited duration. Introduced CTT training as well targeting increased breath support via diaphragmatic breath support at the phrase level. Conversational phrases provided for daily home practice. Patient encouraged to transfer to conversation at least once a day. Clinician modeled all techniques and accurate patient follow through confirmed. Handouts emailed tofacilitate optimal home carryover. Voice: Voice quality based on the GRBAS scale: 0=absent; 1=mild; 2=moderate; 3=severe Grade: 1-2 Roughness: 1-2 Breathiness: 0 Asthenia: 0 Strain: 1-2 Voice: level 5 initial Reason For Visit An interactive audio and video telecommunication system which permits real time communications between the patient (at the originating site) and provider (at the distant site) was utilized to providethis telehealth service. Verbal consent was requested and obtained from REGINALD BRADEN on this date, 04/20/2022 01:00 PM , for a telehealth visit. Adult Risk Screening Initial Fall Risk Screening: REGINALD has not fallen in the last 6 months. Pain Scale: On a scale of 0 to 10, the patient rates the pain at 0. Medrano Learner(s) are identified by the patient as person(s) most likely to participate in providing care, such as managing medications or taking them to doctors? appointments. Primary Language for learning: Burmese. Insurance Insurance reviewed Visit number: 2 Onset Date: 2021 Subjective Living Environment: home - patient lives with family. Patient arrival: accompanied by spouse Patient alert and ready to participate in telehealth visit this date. 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 Short term goals: Patient will increase vocal wellness and decrease phono trauma in adherence with clinician prescribed vocal hygiene and wellness program per patient report 80% of his/her day. Patient will increase ability to produce voice without tension within 5 minute conversational task x 80% accuracy as judged by clinician observation and/or patient report. Patient will demonstrate independent use of voice techniques x 80% accuracy. Patient will increase the balance of the respiratory/laryngeal musculature x 80% accuracy. Treatment Time in clinic started at 1300 Time in clinic ended at 1325 Total time in clinic is 25 minutes. Provided to: patient and family Response to education: verbalized understanding, demonstrated understanding and needs reinforcement Patient/caregiver verbalized understanding and agreement: yes Limited Codes ([facility] Only): [id number] Speech language treatment limited. 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 * Verbal consent was requested and obtained from REGINALD BRADEN on this date, 04/20/2022 01:00 PM , for a telehealth visit. BP-Vsogafnwfrlyld-Voovlnv Voice Work Phone: Evaluation noteNo assessment information available [facility] Work Phone: Evaluation note* Diagnosis Onset Date Resolution Status Asthma chronic [facility] Work Phone: Evaluation note* Diagnosis Screen for colon cancer- Primary Special screening for malignant neoplasms, colon documented in this encounter [facility] note* Diagnosis Encounter for screening colonoscopy- Primary Special screening for malignant neoplasms, colon Screen for colon cancer Special screening for malignant neoplasms, [facility] Diagnosis Onset Date Resolution Status Admit Date Asthma chronic June 10 025 11:10am [facility] [employer] Work Phone: History of Present illness Narrative* REGINALD BRADEN is a 61 year male referred to me today by Dr. Simmons for dysphonia. * He reports a 10-year history of dysphonia and hoarseness that was initially on and off until 2017 following a severe asthma attack. Today, his voice is stable. He did not receive voice therapy. Sincethat time he has noticed that his voice has been persistently hoarse. He recently underwent sinus surgery and septoplasty earlier this year and attempt to reduce his postnasal drainage. He is currently using nasal saline continues to have postnasal drainage. Denies heartburn or reflux-like symptoms. He has been trialed on omeprazole for the past year with no improvement to his voice. 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 He reports that his voice worsens as the day goes on. No voice recovery over the weekend as he is very social. Symptoms worsen with voice use, and appear to be worse in the morning. He endorses throat clearing, but this is improved since his sinus surgery and no coughing. * His asthma is well controlled. * No heartburn or indigestion. He is currently on PPIs and reports GERD being well controlled. * He has age related hearing loss, but this is not worsened. * PMH: asthma * FHx: reviewed and non-contributory to current complaint. * I personally reviewed the patient AEMR notes, and consult notes * ROS performed. All other systems are reviewed and are negative for complaint and as noted above. CS-Fncyghwiwzdhzd-Osteinu Work Phone: History of Present illness Narrative* REGINALD BRADEN is a 61 year male referred to me today by Dr. Simmons for dysphonia. * He reports a 10-year history of dysphonia and hoarseness that was initially on and off until 2017 following a severe asthma attack. Today, his voice is stable. He did not receive voice therapy. Sincethat time he has noticed that his voice has been persistently hoarse. He recently underwent sinus surgery and septoplasty earlier this year and attempt to reduce his postnasal drainage. He is currently using nasal saline continues to have postnasal drainage. Denies heartburn or reflux-like symptoms. He has been trialed on omeprazole for the past year with no improvement to his voice. 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 He reports that his voice worsens as the day goes on. No voice recovery over the weekend as he is very social. Symptoms worsen with voice use, and appear to be worse in the morning. He endorses throat clearing, but this is improved since his sinus surgery and no coughing. * His asthma is well controlled. * No heartburn or indigestion. He is currently on PPIs and reports GERD being well controlled. * He has age related hearing loss, but this is not worsened. * PMH: asthma * FHx: reviewed and non-contributory to current complaint. * I personally reviewed the patient AEMR notes, and consult notes * ROS performed. All other systems are reviewed and are negative for complaint and as noted above. RO-Vfydjsbesednaw-Rnlmnbi Voice Work Phone: history of Present illness Narrative* Patient reports daily practice of throat clear reduction with some success via sips of water. He admits that he needs to continue to work on reducing further. Therefore, reviewed cough/throat clear reduction techniques, seltzer gargle technique to safely remove mucus and vocal wellness strategies to reduce cough/throat clear triggers and phono trauma. In addition to using saline nose spray patient encouraged to try sinus irrigation 1-2 times a day. Instructions emailed. * Patient encouraged to use a head set microphone with all phone calls in order to reduce vocal intensity. This was demonstrated this date by clinician during his virtual visit. * Additionally, initiated voice retraining to improve diaphragmatic breath support and unload supraglottic compression associated with speech via flow phonation (all steps). Multimodality cueing, instruction in proper posture and repeated trials improved patient performance accuracy. Encouraged home p ractice several times a day for limited duration. Introduced CTT training as well targeting increased breath support via diaphragmatic breath support at the phrase level. Conversational phrases provided for daily home practice. Patient encouraged to transfer to conversation at least once a day. * Clinician modeled all techniques and accurate patient follow through confirmed. Handouts emailed tofacilitate optimal home carryover. * Voice: Voice quality based on the GRBAS scale: 0=absent; 1=mild; 2=moderate; 3=severe * Grade: 1-2 * Roughness: 1-2 * Breathiness: 0 * Asthenia: 0 * Strain: 1-2 * Voice: level 5 initial DI-Xwoolpdqullqwf-Uortfdk Voice Work Phone: history of Present illness Narrative* Patient reports continued daily practice of throat clear reduction with some gradual success via sips of water. He has started using the sinus irrigation once a day in the evenings and finds it removes mucous but is short lasting. Encouraged continued use and follow up with Dr. Simmons regarding his sinus issues. * Patient reports good follow though of head set microphone with phone calls which has allowed him toreduce his volume. * Additionally, good follow through of flow phonation reported. Patient reports improved performance with max concentration. Min carryover to conversational speech. He states only when he speaks quickly can he stop the strained phonation. Monitored performance this date. Good performance noted with all tasks. Introduced RVT bubble blowing, humming with a lingual anchor, chanting [m] + vowels and reciting initial [m] words and loaded phrases. Similarly, patient able to achieve targeted airflow with max cues. However, then vocal quality moderately hoarse, breathy suspected 2/2 moderate size mid glottal gap. Regardless, encouraged HEP focused on RVT > flow phonation to more attempt more functional rebalancing. * Introduced discussion about office based vocal cord injections for patient's consideration based onminimal progress thus far. * Handouts emailed to facilitate optimal home carryover. * Voice: Voice quality based on the GRBAS scale: 0=absent; 1=mild; 2=moderate; 3=severe * Grade: 1-2 * Roughness: 1-2 * Breathiness: 0 * Asthenia: 0 * Strain: 1-2 * Voice: level 5 initial [facility] [address] [place] Work Phone: History of Present illness Narrative* Patient reports continued daily practice of throat clear reduction and daily practice of RVT HEP. Noticeable carryover of forwardly placed voicing to conversational speech noted this date. Patient states he has been working on habituating increased diaphragmatic breath support with speech. * Monitored performance with RVT bubble blowing, humming with a lingual anchor, chanting [m] + vowels, reciting initial [m] words and loaded phrases and carryover to provided conversational phrases. Advanced training to include humming without a lingual anchor and the introduction of vocal communicators. Patient starting to demonstrate increased ease with therapy tasks, independent use of posture and pitch adjustments as needed to smooth the voice and carryover to spontaneous speech. Recommend continued practice 1-2 times a day and mindfulness with carryover. * Continued discussion regarding office based vocal cord injections. Patient to work on exercises foranother few weeks and will revisit thoughts then. * Voice: Voice quality based on the GRBAS scale: 0=absent; 1=mild; 2=moderate; 3=severe * Grade: 1-2 * Roughness: 1-2 * Breathiness: 0 * Asthenia: 0 * Strain: 1-2 * Voice: level 5 initial [facility] [address] [place] Work Phone: Reason for referral (narrative)No reason for referral [facility] Work Phone: Reason for visit Narrative* Outpatient Procedure (Routine) - Closed Specialty Diagnoses / Procedures Referred By Erica macdonald Referred To Contact [facility] Diagnoses Screen for colon cancer Procedures COLONOSCOPY SCREENING COLONOSCOPY FLX DX W/COLLJ SPEC WHEN Chantal Hampton APRN.AURICULOTHERAPIST [address] [place] [address] Phone: tel: fax: Ambulatory Surgery [address] [place] [address] Phone: tel: Referral ID Status Reason Start Date Expiration Date V isits Requested Visits Authorized [id number] Closed Auto-Generate d Referral 03/26/2025 02/26/2026 1 1 [facility] Chief Complaint and Reason for Visit Chief Complaint CHRONIC SINUSITIS SINUSITIS Chief Complaint CHRONIC SINUSITIS SINUSITIS 6 M FU SINUSITIS Reason for Visit Asthma Chief Complaint E ORDERS Chief Complaint Admit Date E ORDER March 04, 2025 11:29 am Chief Complaint Admit Date E ORDER March 04, 2025 11:29 am E ORDER June 09, 2025 1: 27pm 1 Y FU June 10, 2025 11 :10am Reason for Visit Admit Date Asthma June 10, 2025 11 :10am Chief Complaint Admit Date E ORDER March 04, 2025 11:29 am E ORDER June 09, 2025 1: 27pm 1 Y FU June 10, 2025 11 :10am 16 M FU June 12, 2025 1 :04pm INT LAB ORDERS BY 2 DOCTORS June 7:34am Reason for Visit Admit Date Asthma June 10, 2025 11 :10am Diabetes June 12, 2025 1 :04pm Mixed hyperlipidemia June 12, 2025 1:04pm Family History No Family History Records Found Relationship Condition Age at Onset Recorded Date/T lula father Asthma Unknown Cardiac disease Unknown mother Cardiac disease Unknown Asthma Unknown Relationship Condition Age at Onset Recorded Date/T lula father Asthma Unknown Cardiac disease Unknown Diabetes mellitus Unknown Myocardial infarction Unknown High blood cholesterol Unknown mother Cardiac disease Unknown Asthma Unknown Anxiety Unknown Arthritis Unknown Depression Unknown Congestive heart failure Unknown Advance Directives No Advanced Directives Records Found Advance Directive Response Recorded Date/ Time Living Will Yes November 14, 2018 11:32am Power of Waterside Worker Yes November 14 11:32am Advance Directive Response Recorded Date/ Time Living Will Yes November 14, 2018 10:32am Power of Waterside Worker Yes November 14 10:32am Chief Complaint VoiceVoice Summary Purpose Additional Source Comments Goals (unrecognized section and content) Goals may be documented in a n alternate sectionGoals may be documented in an alternate sectionGoals may be documented in an alternate sectionGoals may be documented in an alternate sectionGoals may be documented in an alternate sectionGoals may be documented in an alternate section Reason for Visit (unrecogniz ed section and content) Reason Comments Consult Last colonoscopy (unrecognized sect ion and content) No Status Records FoundNo Status Records FoundNo Status Records FoundNo Status Records Found INFORMATION SOURCE (unrecogn ized section and content) DATE CREATED AUTHOR 06/06/2022 [employer] DATE CREATED AUTHOR AUTHOR'S ORGANIZ ATION 02/11/2023 [facility] DATE CREATED AUTHOR AUTHOR'S ORGANIZ ATION 07/11/2025 [facility] DATE CREATED AUTHOR AUTHOR'S ORGANIZ ATION 07/12/2025 [facility] Care Teams (unrecognized sec tion and content) Team Status: Active Member Role Status Dates Dr. Keke Boyd MD Family Provider Active Dr. Keke Boyd MD Primary Care Provider Active Team Status: Inactive Member Role Status Dates Dr. Keke Boyd MD Primary Care Prov ider, Attending Provider, Referring Provider Active Out Patient Therapist Relationship Specialty Start Date End Date Verona Hi MD [address] [facility] [address] [place] [address] PCP - General Family Medicine 02/25/25 Out Patient Therapist Relationship Specialty Start Date End Date Verona Hi MD [address] [facility] [address] [place] [address] PCP - General [facility] Medicine 02/25/25 Team Status: Active Member Role/Relationship Status Dates Dr. Keke Boyd MD Family Provider Active Dr. Verona Hi MD Primary Care Provider Active Team Status: Inactive Member Role/Relationship Status Dates Dr. Verona Hi MD Primary Care Provider Active Start: March 04, 2025 End: March 04, 2025 Boris Rita SHOE STAMPER, SHOE STAMPER-C Attending Provider Active Start: March 04, 2025 End: March 04, 2025 Boris Salinas SHOE STAMPER, SHOE STAMPER-C Referring Provider Active Start: March 04, 2025 End: March 04, 2025 Out Patient Therapist Relationship Specialty Start Date End Date Verona Hi MD [address] [facility] [address] [place] [address] PCP - [facility] Medicine 02/25/25 Team Status: Active Member Role/Relationship Status Dates Dr. Verona Hi MD Primary care physician Active Team Status: Inactive Member Role/Relationship Status Dates Dr. Verona Hi MD Primary care physician Active Start: March 04, 2025 End: March 04, 2025 Boris Salinas SHOE STAMPER, SHOE STAMPER-C Attending physician Active Start: March 04, 2025 End: March 04, 2025 [facility], SHOE STAMPER-C Referring Provider Active Start: March 04, 2025 End: March 04, 2025 Team Status: Active Member Role/Relationship Status Dates Dr. Verona Hi MD Primary care physician Active Start: June 09, 2025 Dr. Verona Hi MD Attending physician Active Start: June 09, 2025 Dr. Verona Hi MD Referring Provider Active Start: June 09, 2025 Team Status: Inactive Member Role/Relationship Status Dates Dr. Verona Hi MD Primary care physician Active Start: June 10, 2025 End: June 10, 2025 Dr. Amol Chatman DO Attending physician Active Start: June 10, 2025 End: June 10, 2025 Dr. Keke Boyd MD Referring Provider Active Start: June 10, 2025 End: June 10, 2025 Team Status: Inactive Member Role/Relationship Status Dates Dr. Verona Hi MD Primary care physician Active Start: June 09, 2025 End: June 09, 2025 Dr. Verona Hi MD Attending physician Active Start: June 09, 2025 End: June 09, 2025 Dr. Verona Hi MD Referring Provider Active Start: June 09, 2025 End: June 09, 2025 Team Status: Inactive Member Role/Relationship Status Dates Dr. Keke Boyd MD Referring Provider Active Start: June 12, 2025 End: June 12, 2025 Dr. Jermain Solis MD Attending physician Active St art: June 12, 2025 End: June 12, 2025 Dr. Verona Hi MD Primary care physician Active Start: June 12, 2025 End: June 12, 2025 Team Status: Inactive Member Role/Relationship Status Dates Dr. Verona Hi MD Primary care physician Active Start: June 13, 2025 End: June 13, 2025 Dr. Jermain Solis MD Attending physician Active St art: June 13, 2025 End: June 13, 2025 Dr. Jermain Solis MD Referring Provider Active Sta rt: June 13, 2025 End: June 13, 2025 Source Comments (unrecognize d section and content) In the event this informatio n is protected by the Federal Confidentiality of Alcohol and Drug Abuse Patient Records regulations: The Federal rules restrict any use of the information to criminally investigate or prosecute any alcohol or drug abuse patient.[facility] HospitalIn the event this information is protected by the Federal Confidentiality of Alcohol and Drug Abuse Patient Records regulations: The Federal rules restrict any use of the information to criminally investigate or prosecute any alcohol or drug abuse patient.[facility] HospitalIn the event this information is protected by the Federal Confidentiality of Alcohol and Drug Abuse Patient Records regulations: The Federal rules restrict any use of the information to criminally investigate or prosecute any alcohol or drug abuse patient.[facility] HospitalIn the event this information is protected by the Federal Confidentiality of Alcohol and Drug Abuse Patient Records regulations: The Federal rules restrict any use of the information to criminally investigate or prosecute any alcohol or drug abuse patient.[facility] FOR RECORDS PERTAINING TO PATIENTS WHO ARE OR HAVE BEEN ENROLLED IN A CHEMICAL DEPENDENCY/SUBSTANCEABUSE PROGRAM, SOME INFORMATION MAY BE OMITTED. This clinical summary was aggregated from multiple sources. Caution should be exercised in using it in the provision of clinical care. This summary normalizes information from multiple sources, and as a consequence, information in this document may materially change the coding, format and clinical context of patient data. In addition, data may be omitted in some cases. CLINICAL DECISIONS SHOULD BE BASED ON THE PRIMARY CLINICAL RECORDS. [facility] [employer] [facility]. provides no warranty or guarantee [id number] the accuracy [id number] completeness [phone] in this [id number]
== END | disposition home or self-care (01) ==
LOC: MTRAD 15:21
PROVIDERS: PCP Family Medicine; Referring Provider Anesthesiology Pain Medicine; Visit Provider Anesthesiology Pain Medicine
DX: M25.551 Pain in right hip (principal)
CPT/HCPCS: 73502